=== PATIENT | female | born 1940 | race Caucasian/White ===

== ENCOUNTER 2019-01-12 11:01 | Inpatient (IN) | payer OTHER ==
[2019-01-12] VITALS (11 sets, daily range): BP systolic 120–150; BP diastolic 60–79; PULSE 72–98; RESP 18–20; Ht 152.4 cm; Wt 75.8 kg
[~2019-01-12] VITALS: Ht 152.4 cm; Wt 75.8 kg
[~2019-01-12 11:01] MED LIST: AMIO200T4 PO; AMLO-147 PO; APIX2.5T PO; BENA20TA4 PO; BUME1TAB PO; CALC667C PO; GLIM2TAB PO; IBAN150T7 PO; METO-448 PO; PIOG15TA12 PO; TRAZ-111 PO
[2019-01-12] MEDS ORDERED: ALBUTEROL 0.083% (NEB) 2.5 MG/3 ML AMP INH STA (11:19)
[2019-01-12] MEDS ORDERED: ALBUTEROL 0.083% (NEB) 2.5 MG/3 ML AMP HHN STA (11:56)
--- NOTE | 2019-01-12 13:28 | ERD ---
ER Documentation Chief Complaint Chief Complaint SOB FROM DIALYSIS, DID NOT HAVE DIALYSIS HPI 78-year-old female presents by paramedics from her dialysis center for shortness of breath. According to the paramedics, they were called by the patient's dialysis center prior to initiation of the patient's dialysis for evaluation of the patient being short of breath. Patient states that she has had no chest pain, fever, cough, sputum production or hemoptysis but began feeling short of breath today. 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 Pre-hospital vital signs were reviewed. Pre-hospital diagnostic tests were reviewed. ROS All systems reviewed and are negative except as per history of present illness. Medications Home Meds Active Scripts Benazepril Hcl* (Benazepril Hcl*) 20 Mg Tablet, 20 MG PO BID, #60 TAB Prov:ULYSSES LOVE MD 05/09/16 Apixaban* (Eliquis*) 2.5 Mg Tablet, 5 MG PO BID, #60 TAB 1 Refill Prov:ULYSSES LOVE MD 05/09/16 Metoprolol Tartrate* (Lopressor*) 25 Mg Tab, 12.5 MG PO BID, #60 TAB Prov:ULYSSES LOVE MD 05/09/16 Amiodarone Hcl* (Amiodarone Hcl*) 200 Mg Tablet, 200 MG PO DAILY, #30 TAB Prov:ULYSSES LOVE MD 05/09/16 Amlodipine Besylate* (Amlodipine Besylate*) 10 Mg Tablet, 10 MG PO DAILY, #30 TAB Prov:ULYSSES LOVE MD 05/09/16 Reported Medications Ibandronate Sodium* (Boniva*) 150 Mg Tablet, 150 MG PO Q7D, TAB 05/07/16 Trazodone Hcl* (Trazodone Hcl*) 50 Mg Tablet, 50 MG PO QHS, #30 TAB 05/07/16 Bumetanide* (Bumetanide*) 1 Mg Tablet, 1 MG PO BID, TAB 05/07/16 Glimepiride* (Glimepiride*) 2 Mg Tablet, 2 MG PO WITH BREAKFAST DINNE, TAB 05/07/16 Pioglitazone Hcl* (Actos*) 15 Mg Tablet, 15 MG PO DAILY, #30 TAB 05/07/16 Calcium Acetate* (Calcium Acetate*) 667 Mg Capsule, 1334 MG PO WITH MEALS TID, #60 CAP 05/07/16 Allergies Allergies: Uncoded Allergies: ANTIBIOTIC (Adverse Reaction, Unknown, 05/07/16) PMhx/Soc History of Surgery: Yes (CATARACT, AV FISTULA GRAFT, CHOLECYSTECTOMY) Hx Neurological Disorder: No Hx Respiratory Disorders: No Hx Cardiac Disorders: Yes (HYPERLIPIDEMIA, HTN) Hx Psychiatric Problems: No Hx Miscellaneous Medical Probl: Yes (diabetes, dyslipidemia and chronic kidney disease stage IV dialysis) Hx Alcohol Use: No Hx Substance Use: No Hx Tobacco Use: No Smoking Status: Never smoker FmHx Noncontributory for chief complaint Physical Exam Vitals Vital Signs Date Temp Pulse Resp B/P (MAP) Pulse Ox O2 O2 Flow FiO2 Time Delivery Rate 01/12/19 108 20 94 21 12:34 01/12/19 103 24 91 21 11:39 01/12/19 98.3 85 24 156/80 92 11:14 (105) Physical Exam GENERAL: Elderly female who appears short of breath HEENT: Pupils equal, round, and reactive to light. EOMI. There is no scleral icterus. NECK: C-spine is soft and supple, there is no meningismus. There is no cervical lymphadenopathy. LUNGS: Wheezing and crackles bilaterally. She is tachypneic with retractions. No accessory muscle use HEART: Irregularly irregular rate and rhythm with no murmurs rubs or gallops ABDOMEN: Soft, non-tender, non-distended. There are bowel sounds in all four quadrants. No rebound or guarding. EXTREMITIES: 1+ edema with no cyanosis or clubbing NEURO: The patient moves all four extremities with 5/5 strength. Cranial nerves II - XII are intact. Normal gait. Alert and oriented SKIN: There is no apparent rash or petechiae. HEME/LYMPHATIC: There is no evidence of excessive bruising or lymphedema. PSYCHIATRIC: The patient does not appear anxious or depressed. Result Diagram: 01/12/19 1120 01/12/19 1120 Results 24 hrs Laboratory Tests Test 01/12/19 11:17 01/12/19 11:20 01/12/19 11:43 Bedside Glucose 107 mg/dL White Blood Count 6.5 10^3/ul Red Blood Count 3.48 10^6/ul Hemoglobin 10.3 g/dl Hematocrit 32.7 % Mean Corpuscular Volume 94.0 fl Mean Corpuscular Hemoglobin 29.6 pg Mean Corpuscular 31.5 g/dl Hemoglobin Concent Red Cell Distribution Width 17.4 % Platelet Count 226 10^3/UL Mean Platelet Volume 10.6 fl Immature Granulocytes % 0.500 % Neutrophils % 73.6 % Lymphocytes % 15.0 % Monocytes % 7.8 % Eosinophils % 2.6 % Basophils % 0.5 % Nucleated Red Blood Cells % 0.0 /100WBC Immature Granulocytes # 0.030 10^3/ul Neutrophils # 4.8 10^3/ul Lymphocytes # 1.0 10^3/ul Monocytes # 0.5 10^3/ul Eosinophils # 0.2 10^3/ul Basophils # 0.0 10^3/ul Nucleated Red Blood Cells # 0.0 10^3/ul Prothrombin Time 15.6 Sec Prothrombin Time Ratio 1.2 INR International Normalized Ratio 1.23 Activated Partial Thromboplast 45.1 Sec Time Sodium Level 136 mmol/L Potassium Level 4.3 mmol/L Chloride Level 92 mmol/L Carbon Dioxide Level 32 mmol/L Anion Gap 12 Blood Urea Nitrogen 50 mg/dl Creatinine 6.13 mg/dl Est Glomerular Filtrat Rate mL/min mL/min Glucose Level 103 mg/dl Calcium Level 9.2 mg/dl Total Bilirubin 0.3 mg/dl Direct Bilirubin 0.00 mg/dl Indirect Bilirubin 0.3 mg/dl Aspartate Amino Transf (AST/SGOT) 30 IU/L Alanine 23 IU/L Aminotransferase (ALT/SGPT) Alkaline Phosphatase 146 IU/L Troponin I < 0.012 ng/ml Total Protein 7.2 g/dl Albumin 4.1 g/dl Globulin 3.10 g/dl Albumin/Globulin Ratio 1.32 POC Venous Lactate 0.9 mmol/L Current Medications Medications Dose Sig/Rachana Start Time Status Last (Trade) Ordered Route PRN Stop Time Admin Dose Reason Admin Albuterol 2.5 mg ONCE STAT 01/12/19 DC 01/12/19 (Proventil INH 11:19 11:38 0.083% (Neb)) 01/12/19 11:20 Albuterol 5 mg ONCE STAT 01/12/19 DC 01/12/19 (Proventil HHN 11:56 12:32 0.083% (Neb)) 01/12/19 11:57 Procedures/MDM Patient was taken to a room, seen and evaluated. Comfort measures were initiated. Diagnostic tests were ordered and reviewed. 3 LEAD RHYTHM STRIP: Atrial fibrillation EK lead EKG reviewed by myself: Atrial fibrillation at 102 bpm Left axis deviation, nonspecific interventricular conduction delay Nonspecific ST and T wave changes without ST elevation Impression: Abnormal nonspecific EKG RADIOLOGY: Reviewed with the radiologist CONSULTATION: Hospitalist was notified for admission Dr. Cote was notified for nephrology consultation REEVALUATION: 1320: Diagnostic tests were appreciated. Patient improved with supportive management MEDICAL DECISION MAKING: Patient presents for shortness of breath. Differential diagnosis entertained included asthma, pneumonia, other cardiac and pulmonary concerns. After reviewing the patient's diagnostic tests and clinical presentation, patient appears to have fluid overload related to the patient's renal failure. Patient will require admission for dialysis. She shows no evidence of pneumonia or cardiac ischemia at this time, but this is clearly complicated by her atrial fibrillation Departure Diagnosis: Primary Impression: Heart failure Additional Impression: Renal failure Condition: Fair YOLANDA GEIGER Jan 12, 2019 13:28
[2019-01-12] MEDS ORDERED: ONDANSETRON 4 MG INJ IV PRN (13:30)
[2019-01-12] MEDS ORDERED: ACETAMINOPHEN 325 MG TAB PO PRN (13:30)
[2019-01-12] MEDS ORDERED: HYDR-3671 ORAL (14:28)
[2019-01-12] MEDS ORDERED: SUCR1TAB56 ORAL (14:28)
[2019-01-12] MEDS ORDERED: RANI300T ORAL (14:28)
[2019-01-12] MEDS ORDERED: ATOR20TA65 ORAL (14:28)
[2019-01-12] MEDS ORDERED: BUMETANIDE 1 MG INJ IV STA (14:46)
[2019-01-12] MEDS: HYDROmorphONE 0.5 MG/0.5 ML SYG IV PRN (14:53)
--- NOTE | 2019-01-12 14:59 | HP ---
Date/Time of Note Date/Time of Note DATE: 01/12/19 TIME: 14:46 Assessment/Plan VTE Prophylaxis SCD applied (from Nsg): Yes Pharmacological prophylaxis: heparin Lines/Catheters IV Catheter Type (from Nrsg): Peripheral IV Assessment/Plan Hospital Course Apperas uncomfortable Tachypneic ++ JVD Tachy Lungs with wheeze, mildly labored Abdomen soft nt nd No edema LUE fistula with thrill A/P: 78 yo female wtih ESRD, DMII, A Fib, hypertension presents with acute respiratory failure from pulmonary edema - Requires stat HD. I have contacted Dr Cote for this - Will try IV diuretics ESRD: - HD per renal DMII: - Basl bolus insulin Acute respiratoyr failure: - O2 as needed - Volume removal Anemia of CKD Hypertension: - home meds A Fib: - Continue metroplol and apixaban Dc when stable Result Diagram: 01/12/19 1120 01/12/19 1120 Results 24hrs Laboratory Tests Test 01/12/19 11:17 01/12/19 11:20 01/12/19 11:43 01/12/19 13:21 Bedside Glucose 107 White Blood Count 6.5 Red Blood Count 3.48 #L Hemoglobin 10.3 #L Hematocrit 32.7 #L Mean Corpuscular 94.0 Volume Mean Corpuscular 29.6 Hemoglobin Mean Corpuscular 31.5 L Hemoglobin Concent Red Cell 17.4 H Distribution Width Platelet Count 226 Mean Platelet Volume 10.6 H Immature 0.500 H Granulocytes % Neutrophils % 73.6 Lymphocytes % 15.0 Monocytes % 7.8 Eosinophils % 2.6 Basophils % 0.5 Nucleated Red Blood 0.0 Cells % Immature 0.030 Granulocytes # Neutrophils # 4.8 Lymphocytes # 1.0 Monocytes # 0.5 Eosinophils # 0.2 Basophils # 0.0 Nucleated Red Blood 0.0 Cells # Prothrombin Time 15.6 H Prothrombin Time 1.2 Ratio INR International 1.23 Normalized Ratio Activated 45.1 H Partial Thromboplast Time Sodium Level 136 Potassium Level 4.3 Chloride Level 92 L Carbon Dioxide Level 32 H Anion Gap 12 Blood Urea Nitrogen 50 H Creatinine 6.13 H Est Glomerular Filtrat Rate mL/min Glucose Level 103 Calcium Level 9.2 Total Bilirubin 0.3 Direct Bilirubin 0.00 Indirect Bilirubin 0.3 Aspartate Amino 30 Transf (AST/SGOT) Alanine 23 Aminotransferase (AL T/SGPT) Alkaline Phosphatase 146 H Troponin I < 0.012 Total Protein 7.2 Albumin 4.1 Globulin 3.10 Albumin/Globulin 1.32 Ratio POC Venous Lactate 0.9 Lactic Acid Level 1.0 HPI/ROS Admit Date/Time Admit Date/Time Hx of Present Illness 78 yo female with ESRD, A Fib, DMII, hypertension presents with SOB Patient on chronic HD. Has developed shortness of breath over past day. Went to HD center today and was referred to ED for respiratory status. She is currently tachypneic and unable to provide much further history. Caregiver at bedside says she was find two days ago, this is an acute process. Does make some urine. Todays is only HD session missed ROS Constitutional: no complaints, improved Eyes: no complaints ENT: no complaints Respiratory: no complaints Cardiovascular: no complaints Gastrointestinal: no complaints Genitourinary: no complaints Musculoskeletal: no complaints Skin: no complaints Neurologic: no complaints Endocrine: no complaints Lymphatic: no complaints Psychological: no complaints, nl mood/affect Immunologic: no complaints PMH/Family/Social Past Medical History Medical History: diabetes, hypertension, renal disease Medications Current Medications Ondansetron HCl (Zofran Inj) 4 mg ER BRIDGE PRN IV NAUSEA/VOMITING; Start 01/12/19 at 13:30; Stop 01/13/19 at 13:29 Acetaminophen (Tylenol Tab) 650 mg ER BRIDGE PRN PO .MILD PAIN 1-3 OR TEMP; Start 01/12/19 at 13:30; Stop 01/13/19 at 13:29 Apixaban (Eliquis) 5 mg BID PO ; Start 01/12/19 at 21:00; Status UNV Bumetanide (Bumex) 1 mg BID PO ; Start 01/12/19 at 21:00; Status UNV Metoprolol Tartrate (Lopressor) 12.5 mg BID PO ; Start 01/12/19 at 21:00; Status UNV Trazodone HCl (Desyrel) 50 mg QHS PO ; Start 01/12/19 at 21:00; Status UNV Coded Allergies: warfarin (Verified Allergy, Unknown, 01/12/19) Uncoded Allergies: ANTIBIOTIC (Adverse Reaction, Unknown, 05/07/16) Past Surgical History Past Surgical Hx: no surgical history Family History Significant Family History: no pertinent family hx Social History Alcohol Use: none Smoking Status: Never smoker Drug Use: none Exam/Review of Systems Vital Signs Vitals Vital Signs Date Temp Pulse Resp B/P (MAP) Pulse Ox O2 O2 Flow FiO2 Time Delivery Rate 01/12/19 106 28 148/89 93 Room Air 13:48 (108) 01/12/19 21 12:34 01/12/19 98.3 11:14 CRIS MADERA MD Jan 12, 2019 14:58
[2019-01-12] MEDS ORDERED: NACL 0.9% 3 ML SYG IV SCH (15:00)
[2019-01-12] MEDS ORDERED: BUMETANIDE 2 MG in DEXTROSE 5% 17 ML IV ONE (15:30)
[2019-01-12] MEDS ORDERED: GLUCOSE GEL 15 GRAM TUBE BUCCAL PRN (16:00)
[2019-01-12] MEDS ORDERED: GLUCOSE GEL 15 GRAM TUBE PO PRN ×2 (16:00)
[2019-01-12] MEDS ORDERED: DEXTROSE 50% 50 ML SYRINGE IV PRN ×2 (16:00)
[2019-01-12] MEDS ORDERED: GLUCAGON 1 MG INJ IM PRN (16:00)
--- NOTE | 2019-01-12 19:59 | CONS ---
DATE OF ADMISSION: 01/12/2019 DATE OF CONSULTATION: 01/12/2019 REASON FOR CONSULT: End-stage renal disease. PHYSICIAN REQUESTING CONSULT: Dr. Grayson Sterling HISTORY OF PRESENT ILLNESS: This is a 78-year-old female with a past medical history of end-stage re nal disease on dialysis Thursday, Thursday, Thursday; access AV fistula. The patient's primary nephrolo gist is Dr. Maradiaga. The patient also has a history of dyslipidemia, hypertension, anemia, diabetes, m ineral bone disorder, who presents to [facility] from her dialysis center for short ness of breath. The patient apparently presented to dialysis center, but prior to being initiated on dialysis, she was having ongoing shortness of breath. As a result, she was transferred to the emerg ency room for evaluation. Upon arrival, the patient had a chest x-ray which showed findings of interstitial edema or pneumonia. In the emergency room, the patient was given diuretic therapy. In terms of patient's renal history, patient's primary label rewinder is Dr. Maradiaga, dialyzes at [facility]. The patient's last hemodialysis was Thursday. The patient denies any hemoptysis, hematemesis or breonna tochezia. PAST MEDICAL HISTORY: History of end-stage renal disease, history of diabetes, history of hypertensi on, anemia, mineral bone disorder. PAST SURGICAL HISTORY: Status post AV fistula placement. FAMILY HISTORY: No family history of kidney disease. SOCIAL HISTORY: Does not drink, smoke or do drugs. MEDICATIONS: The patient's medications have been reviewed. ALLERGIES: PLEASE SEE LIST. REVIEW OF SYSTEMS: A 14-point review of systems was conducted. Pertinent positives stated in the HP I, otherwise negative. PHYSICAL EXAMINATION: VITAL SIGNS: Blood pressure is 119/59, respirations 22, pulse 97, temperature 98.6. HEENT: Head is normocephalic. NECK: Supple. HEART: Regular rate. LUNGS: Show diminished breath sounds at the base. ABDOMEN: Soft, nontender to palpation. No rebound or guarding. EXTREMITIES: Negative for clubbing, cyanosis. Positive edema. DERMATOLOGIC: No rashes. MUSCULOSKELETAL: No joint effusion. NEUROLOGIC: No focal deficits. LABORATORY DATA: Reviewed. IMAGING STUDIES: Reviewed. ASSESSMENT AND PLAN: This is a 78-year-old female who presents with: 1. End-stage renal disease. The patient is on dialysis Thursday, Thursday, Thursday with access arteri ovenous fistula. Plan is for urgent hemodialysis. We will dialyze for 3 hours, 3 k bath, calcium 2. 5, ultrafiltrate as tolerated. Anticipate hemodialysis tomorrow as well for volume removal and zheng nue solute clearance. 2. Acute hypoxemic respiratory failure, etiology secondary to volume overload, pulmonary edema. Clementine n is for urgent hemodialysis with goal ultrafiltration approximately 2 to 3 L. 3. Anemia. Monitor H and H levels. 4. Mineral bone disorder. Monitor calcium and phosphorus levels. 5. Hypertension. Continue current blood pressure regimen. 6. Diabetes. Continue current insulin regimen. Thank you, Dr. Sterling, for this interesting consult. It will be a pleasure to follow the patient with you throughout the hospital course. Dictated By: ALDAIR NAVARRO DO NR/NTS Conf#: [id number] DID#: [id number] CC: GRAYSON STERLING;*EndCC*
[2019-01-12] MEDS ORDERED: INSULIN GLARGINE [LANTus] (100 UNITS/ML) SYG SC SCH (20:00)
[2019-01-12] MEDS: INSULIN ASPART [NOVOLOG] 3 ML PEN SC SCH ×2 (21:00→21:41)
[2019-01-13] VITALS (29 sets, daily range): BP systolic 111–157; BP diastolic 60–81; PULSE 69–113; RESP 16–20
[2019-01-13] MEDS: ALBUTEROL/IPRATROPIUM (NEB) 3 ML AMP HHN PRN ×2 (01:55→21:05)
[2019-01-13] MEDS: APIXABAN 5 MG TABLET PO SCH ×3 (01:56→20:47)
[2019-01-13] MEDS: BUMETANIDE 1 MG TAB PO SCH ×3 (01:56→20:47)
[2019-01-13] MEDS: traZODone 50 MG TAB PO SCH ×2 (01:57→20:47)
[2019-01-13] MEDS: METOPROLOL 25 MG TAB PO SCH ×3 (01:58→20:47)
[2019-01-13] MEDS: HYDROmorphONE 0.5 MG/0.5 ML SYG IV PRN ×2 (06:13→20:57)
[2019-01-13] MEDS: INSULIN ASPART [NOVOLOG] 3 ML PEN SC SCH ×4 (07:55→20:50)
--- NOTE | 2019-01-13 10:17 | PN ---
DATE: 01/13/2019 SUBJECTIVE: The patient had hemodialysis yesterday. The patient was able to only tolerate 1 liter r emoval due to cramping. The patient continues to remain tachypneic. No other events noted. OBJECTIVE: VITAL SIGNS: Blood pressure is 135/76, respirations 16, pulse 72, temperature 98.6. HEENT: Head is normocephalic. NECK: Supple. HEART: Regular rate. LUNGS: Show diminished breath sounds at the base. ABDOMEN: Soft, nontender to palpation without rebound or guarding. EXTREMITIES: Negative for clubbing, cyanosis, no edema. DERMATOLOGIC: No rashes. MUSCULOSKELETAL: No joint effusion. NEUROLOGIC: No change in exam. MEDICATIONS: The patient's medications have been reviewed. LABORATORY DATA: Has been reviewed. IMAGING STUDIES: Repeat chest x-ray was reviewed. ASSESSMENT AND PLAN: 1. End-stage renal disease. The patient is on dialysis Thursday, Thursday, Thursday. The patient had urgent dialysis yesterday with approximately 1.2 liters removed. Repeat hemodialysis is scheduled fo r today. 2. Acute hypoxic respiratory failure. Etiology is felt to initially be secondary to volume overload . The patient's repeat x-rays continue to show infiltrate, unclear if this has edema or infectious e tiology. We will attempt dialysis again today. Continue nebulizers. Consider CT scan of the chest. 3. Anemia. Monitor H and H levels. Will give Epogen as needed. 4. Mineral bone disorder. Monitor calcium and phosphorus. 5. Hypertension. Blood pressure controlled. Continue current blood pressure regimen. 5. Diabetes. Continue current insulin regimen. Dictated By: ALDAIR AVILES/MARIA INES Conf#: [id number] DID#: [id number] CC: CRIS MADERA MD;*EndCC*
--- NOTE | 2019-01-13 11:50 | PN ---
Date/Time of Note Date/Time of Note DATE: 01/13/19 TIME: 11:49 Assessment/Plan VTE Prophylaxis Risk score (from Nsg)>0 risk: 8 SCD applied (from Nsg): Yes Pharmacological prophylaxis: heparin Lines/Catheters IV Catheter Type (from Nrsg): Saline Lock Assessment/Plan Hospital Course Apperas comfortable No distress Lungs nonlabored Abdomen soft nt nd No edema LUE fistula with thrill A/P: 78 yo female wtih ESRD, DMII, A Fib, hypertension presents with acute respiratory failure from pulmonary edema - Another HD session today, still with pulmonary congestion ESRD: - HD per renal DMII: - Basl bolus insulin Acute respiratoyr failure: - O2 as needed - Volume removal Anemia of CKD Hypertension: - home meds A Fib: - Continue metroplol and apixaban Dc when stable Result Diagram: 01/13/19 0642 01/13/19 0642 Results 24hrs Laboratory Tests Test 01/12/19 13:21 01/12/19 15:33 01/12/19 21:40 01/12/19 22:30 Lactic Acid Level 1.0 0.9 Bedside Glucose 55 L 80 Test 01/12/19 23:15 01/13/19 06:42 01/13/19 08:08 01/13/19 11:34 Bedside Glucose 118 78 97 White Blood Count 4.6 #L Red Blood Count 3.09 L Hemoglobin 9.3 L Hematocrit 29.7 L Mean Corpuscular 96.1 Volume Mean Corpuscular 30.1 Hemoglobin Mean Corpuscular 31.3 L Hemoglobin Concent Red Cell 17.5 H Distribution Width Platelet Count 179 # Mean Platelet Volume 11.9 H Immature 0.400 Granulocytes % Neutrophils % 72.6 Lymphocytes % 14.6 L Monocytes % 9.4 Eosinophils % 2.6 Basophils % 0.4 Nucleated Red Blood 0.0 Cells % Immature 0.020 Granulocytes # Neutrophils # 3.3 Lymphocytes # 0.7 L Monocytes # 0.4 Eosinophils # 0.1 Basophils # 0.0 Nucleated Red Blood 0.0 Cells # Sodium Level 139 Potassium Level 4.3 Chloride Level 99 Carbon Dioxide Level 30 Anion Gap 10 Blood Urea Nitrogen 27 #H Creatinine 3.64 #H Est Glomerular Filtrat Rate mL/min Glucose Level 67 #L Hemoglobin A1c 6.0 H Calcium Level 8.5 Total Bilirubin 0.3 Direct Bilirubin 0.00 Indirect Bilirubin 0.3 Aspartate Amino 27 Transf (AST/SGOT) Alanine 21 Aminotransferase (AL T/SGPT) Alkaline Phosphatase 131 H Total Protein 6.7 Albumin 3.6 Globulin 3.10 Albumin/Globulin 1.16 Ratio Subjective 24 Hr Interval Summary Free Text/Dictation Had HD yesterday Breathing much more comfortably today XR still showing some congestion Exam/Review of Systems Exam Vitals Vital Signs Date Temp Pulse Resp B/P (MAP) Pulse Ox O2 O2 Flow FiO2 Time Delivery Rate 01/13/19 97.9 78 18 156/71 98 11:08 (99) 01/13/19 Nasal 2.0 08:20 Cannula 01/13/19 28 01:55 Intake and Output 01/12/19 01/12/19 01/13/19 1515:00 23:00 07:00 IntakeIntake Total 17 ml OutputOutput Total 2400 ml BalanceBalance 17 ml -2400 ml Results Results 24hrs Laboratory Tests Test 01/12/19 13:21 01/12/19 15:33 01/12/19 21:40 01/12/19 22:30 Lactic Acid Level 1.0 0.9 Bedside Glucose 55 L 80 Test 01/12/19 23:15 01/13/19 06:42 01/13/19 08:08 01/13/19 11:34 Bedside Glucose 118 78 97 White Blood Count 4.6 #L Red Blood Count 3.09 L Hemoglobin 9.3 L Hematocrit 29.7 L Mean Corpuscular 96.1 Volume Mean Corpuscular 30.1 Hemoglobin Mean Corpuscular 31.3 L Hemoglobin Concent Red Cell 17.5 H Distribution Width Platelet Count 179 # Mean Platelet Volume 11.9 H Immature 0.400 Granulocytes % Neutrophils % 72.6 Lymphocytes % 14.6 L Monocytes % 9.4 Eosinophils % 2.6 Basophils % 0.4 Nucleated Red Blood 0.0 Cells % Immature 0.020 Granulocytes # Neutrophils # 3.3 Lymphocytes # 0.7 L Monocytes # 0.4 Eosinophils # 0.1 Basophils # 0.0 Nucleated Red Blood 0.0 Cells # Sodium Level 139 Potassium Level 4.3 Chloride Level 99 Carbon Dioxide Level 30 Anion Gap 10 Blood Urea Nitrogen 27 #H Creatinine 3.64 #H Est Glomerular Filtrat Rate mL/min Glucose Level 67 #L Hemoglobin A1c 6.0 H Calcium Level 8.5 Total Bilirubin 0.3 Direct Bilirubin 0.00 Indirect Bilirubin 0.3 Aspartate Amino 27 Transf (AST/SGOT) Alanine 21 Aminotransferase (AL T/SGPT) Alkaline Phosphatase 131 H Total Protein 6.7 Albumin 3.6 Globulin 3.10 Albumin/Globulin 1.16 Ratio Medications Medication Current Medications Ondansetron HCl (Zofran Inj) 4 mg ER BRIDGE PRN IV NAUSEA/VOMITING Last a dministered on 01/12/19at 14:54; Admin Dose 4 MG; Start 01/12/19 at 13:30; Stop 01/13/19 at 13:29 Acetaminophen (Tylenol Tab) 650 mg ER BRIDGE PRN PO .MILD PAIN 1-3 OR TEMP; Start 01/12/19 at 13:30; Stop 01/13/19 at 13:29 Apixaban (Eliquis) 5 mg BID PO Last administered on 01/13/19at 09:04; Admin Dose 5 MG; Start 01/12/19 at 21:00 Bumetanide (Bumex) 1 mg BID PO Last administered on 01/13/19at 09:04; Admin Dose 1 MG; Start 01/12/19 at 21:00 Metoprolol Tartrate (Lopressor) 12.5 mg BID PO Last administered on 01/13/19at 09:05; Admin Dose 12.5 MG; Start 01/12/19 at 21:00 Trazodone HCl (Desyrel) 50 mg QHS PO Last administered on 01/13/19at 01:57; Admin Dose 50 MG; Start 01/12/19 at 21:00 IV Flush (NS 3 ml) 3 ml PER PROTOCOL IV ; Start 01/12/19 at 15:00 Hydromorphone HCl (Dilaudid) 0.5 mg Q4H PRN IV .SEVERE PAIN 7-10 Last administered on 01/13/19at 06:13; Admin Dose 0.5 MG; Start 01/12/19 at 15:00 Insulin Aspart (Novolog Insulin Pen) NOVOLOG *MILD* ALGORITHM WITH MEALS BEDTIME SC ; Start 01/12/19 at 18:00 Miscellaneous Information 1 ea NOTE XX ; Start 01/12/19 at 16:00 Glucose (Glutose) 15 gm Q15M PRN PO DECREASED GLUCOSE; Start 01/12/19 at 16:00 Glucose (Glutose) 22.5 gm Q15M PRN PO DECREASED GLUCOSE; Start 01/12/19 at 16:00 Dextrose (D50w Syringe) 25 ml Q15M PRN IV DECREASED GLUCOSE; Start 01/12/19 at 16:00 Dextrose (D50w Syringe) 50 ml Q15M PRN IV DECREASED GLUCOSE; Start 01/12/19 at 16:00 Glucagon (Glucagen) 1 mg Q15M PRN IM DECREASED GLUCOSE; Start 01/12/19 at 16:00 Glucose (Glutose) 15 gm Q15M PRN BUCCAL DECREASED GLUCOSE; Start 01/12/19 at 16:00 Albuterol/ Ipratropium (Duoneb) 3 ml Q4H RESP THERAPY PRN HHN WHEEZING AND SOB Last administered on 01/13/19at 01:55; Admin Dose 3 ML; Start 01/13/19 at 01:00 CRIS MADERA MD Jan 13, 2019 11:50
--- NOTE | 2019-01-13 14:44 | RADRPT ---
Echocardiogram Report Patient Name: Mp BARRETT ID: [id number] : 1940 ([id number] )Study Date: 01/13/2019 9:36:28 AM Gender: FAccession #: [id number] Tech: Rufino Farias [facility] Location: 529-[address] Ref.Physician: CRIS MADERA Height(Cm): BSA: Weight(Kg): Quality: AdequateOrder Physician: CRIS MADERA Account #: Procedures: Echocardiographic Report: Transthoracic echocardiogram with complete 2D, M-Mode, and doppler examination. Indications: Congestive Heart Failure. Measurements: 2D/M Mode Doppler Measurement Value Normal Range Measurement Value Normal Range LVIDd 2D 3.9 [ 3.8 - 5.2 ] cm AV Peak Jimi 1.2 [ 100.0 - 170.0 ] cm/sec LVIDs 2D 2.8 [ 2.2 - 3.5 ] cm AV Peak PG 6.0 [ 2.0 - 9.0 ] mmHg LVPWd 2D 1.1 [ 0.6 - 0.9 ] cm LVOT Peak Jimi 1.0 [ 70.0 - 110.0 ] cm/sec IVSd 2D 1.3 [ 0.6 - 0.9 ] cm LVOT Peak PG 4.0 [ 2.0 - 6.0 ] mmHg AoR Diam 2D 3.4 [ 2.3 - 3.1 ] cm MV E Peak Jimi 1.2 [ 60.0 - 130.0 ] cm/sec EDV 2D 67.5 [ 46.0 - 106.0 ] ml MV A Peak Jimi 0.5 [ 100.0 - 120.0 ] cm/sec ESV 2D 30.9 [ 14.0 - 42.0 ] ml MV E/A 2.5 [ 0.8 - 1.5 ] ratio EF 2D 54.2 [ 54.0 - 74.0 ] percent MV Decel Time 225 [ 104 - 258 ] msec LA Dimen 2D 3.6 [ 2.7 - 3.8 ] cm Lat E` Jimi 0.1 [ 10.0 - 15.0 ] cm/sec Lateral E/E` 18.0 [ 1.0 - 2.0 ] ratio MV E/A 2.5 [ 0.8 - 1.5 ] ratio TR Peak Jimi 2.9 [ 100.0 - 280.0 ] cm/sec TR Peak PG 33.0 mmHg RVSP 48.0 [ 10.0 - 36.0 ] mmHg Findings: Left Ventricle: Normal left ventricular systolic function. Normal left ventricular cavity size. Sigmoid septum. Ejection fraction is visually estimated at 60 %. Abnormal Diastolic Function. Right Ventricle: Normal right ventricular systolic function. Mild enlargement of right ventricle. Left Atrium: The left atrium is normal in size. Right Atrium: The right atrium is normal in size. Mitral Valve: Mild mitral leaflet calcification. Mild mitral annular calcification. Mild mitral valve regurgitation. Aortic Valve: No hemodynamically significant aortic stenosis by doppler. Aortic cusps appear mildly calcified. Mild aortic valve regurgitation. Tricuspid Valve: Normal appearance of the tricuspid valve. The estimated Peak RVSP is 48 mmHg. There is moderate tricuspid regurgitation. Pericardium: Small pericardial effusion. Aorta: Normal aortic root. IVC: Dilated IVC without respiratory collapse consistent with elevated right atrial pressure. Conclusions: Normal left ventricular systolic function. Normal left ventricular cavity size. Sigmoid septum. Ejection fraction is visually estimated at 60 %. Abnormal Diastolic Function. Normal right ventricular systolic function. Mild enlargement of right ventricle. The left atrium is normal in size. The right atrium is normal in size. Mild mitral valve regurgitation. No hemodynamically significant aortic stenosis by doppler. Mild aortic valve regurgitation. The estimated Peak RVSP is 48 mmHg. There is moderate tricuspid regurgitation. Small pericardial effusion. Electronically Signed By: Arnold Main 2019-01-13 14:43:10 PDT
[2019-01-14] VITALS (18 sets, daily range): BP systolic 105–153; BP diastolic 63–81; PULSE 76–105; RESP 16–89
[2019-01-14] MEDS: INSULIN ASPART [NOVOLOG] 3 ML PEN SC SCH ×3 (07:53→17:34)
[2019-01-14] MEDS: BUMETANIDE 1 MG TAB PO SCH (08:35)
[2019-01-14] MEDS: METOPROLOL 25 MG TAB PO SCH (08:35)
[2019-01-14] MEDS: APIXABAN 5 MG TABLET PO SCH (08:35)
--- NOTE | 2019-01-14 08:58 | PN ---
DATE: 01/14/2019 SUBJECTIVE: The patient had hemodialysis yesterday, tolerated well. No other events noted. OBJECTIVE: VITAL SIGNS: Blood pressure 142/65, pulse 105, respirations 16, temperature 98.3. HEENT: Head is normocephalic. NECK: Supple. HEART: Regular rate. LUNGS: Show diminished breath sounds at the base. ABDOMEN: Soft, nontender to palpation without rebound or guarding. EXTREMITIES: Negative for clubbing, cyanosis, no edema. DERMATOLOGIC: No rashes. MUSCULOSKELETAL: No joint effusion. NEUROLOGIC: No change in exam. MEDICATIONS: The patient's medications have been reviewed. LABORATORY DATA: Has been reviewed. IMAGING STUDIES: Have been reviewed. ASSESSMENT AND PLAN: 1. End-stage renal disease. The patient is on dialysis Thursday, Thursday, Thursday. The patient had dialysis 2 days in a row. Will have dialysis again today to keep the patient on dialysis schedule. Will dialyze for 2 hours and 2k bath, calcium 2.5. 2. Acute hypoxic respiratory failure. Etiology is felt to be secondary to volume overload. Questio nable component of reactive airway disease. Continue ultrafiltration dialysis. Continue to monitor. Continue nebulizers. 3. Anemia. Monitor H and H levels. 4. Mineral bone disorder. Monitor calcium and phosphorus levels. 5. Hypertension. Continue current blood pressure regimen. 6. Diabetes. Continue current insulin regimen. Dictated By: ALDAIR AVILES/NTS Conf#: [id number] DID#: [id number] CC: CRIS MADERA MD;*EndCC*
[2019-01-14] MEDS: HYDROmorphONE 0.5 MG/0.5 ML SYG IV PRN (09:31)
--- NOTE | 2019-01-14 13:55 | DS ---
Date/Time of Note Date/Time of Note DATE: 01/14/19 TIME: 13:54 Discharge Summary Admission/Discharge Info Admit Date/Time Jan 12, 2019 at 13:29 Discharge Date/Time Discharge Diagnosis Acute respiratory failure ESRD Patient Condition: Stable Hx of Present Illness 78 yo female with ESRD, A Fib, DMII, hypertension presents with SOB Patient on chronic HD. Has developed shortness of breath over past day. Went to HD center today and was referred to ED for respiratory status. She is currently tachypneic and unable to provide much further history. Caregiver at bedside says she was find two days ago, this is an acute process. Does make some urine. Todays is only HD session missed Hospital Course A/P: 78 yo female wtih ESRD, DMII, A Fib, hypertension presents with acute respiratory failure from pulmonary edema She underwent a couiple dialysis sessions and her shortness of breath improved to baseline She was encouraged to conintue HD per her usual schedule after discharge Home Meds Active Scripts Apixaban* (Eliquis*) 2.5 Mg Tablet, 5 MG PO BID, #60 TAB 1 Refill Prov:ULYSSES LOVE MD 05/09/16 Metoprolol Tartrate* (Lopressor*) 25 Mg Tab, 12.5 MG PO BID, #60 TAB Prov:ULYSSES LOVE MD 05/09/16 Reported Medications Sucralfate* (Carafate*) 1 Gm Tab, 1 TAB ORAL QID 01/12/19 Ranitidine Hcl* (Ranitidine Hcl*) 300 Mg Tablet, 1 TAB ORAL DAILY 01/12/19 Hydralazine Hcl* (Hydralazine Hcl*) 25 Mg Tab, 1 TAB ORAL BID PRN for HTN 01/12/19 Atorvastatin Calcium (Atorvastatin Calcium) 20 Mg Tablet, 1 TAB ORAL QHS 01/12/19 Ibandronate Sodium* (Boniva*) 150 Mg Tablet, 150 MG PO Q7D, TAB 05/07/16 Trazodone Hcl* (Trazodone Hcl*) 50 Mg Tablet, 50 MG PO QHS, #30 TAB 05/07/16 Bumetanide* (Bumetanide*) 1 Mg Tablet, 1 MG PO BID, TAB 05/07/16 Glimepiride* (Glimepiride*) 2 Mg Tablet, 2 MG PO WITH BREAKFAST DINNE, TAB 05/07/16 Pioglitazone Hcl* (Actos*) 15 Mg Tablet, 15 MG PO DAILY, #30 TAB 05/07/16 Discontinued Reported Medications Calcium Acetate* (Calcium Acetate*) 667 Mg Capsule, 1334 MG PO WITH MEALS TID, #60 CAP 05/07/16 Discontinued Scripts Benazepril Hcl* (Benazepril Hcl*) 20 Mg Tablet, 20 MG PO BID, #60 TAB Prov:ULYSSES LOVE MD 05/09/16 Amiodarone Hcl* (Amiodarone Hcl*) 200 Mg Tablet, 200 MG PO DAILY, #30 TAB Prov:ULYSSES LOVE MD 05/09/16 Amlodipine Besylate* (Amlodipine Besylate*) 10 Mg Tablet, 10 MG PO DAILY, #30 TAB Prov:ULYSSES LOVE MD 05/09/16 Primary Care Provider Care Physician No Primary Pending Labs Laboratory Tests Test 01/13/19 17:34 01/13/19 20:49 01/14/19 07:53 01/14/19 12:16 Bedside 105 126 92 112 Glucose mg/dL (70-220) mg/dL (70-220) mg/dL (70-220) mg/dL (70-220) CRIS MADERA MD Jan 14, 2019 13:54
== END 2019-01-14 19:04 | disposition home or self-care (01) | DRG 682 ==
LOC: E/R 11:01 → TEL 13:29 → SUATTDRO 14:44 → TEL 20:32
PROVIDERS: ADMIT Internal Medicine; ATTEND Internal Medicine
PROC: 5A1D70Z Performance of Urinary Filtration, Intermittent, Less than 6 Hours Per Day (ICD-10-PCS; principal; 2019-01-13)
DX: I12.0 Hypertensive chronic kidney disease with stage 5 chronic kidney disease or end stage renal disease (principal); N18.6 End stage renal disease; J96.01 Acute respiratory failure with hypoxia; E11.22 Type 2 diabetes mellitus with diabetic chronic kidney disease; E78.5 Hyperlipidemia, unspecified; I48.91 Unspecified atrial fibrillation; D63.1 Anemia in chronic kidney disease; Z90.49 Acquired absence of other specified parts of digestive tract
CPT/HCPCS: 36415; 71045; 80053; 82962; 83036; 83605; 84484; 85025; 85610; 85730; 86706; 87081; 87340; 90935; 93005; 93306; 94640; 94664; J1170; J1815; J2405

== ENCOUNTER 2019-02-04 07:35 | Inpatient (IN) | payer OTHER ==
[~2019-02-04] VITALS: Ht 152.4 cm; Wt 74.0 kg
[2019-02-04] VITALS (18 sets, daily range): BP systolic 118–178; BP diastolic 67–93; PULSE 65–88; RESP 18–20; Ht 152.4 cm; Wt 74.0 kg
[~2019-02-04 07:35] MED LIST changes: -AMIO200T4 PO; -AMLO-147 PO; +ATOR20TA65 ORAL; -BENA20TA4 PO; -CALC667C PO; +HYDR-3671 ORAL; +RANI300T ORAL; +SUCR1TAB56 ORAL
[2019-02-04] MEDS ORDERED: ONDANSETRON 4 MG INJ IV STA (08:09)
[2019-02-04] MEDS ORDERED: morphine 4 MG/ML VIAL IV STA (08:09)
[2019-02-04] MEDS ORDERED: SOD CHLORIDE 0.9% 1,000 ML IV STA (08:09)
--- NOTE | 2019-02-04 10:04 | ERD ---
ER Documentation Chief Complaint Chief Complaint abd pain with nausea x 1 day HPI Very pleasant 79-year-old female with prior history of small bowel obstructions who presents with a lack of bowel movement for 24 hours, nausea with nonbloody nonbilious emesis. The pain to her abdomen is moderate to severe, cramping and constant to the periumbilical region. This feels similar to bowel obstructions in the past. ROS All systems reviewed and are negative except as per history of present illness. Medications Home Meds Reported Medications Amlodipine Besylate* (Amlodipine Besylate*) 10 Mg Tablet, 10 MG PO DAILY, #30 TAB 02/04/19 Metoprolol Succinate* (Toprol XL*) 50 Mg Tab.er.24h, 50 MG PO BID, #30 TAB 02/04/19 Trazodone Hcl* (Desyrel*) 50 Mg Tab, 50 MG PO QHS, #30 TAB 02/04/19 Pantoprazole* (Pantoprazole*) 40 Mg Tablet.dr, 40 MG PO AC BREAKFAST, TAB 02/04/19 Glimepiride* (Glimepiride*) 2 Mg Tablet, 1 MG PO WITH BREAKFAST, TAB 02/04/19 Diltiazem Hcl* (Diltiazem XT) 240 Mg Capsule.er, 240 MG PO DAILY, #30 CAP 02/04/19 Bumetanide* (Bumetanide*) 1 Mg Tablet, 1 MG PO BID, TAB 02/04/19 Apixaban* (Eliquis*) 2.5 Mg Tablet, 2.5 MG PO BID, TAB 02/04/19 Sucralfate* (Carafate*) 1 Gm Tab, 2 GM PO AC MEALS AND BEDTIME, TAB 02/04/19 Atorvastatin Calcium* (Atorvastatin Calcium*) 20 Mg Tablet, 20 MG PO QHS, #30 TAB 02/04/19 Budesonide-Formoterol Fumarate* (Symbicort*) 160-4.5 Hfa.aer.ad, 2 PUFF INHALATION BID, #1 EACH 02/04/19 Hydralazine Hcl* (Hydralazine Hcl*) 25 Mg Tab, 25 MG PO BID, #60 TAB 02/04/19 Discontinued Reported Medications Sucralfate* (Carafate*) 1 Gm Tab, 1 TAB ORAL QID 01/12/19 Ranitidine Hcl* (Ranitidine Hcl*) 300 Mg Tablet, 1 TAB ORAL DAILY 01/12/19 Hydralazine Hcl* (Hydralazine Hcl*) 25 Mg Tab, 1 TAB ORAL BID PRN for HTN 01/12/19 Atorvastatin Calcium (Atorvastatin Calcium) 20 Mg Tablet, 1 TAB ORAL QHS 01/12/19 Ibandronate Sodium* (Boniva*) 150 Mg Tablet, 150 MG PO Q7D, TAB 05/07/16 Trazodone Hcl* (Trazodone Hcl*) 50 Mg Tablet, 50 MG PO QHS, #30 TAB 05/07/16 Bumetanide* (Bumetanide*) 1 Mg Tablet, 1 MG PO BID, TAB 05/07/16 Glimepiride* (Glimepiride*) 2 Mg Tablet, 2 MG PO WITH BREAKFAST DINNE, TAB 05/07/16 Pioglitazone Hcl* (Actos*) 15 Mg Tablet, 15 MG PO DAILY, #30 TAB 05/07/16 Discontinued Scripts Apixaban* (Eliquis*) 2.5 Mg Tablet, 5 MG PO BID, #60 TAB 1 Refill Prov:ULYSSES LOVE MD 05/09/16 Metoprolol Tartrate* (Lopressor*) 25 Mg Tab, 12.5 MG PO BID, #60 TAB Prov:ULYSSES LOVE MD 05/09/16 Allergies Allergies: Coded Allergies: warfarin (Verified Allergy, Unknown, 02/04/19) PMhx/Soc History of Surgery: Yes (AVF GRAFT, CHOLECYSTECTOMY, CATARACT SX) Anesthesia Reaction: No Hx Neurological Disorder: Yes Hx Respiratory Disorders: No Hx Cardiac Disorders: Yes (HTN , HYPERLIPIDIMIA,) Hx Psychiatric Problems: No Hx Miscellaneous Medical Probl: No Hx Alcohol Use: No Hx Substance Use: No Hx Tobacco Use: No Smoking Status: Never smoker FmHx Family History: No diabetes Physical Exam Vitals Vital Signs Date Temp Pulse Resp B/P (MAP) Pulse Ox O2 O2 Flow FiO2 Time Delivery Rate 02/04/19 67 20 134/67 98 Nasal 2.0 10:26 (89) Cannula 02/04/19 98.2 87 18 192/89 96 07:44 (123) Physical Exam General: Well developed, well nourished, no acute distress Head: Normocephalic, atraumatic. Eyes: Pupils equally reactive, EOM intact ENT: Moist mucous membranes Neck: Supple, no lymphadenopathy Respiratory: Lungs clear bilaterally, no distress Cardiovascular: RRR, no murmurs, rubs, or gallops Abdominal: Soft, protuberant, mild generalized tenderness : Deferred MSK: No edema, no unilateral swelling, 5/5 strength Neurologic: Alert and oriented, moving all extremities, normal speech, no focal weakness, no cerebellar signs Skin: No rash Psych: Normal mood Result Diagram: 02/04/19 0815 02/04/19 0815 Results 24 hrs Laboratory Tests Test 02/04/19 08:15 02/04/19 08:19 White Blood Count 7.5 10^3/ul Red Blood Count 3.42 10^6/ul Hemoglobin 10.1 g/dl Hematocrit 32.1 % Mean Corpuscular Volume 93.9 fl Mean Corpuscular Hemoglobin 29.5 pg Mean Corpuscular Hemoglobin Concent 31.5 g/dl Red Cell Distribution Width 18.1 % Platelet Count 210 10^3/UL Mean Platelet Volume 10.8 fl Immature Granulocytes % 0.300 % Neutrophils % 78.3 % Lymphocytes % 8.7 % Monocytes % 10.2 % Eosinophils % 2.1 % Basophils % 0.4 % Nucleated Red Blood Cells % 0.0 /100WBC Immature Granulocytes # 0.020 10^3/ul Neutrophils # 5.9 10^3/ul Lymphocytes # 0.7 10^3/ul Monocytes # 0.8 10^3/ul Eosinophils # 0.2 10^3/ul Basophils # 0.0 10^3/ul Nucleated Red Blood Cells # 0.0 10^3/ul Prothrombin Time 14.8 Sec Prothrombin Time Ratio 1.2 INR International Normalized Ratio 1.15 Sodium Level 140 mmol/L Potassium Level 4.2 mmol/L Chloride Level 94 mmol/L Carbon Dioxide Level 34 mmol/L Anion Gap 12 Blood Urea Nitrogen 34 mg/dl Creatinine 5.73 mg/dl Est Glomerular Filtrat Rate mL/min mL/min Glucose Level 118 mg/dl Calcium Level 9.7 mg/dl Total Bilirubin 0.4 mg/dl Direct Bilirubin 0.00 mg/dl Indirect Bilirubin 0.4 mg/dl Aspartate Amino Transf (AST/SGOT) 21 IU/L Alanine Aminotransferase (ALT/SGPT) 21 IU/L Alkaline Phosphatase 183 IU/L Troponin I < 0.012 ng/ml Total Protein 7.7 g/dl Albumin 4.2 g/dl Globulin 3.50 g/dl Albumin/Globulin Ratio 1.20 Lipase < 10 U/L POC Venous Lactate 1.0 mmol/L Current Medications Medications Dose Sig/Rachana Start Time Status Last (Trade) Ordered Route PRN Stop Time Admin Dose Reason Admin Sodium 1,000 ml @ Q1H STAT 02/04/19 DC 02/04/19 Chloride 1,000 mls/hr IV 08:09 02/04/19 08:22 09:08 Morphine 4 mg ONCE STAT 02/04/19 DC 02/04/19 Sulfate IV 08:09 02/04/19 08:22 (morphine) 08:10 Ondansetron 4 mg ONCE STAT 02/04/19 DC 02/04/19 HCl (Zofran IV 08:09 02/04/19 08:22 Inj) 08:10 Ondansetron 4 mg BRIDGE ORDER 02/04/19 HCl (Zofran PRN IV 10:30 02/05/19 Inj) NAUSEA/VOMITI 10:29 NG 650 mg ER BRIDGE 02/04/19 Acetaminophen PRN PO 10:30 02/05/19 (Tylenol .MILD PAIN 10:29 Tab) 1-3 OR TEMP Procedures/MDM EKG, MONITORS, & DIAGNOSTIC IMAGING: EKG: I reviewed and interpreted a 12-lead EKG. Rhythm: A. fib, rate controlled ST Changes: No contiguous ST segment elevations T waves: No contiguous T wave inversions Impression: [No evidence of acute cardiac ischemia] CT IMPRESSION: 1. Moderately dilated fluid-filled small bowel loops in the mid abdomen likely due to anterior abdominal adhesions from prior abdominal surgery. Increased small bowel dilatation since prior exam consistent with early or partial small bowel obstruction. 2. Small right pleural effusion. Unchanged. 3. Cardiomegaly with small pericardial effusion. Unchanged. 4. Status post cholecystectomy. 5. Bilateral renal atrophy. 6. Subacute fracture of the left inferior pubic ramus unchanged. 7. Status post hysterectomy. LAB INTERPRETATION: I reviewed the laboratory testing and it shows chronic renal failure MEDICAL DECISION MAKING: patient presents with abdominal pain with signs and symptoms concerning for bowel obstruction with similar history. Patient warrants laboratory testing, symptom control and CT imaging of the abdomen and pelvis ER COURSE: * Patient's creatinine is elevated but that has been elevated in the past. * Patient was treated with IV fluids pain control medication with improved symptomatology. CT showing evidence of bowel obstruction. NG tube placed. * General surgeon on-call, Dr. Stone notified CONSULTATION: Dr. Stone DISPOSITION PLAN: Medical surgical admission Accepting care team and consultations: I discussed the current laboratory data, diagnostic imaging and emergency care provided. Admitting team: Panel team Admitting team indication: Insurance directed Departure Diagnosis: Primary Impression: Small bowel obstruction Additional Impressions: End stage renal disease on dialysis History of atrial fibrillation Condition: Stable MAGGIE BUSTILLO MD Feb 04, 2019 10:04
[2019-02-04] MEDS ORDERED: HYDR-3671 PO (10:25)
[2019-02-04] MEDS ORDERED: ATOR20TA38 PO (10:26)
[2019-02-04] MEDS ORDERED: BUDE6HFA INHALATION (10:26)
[2019-02-04] MEDS ORDERED: SUCR1TAB56 PO (10:27)
[2019-02-04] MEDS ORDERED: BUME1TAB PO (10:28)
[2019-02-04] MEDS ORDERED: DILT240C98 PO (10:28)
[2019-02-04] MEDS ORDERED: APIX2.5T PO (10:28)
[2019-02-04] MEDS ORDERED: PANT40TA4 PO (10:29)
[2019-02-04] MEDS ORDERED: GLIM2TAB PO (10:29)
[2019-02-04] MEDS ORDERED: ACETAMINOPHEN 325 MG TAB PO PRN (10:30)
[2019-02-04] MEDS ORDERED: ONDANSETRON 4 MG INJ IV PRN ×2 (10:30→15:00)
[2019-02-04] MEDS ORDERED: TRAZ-149 PO (10:30)
[2019-02-04] MEDS ORDERED: METO-319 PO (10:31)
[2019-02-04] MEDS ORDERED: AMLO-147 PO (10:32)
--- NOTE | 2019-02-04 14:45 | HP ---
Date/Time of Note Date/Time of Note DATE: 02/04/19 TIME: 14:30 Assessment/Plan VTE Prophylaxis Pharmacological prophylaxis: NA/contraindicated Pharm contraindication: low risk/ambulating Lines/Catheters IV Catheter Type (from Nrsg): Saline Lock Assessment/Plan Hospital Course SUBJECTIVE: Lying in bed, having NG tube to low intermittent suction, draining moderate amount of greenish secretions. She is also feels like having a bowel movement shortly.Improved abd pain. OBJECTIVE: Vital signs-see below PHYSICAL EXAM: Constitutional: Obese female,not in acute distress. HEENT: Head atraumatic and normocephalic. Eyes: Extraocular muscles intact. Anicteric sclerae. Pupils equal bilaterally, reactive to light. NECK: Supple without lymph node. CHEST: Managed bibasilar. . No wheezing. No rhonchi. HEART: S1, S2. Regular rate and rhythm. ABDOMEN: NG tube to LIS, draining greenish in moderate amount. Mild tenderness to lower abdominal areas. No rebound tenderness. Bowel sounds hypoactive. EXTREMITIES: No cyanosis, clubbing or edema. NEUROLOGIC: Alert and oriented x3. No focal deficit. No sensory deficit. PSYCHOSOCIAL: No signs of depression. INTEGUMENTARY: No open wounds. ASSESSMENT AND PLAN: 79 yo obese F w/ ESRD on hemodialysis MWF, left AV fistula, atrial fibrillation,copd, diabetes, hypertension, hyperlipidemia, prior abdominal surgeries, was brought into the emergency room with severe abdominal pain associated with multiple episodes of nonbilious/nonbloody vomiting and inability to have a bowel movement x24 hours duration,found to have partial SBO.. Partial small bowel obstruction, recurrent -Symptoms improving. Continue NG tube decompression. -N.p.o./bowel rest, pain control -Very on board and recommended KUB in the a.m. ESRD/HD MWF -Access: Left AV fistula -Nephrology consultation -HD per nephro team Anemia of ESRD -H&H fairly stable. -Epogen if needed per nephro team. DMII -A1c. Since patient will be n.p.o., we will put her on every 4 sliding scale insulin. Hypertension -Currently patient's blood pressure is slightly high, partly due to pain. -Pain control, in light of n.p.o. status, hold home antihypertensives and IV hydralazine PRN for SBP above 160. Hx A. fib -HR stable -Obtain a stat EKG to determine current rhythm. In light of n.p.o., will hold off to oral Cardizem/Toprol. If patient remains in A. fib, will need to give IV metoprolol for which patient needs to be transferred to a telemetry unit which is communicated w/nsg staff. -Resume anticoagulation in a.m. if stable for oral. COPD -Resume home medications Dyslipidemia -Resume statin when stable for p.o. DVT prophylaxis: Eliquis in a.m. Rest of the management depend on clinical course. Approximately 60 m spent on this history and physical. Patient was seen in collaboration with Dr. Miller. Result Diagram: 02/04/19 0815 02/04/19 0815 Results 24hrs Laboratory Tests Test 02/04/19 08:15 02/04/19 08:19 02/04/19 13:50 White Blood Count 7.5 # Red Blood Count 3.42 L Hemoglobin 10.1 L Hematocrit 32.1 L Mean Corpuscular Volume 93.9 Mean Corpuscular Hemoglobin 29.5 Mean Corpuscular Hemoglobin Concent 31.5 L Red Cell Distribution Width 18.1 H Platelet Count 210 Mean Platelet Volume 10.8 H Immature Granulocytes % 0.300 Neutrophils % 78.3 H Lymphocytes % 8.7 L Monocytes % 10.2 Eosinophils % 2.1 Basophils % 0.4 Nucleated Red Blood Cells % 0.0 Immature Granulocytes # 0.020 Neutrophils # 5.9 Lymphocytes # 0.7 L Monocytes # 0.8 Eosinophils # 0.2 Basophils # 0.0 Nucleated Red Blood Cells # 0.0 Prothrombin Time 14.8 Prothrombin Time Ratio 1.2 INR International Normalized Ratio 1.15 Sodium Level 140 Potassium Level 4.2 Chloride Level 94 L Carbon Dioxide Level 34 H Anion Gap 12 Blood Urea Nitrogen 34 H Creatinine 5.73 H Est Glomerular Filtrat Rate mL/min Glucose Level 118 Calcium Level 9.7 Total Bilirubin 0.4 Direct Bilirubin 0.00 Indirect Bilirubin 0.4 Aspartate Amino Transf (AST/SGOT) 21 Alanine Aminotransferase (ALT/SGPT) 21 Alkaline Phosphatase 183 H Troponin I < 0.012 Total Protein 7.7 Albumin 4.2 Globulin 3.50 H Albumin/Globulin Ratio 1.20 Lipase < 10 L POC Venous Lactate 1.0 Bedside Glucose 129 HPI/ROS Admit Date/Time Admit Date/Time Feb 04, 2019 at 10:25 Hx of Present Illness This is a 78-year-old Greek-speaking female with a history of ESRD on hemodialysis MWF, left AV fistula, atrial fibrillation, diabetes, copd,hypertension, hyperlipidemia, prior abdominal surgeries, was brought into the emergency room with severe abdominal pain associated with multiple episodes of nonbilious/nonbloody vomiting and inability to have a bowel movement x24 hours duration. Apparently, patient was discharged about a month ago from [facility] for acute respiratory failure with volume overload requiring few additional HD sessions.She has been having recurrent SBO. Patient denied chest pain, palpitation, shortness of breath, loss of consciousness, diz ziness, headache, numbness, tingling, fever, chills, diarrhea or other constitutional symptoms. In the emergency room, patient was noted with lab hemoglobin 10.1, hematocrit 32.1, BUN 34, creatinine 5.73. Patient's CT abdomen showed moderately dilated fluid-filled small bowel loops in the mid abdomen likely due to anterior abdominal adhesions from prior abdominal surgery. Increased small bowel dilatation since prior exam consistent with early or partial small bowel obstruction. Surgical consultation was called from the emergency room who recommended KUB in a.m. ROS A 12 point review of system was assessed and is negative other than what is mentioned in the HPI PMH/Family/Social Past Medical History See HPI Medications Current Medications Ondansetron HCl (Zofran Inj) 4 mg BRIDGE ORDER PRN IV NAUSEA/VOMITING; Start 02/04/19 at 10:30; Stop 02/05/19 at 10:29 Acetaminophen (Tylenol Tab) 650 mg ER BRIDGE PRN PO .MILD PAIN 1-3 OR TEMP; Start 02/04/19 at 10:30; Stop 02/05/19 at 10:29 Coded Allergies: warfarin (Verified Allergy, Unknown, 02/04/19) Past Surgical History See HPI Past Surgical Hx: no surgical history Family History Significant Family History: no pertinent family hx Social History Denied history of alcohol, smoking or illicit drug use. Smoking Status: Never smoker Exam/Review of Systems Vital Signs Vitals Vital Signs Date Temp Pulse Resp B/P (MAP) Pulse Ox O2 O2 Flow FiO2 Time Delivery Rate 02/04/19 Nasal 2.0 11:53 Cannula 02/04/19 97.8 78 20 178/71 95 11:51 (106) VICKY JEAN NP Feb 04, 2019 14:42
[2019-02-04] MEDS ORDERED: GLUCAGON 1 MG INJ IM PRN (15:00)
[2019-02-04] MEDS ORDERED: GLUCOSE GEL 15 GRAM TUBE BUCCAL PRN (15:00)
[2019-02-04] MEDS ORDERED: NACL 0.9% 3 ML SYG IV SCH (15:00)
[2019-02-04] MEDS ORDERED: ACETAMINOPHEN 650 MG SUPP PR PRN (15:00)
[2019-02-04] MEDS ORDERED: GLUCOSE GEL 15 GRAM TUBE PO PRN ×2 (15:00)
[2019-02-04] MEDS ORDERED: DEXTROSE 50% 50 ML SYRINGE IV PRN ×2 (15:00)
[2019-02-04] MEDS ORDERED: IPRATROPIUM (NEB) 0.5 MG/2.5 ML AMP HHN PRN (15:00)
[2019-02-04] MEDS: FAMOTIDINE 20 MG INJ IV SCH (15:00)
[2019-02-04] MEDS ORDERED: LEVALBUTEROL (NEB) 1.25 MG/0.5 ML AMP HHN PRN (15:00)
[2019-02-04] MEDS: INSULIN ASPART [NOVOLOG] 3 ML PEN SC SCH ×2 (17:00→21:00)
[2019-02-04] MEDS: METOPROLOL 5 MG INJ IV SCH (18:00)
--- NOTE | 2019-02-04 18:20 | CONS ---
DATE OF ADMISSION: 02/04/2019 DATE OF CONSULTATION: 02/04/2019 TYPE OF CONSULTATION: Nephrology. REASON FOR CONSULTATION: End-stage renal disease. PHYSICIAN REQUESTING CONSULT: Jodi Ladd NP. HISTORY OF PRESENT ILLNESS: This is a 79-year-old female with a past medical history of end-stage re nal disease on hemodialysis Thursday, Thursday, Thursday (the patient's primary tube blower is Dr. David yeboah), history of dyslipidemia, hypertension, anemia, diabetes, and metabolic disorder, presents to [facility] with constipation, abdominal pain, and nausea. The patient upon arrival t o the emergency room had a CT scan of the abdomen, which showed moderately dilated fluid-filled small bowel loops in the mid abdomen. The patient was diagnosed with small-bowel obstruction, placed on I V fluids, had NG tube placed. Suction was admitted to med/surg for evaluation. In terms of patient's renal history, the patient's last hemodialysis was Thursday. She dialyzed at [facility], primary tube blower Dr. Mancilla. PAST MEDICAL HISTORY: See above. 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 PAST SURGICAL HISTORY: The patient has had multiple abdominal surgeries, status post AV fistula. FAMILY HISTORY: No family history of kidney disease. SOCIAL HISTORY: Does not drink, smoke, or do drugs. MEDICATIONS: The patient's medications have been reviewed. REVIEW OF SYSTEMS: A 14-point review of systems was conducted. Pertinent positives stated in HPI, o therwise negative. PHYSICAL EXAMINATION: VITAL SIGNS: Blood pressure is 154/67, respirations 20, pulse 67, temperature 97.9. HEENT: Head is normocephalic. NECK: Supple. HEART: Regular rate. LUNGS: Show diminished breath sounds at the base. ABDOMEN: Soft, nontender to palpation. EXTREMITIES: Negative for clubbing, cyanosis, no edema. DERMATOLOGIC: No rashes. MUSCULOSKELETAL: No joint effusion. NEUROLOGIC: No focal deficits. LABORATORY DATA: Has been reviewed. IMAGING STUDIES: Have been reviewed. ASSESSMENT AND PLAN: 1. End-stage renal disease. The patient is on dialysis Thursday, Thursday, Thursday, active arterioven ous fistula. Plan for hemodialysis today. We for dialyzed 3 hours 3 K bath, calcium 2.5, ultrafiltr ate as tolerated. 2. Anemia. Monitor hemoglobin and hematocrit levels. Will give Epogen as needed. 3. Mineral bone disorder. Monitor calcium and phosphorus levels. 4. Hypertension. Continue current blood pressure regimen. 5. Small-bowel obstruction. The patient is clinically improving. Continue to monitor. Follow up w [facility] general surgery. Continue conservative care. 6. Chronic obstructive pulmonary disease. We will continue nebulizers as needed. 7. Dyslipidemia. Continue statin therapy. 8. Diabetes. Continue insulin sliding scale. 9. History of atrial fibrillation. Continue medical management. Thank you, Jodi, for this interesting consult. It will be a pleasure to follow the patient with you throughout the hospital course. Dictated By: ALDAIR NAVARRO DO NR/NTS Conf#: [id number] DID#: [id number] CC: FABIANO EDMOND MD;*EndCC*
--- NOTE | 2019-02-04 19:49 | CONS ---
Assessment/Plan Assessment/Plan Assessment/Plan (Daily) Small bowel obstruction secondary to adhesions. Admit with NG tube IV hydration. Consultation Date/Type/Reason Admit Date/Time Feb 04, 2019 at 10:25 Date of Consultation: Feb 04, 2019 Type of Consult Surgical Reason for Consultation Small bowel obstruction Date/Time of Note DATE: 02/04/19 TIME: 19:46 Hx of Present Illness Patient with end-stage renal disease chronic abdominal pain, and multiple previous intra-abdominal operations developed abdominal pain day before admission to emergency room. Patient denied vomiting, admits nausea. Patient passed gas this morning. Last bowel movement was yesterday watery. Constitutional: poor po Eyes: no complaints ENT: no complaints Respiratory: cough Cardiovascular: edema Gastrointestinal: pain, diarrhea, nausea Genitourinary: no complaints Musculoskeletal: back pain, bone/joint pain, neck pain Skin: no complaints Neurologic: no complaints Endocrine: no complaints Lymphatic: no complaints Psychological: no complaints, nl mood/affect Past Medical History Home Meds Reported Medications Amlodipine Besylate* (Amlodipine Besylate*) 10 Mg Tablet, 10 MG PO DAILY, #30 TAB 02/04/19 Metoprolol Succinate* (Toprol XL*) 50 Mg Tab.er.24h, 50 MG PO BID, #30 TAB 02/04/19 Trazodone Hcl* (Desyrel*) 50 Mg Tab, 50 MG PO QHS, #30 TAB 02/04/19 Pantoprazole* (Pantoprazole*) 40 Mg Tablet.dr, 40 MG PO AC BREAKFAST, TAB 02/04/19 Glimepiride* (Glimepiride*) 2 Mg Tablet, 1 MG PO WITH BREAKFAST, TAB 02/04/19 Diltiazem Hcl* (Diltiazem XT) 240 Mg Capsule.er, 240 MG PO DAILY, #30 CAP 02/04/19 Bumetanide* (Bumetanide*) 1 Mg Tablet, 1 MG PO BID, TAB 02/04/19 Apixaban* (Eliquis*) 2.5 Mg Tablet, 2.5 MG PO BID, TAB 02/04/19 Sucralfate* (Carafate*) 1 Gm Tab, 2 GM PO AC MEALS AND BEDTIME, TAB 02/04/19 Atorvastatin Calcium* (Atorvastatin Calcium*) 20 Mg Tablet, 20 MG PO QHS, #30 TAB 02/04/19 Budesonide-Formoterol Fumarate* (Symbicort*) 160-4.5 Hfa.aer.ad, 2 PUFF INHALATION BID, #1 EACH 02/04/19 Hydralazine Hcl* (Hydralazine Hcl*) 25 Mg Tab, 25 MG PO BID, #60 TAB 02/04/19 Discontinued Reported Medications Sucralfate* (Carafate*) 1 Gm Tab, 1 TAB ORAL QID 01/12/19 Ranitidine Hcl* (Ranitidine Hcl*) 300 Mg Tablet, 1 TAB ORAL DAILY 01/12/19 Hydralazine Hcl* (Hydralazine Hcl*) 25 Mg Tab, 1 TAB ORAL BID PRN for HTN 01/12/19 Atorvastatin Calcium (Atorvastatin Calcium) 20 Mg Tablet, 1 TAB ORAL QHS 01/12/19 Ibandronate Sodium* (Boniva*) 150 Mg Tablet, 150 MG PO Q7D, TAB 05/07/16 Trazodone Hcl* (Trazodone Hcl*) 50 Mg Tablet, 50 MG PO QHS, #30 TAB 05/07/16 Bumetanide* (Bumetanide*) 1 Mg Tablet, 1 MG PO BID, TAB 05/07/16 Glimepiride* (Glimepiride*) 2 Mg Tablet, 2 MG PO WITH BREAKFAST DINNE, TAB 05/07/16 Pioglitazone Hcl* (Actos*) 15 Mg Tablet, 15 MG PO DAILY, #30 TAB 05/07/16 Discontinued Scripts Apixaban* (Eliquis*) 2.5 Mg Tablet, 5 MG PO BID, #60 TAB 1 Refill Prov:ULYSSES LOVE MD 05/09/16 Metoprolol Tartrate* (Lopressor*) 25 Mg Tab, 12.5 MG PO BID, #60 TAB Prov:ULYSSES LOVE MD 05/09/16 Medications Current Medications Fluticasone/ Vilanterol (Breo Ellipta 200-25 Mcg Inh) 1 inh DAILY INH ; Start 02/05/19 at 09:00 Diagnostic Test (Pha) (Accu-Chek) 1 ea 02 XX ; Start 02/05/19 at 02:00 Insulin Aspart (Novolog Insulin Pen) NOVOLOG *MILD* ALGORI... Q4 SC ; Start 02/04/19 at 17:00 Sodium Chloride 1,000 ml @ 40 mls/hr Q24H IV ; Start 02/04/19 at 15:00 IV Flush (NS 3 ml) 3 ml PER PROTOCOL IV ; Start 02/04/19 at 15:00 Ondansetron HCl (Zofran Inj) 4 mg Q6H PRN IV NAUSEA/VOMITING; Start 02/04/19 at 15:00 Acetaminophen (Tylenol Supp) 650 mg Q6H PRN [place] .PAIN 1-3 OR TEMP; Start 02/04/19 at 15:00 Morphine Sulfate (morphine) 2 mg Q4H PRN IV .SEVERE PAIN 7-10; Start 02/04/19 at 15:00 Famotidine (Pepcid Iv) 20 mg DAILY IV ; Start 02/04/19 at 15:00 Levalbuterol (Xopenex Neb) 1.25 mg Q4H RESP THERAPY PRN HHN spb/wheezing; Start 02/04/19 at 15:00 Ipratropium [place] (Atrovent 0.02% (Neb)) 0.5 mg Q4H RESP THERAPY PRN HHN wheezing/sob; Start 02/04/19 at 15:00 Miscellaneous Information 1 ea NOTE XX ; Start 02/04/19 at 15:00 Glucose (Glutose) 15 gm Q15M PRN PO DECREASED GLUCOSE; Start 02/04/19 at 15:00 Glucose (Glutose) 22.5 gm Q15M PRN PO DECREASED GLUCOSE; Start 02/04/19 at 15:00 Dextrose (D50w Syringe) 25 ml Q15M PRN IV DECREASED GLUCOSE; Start 02/04/19 at 15:00 Dextrose (D50w Syringe) 50 ml Q15M PRN IV DECREASED GLUCOSE; Start 02/04/19 at 15:00 Glucagon (Glucagen) 1 mg Q15M PRN IM DECREASED GLUCOSE; Start 02/04/19 at 15:00 Glucose (Glutose) 15 gm Q15M PRN BUCCAL DECREASED GLUCOSE; Start 02/04/19 at 15:00 Metoprolol Tartrate (Lopressor) 5 mg Q6 IV ; Start 02/04/19 at 18:00 Hydralazine HCl (Apresoline) 10 mg Q6H PRN IV sbp>160; Start 02/04/19 at 15:30 Allergies: Coded Allergies: warfarin (Verified Allergy, Unknown, 02/04/19) Past Surgical History Past Surgical Hx: no surgical history Social History Smoking Status: Never smoker Exam/Review of Systems Exam Vitals Vital Signs Date Temp Pulse Resp B/P (MAP) Pulse Ox O2 O2 Flow FiO2 Time Delivery Rate 02/04/19 Nasal 2.0 17:30 Cannula 02/04/19 74 20 122/76 98 17:25 (91) 02/04/19 98.0 17:22 Constitutional: alert, oriented, well developed Psych: no complaints, nl mood/affect Head: normocephalic, atraumatic Eyes: nl conjunctiva, EOMI, nl lids, nl sclera, PERRL ENMT: nl external ears & nose, nl lips & teeth, nl nasal mucosa & septum Neck: supple, non-tender Respiratory: clear to auscultation, normal air movement Cardiovascular: regular rate and rhythm, nl pulses Gastrointestinal: soft, surgical scars (Midline laparotomy surgical scar), other (There is a tenderness to left upper quadrant. No evidence of rebound.) Musculoskeletal: nl extremities to inspection, nl gait and stance Extremities: normal pulses Neurological: HEALTH INSURANCE AGENT II-XII intact, nl mental status, nl speech, nl strength Skin: nl turgor; No rash or lesions Lymph: nl lymph nodes Results Result Diagram: 02/04/19 0815 02/04/19 0815 Results 24hrs Laboratory Tests Test 02/04/19 08:15 02/04/19 08:19 02/04/19 13:50 02/04/19 18:22 White Blood Count 7.5 # Red Blood Count 3.42 L Hemoglobin 10.1 L Hematocrit 32.1 L Mean Corpuscular Volume 93.9 Mean Corpuscular 29.5 Hemoglobin Mean Corpuscular 31.5 L Hemoglobin Concent Red Cell Distribution 18.1 H Width Platelet Count 210 Mean Platelet Volume 10.8 H Immature Granulocytes % 0.300 Neutrophils % 78.3 H Lymphocytes % 8.7 L Monocytes % 10.2 Eosinophils % 2.1 Basophils % 0.4 Nucleated Red Blood 0.0 Cells % Immature Granulocytes # 0.020 Neutrophils # 5.9 Lymphocytes # 0.7 L Monocytes # 0.8 Eosinophils # 0.2 Basophils # 0.0 Nucleated Red Blood 0.0 Cells # Prothrombin Time 14.8 Prothrombin Time Ratio 1.2 INR International 1.15 Normalized Ratio Sodium Level 140 Potassium Level 4.2 Chloride Level 94 L Carbon Dioxide Level 34 H Anion Gap 12 Blood Urea Nitrogen 34 H Creatinine 5.73 H Est Glomerular Filtrat Rate mL/min Glucose Level 118 Calcium Level 9.7 Total Bilirubin 0.4 Direct Bilirubin 0.00 Indirect Bilirubin 0.4 Aspartate Amino 21 Transf (AST/SGOT) Alanine 21 Aminotransferase (ALT/SG PT) Alkaline Phosphatase 183 H Troponin I < 0.012 Total Protein 7.7 Albumin 4.2 Globulin 3.50 H Albumin/Globulin Ratio 1.20 Lipase < 10 L POC Venous Lactate 1.0 Bedside Glucose 129 96 Medications Medication Current Medications Fluticasone/ Vilanterol (Breo Ellipta 200-25 Mcg Inh) 1 inh DAILY INH ; Start 02/05/19 at 09:00 Diagnostic Test (Pha) (Accu-Chek) 1 ea 02 XX ; Start 02/05/19 at 02:00 Insulin Aspart (Novolog Insulin Pen) NOVOLOG *MILD* ALGORI... Q4 SC ; Start 02/04/19 at 17:00 Sodium Chloride 1,000 ml @ 40 mls/hr Q24H IV ; Start 02/04/19 at 15:00 IV Flush (NS 3 ml) 3 ml PER PROTOCOL IV ; Start 02/04/19 at 15:00 Ondansetron HCl (Zofran Inj) 4 mg Q6H PRN IV NAUSEA/VOMITING; Start 02/04/19 at 15:00 Acetaminophen (Tylenol Supp) 650 mg Q6H PRN NV .PAIN 1-3 OR TEMP; Start 02/04/19 at 15:00 Morphine Sulfate (morphine) 2 mg Q4H PRN IV .SEVERE PAIN 7-10; Start 02/04/19 at 15:00 Famotidine (Pepcid Iv) 20 mg DAILY IV ; Start 02/04/19 at 15:00 Levalbuterol (Xopenex Neb) 1.25 mg Q4H RESP THERAPY PRN HHN spb/wheezing; Start 02/04/19 at 15:00 Ipratropium [place] (Atrovent 0.02% (Neb)) 0.5 mg Q4H RESP THERAPY PRN HHN wheezing/sob; Start 02/04/19 at 15:00 Miscellaneous Information 1 ea NOTE XX ; Start 02/04/19 at 15:00 Glucose (Glutose) 15 gm Q15M PRN PO DECREASED GLUCOSE; Start 02/04/19 at 15:00 Glucose (Glutose) 22.5 gm Q15M PRN PO DECREASED GLUCOSE; Start 02/04/19 at 15:00 Dextrose (D50w Syringe) 25 ml Q15M PRN IV DECREASED GLUCOSE; Start 02/04/19 at 15:00 Dextrose (D50w Syringe) 50 ml Q15M PRN IV DECREASED GLUCOSE; Start 02/04/19 at 15:00 Glucagon (Glucagen) 1 mg Q15M PRN IM DECREASED GLUCOSE; Start 02/04/19 at 15:00 Glucose (Glutose) 15 gm Q15M PRN BUCCAL DECREASED GLUCOSE; Start 02/04/19 at 15:00 Metoprolol Tartrate (Lopressor) 5 mg Q6 IV ; Start 02/04/19 at 18:00 Hydralazine HCl (Apresoline) 10 mg Q6H PRN IV sbp>160; Start 02/04/19 at 15:30 IVY WANG MD Feb 04, 2019 19:49
[2019-02-04] MEDS: SOD CHLORIDE 0.9% 1,000 ML IV SCH (21:41)
[2019-02-05] VITALS (8 sets, daily range): BP systolic 136–174; BP diastolic 65–89; PULSE 93–116; RESP 17–20
[2019-02-05] MEDS: INSULIN ASPART [NOVOLOG] 3 ML PEN SC SCH ×6 (01:00→23:57)
[2019-02-05] MEDS: METOPROLOL 5 MG INJ IV SCH ×3 (01:03→12:00)
[2019-02-05] MEDS: morphine 2 MG INJ IV PRN ×2 (01:56→12:54)
[2019-02-05] MEDS: ACCU-CHEK XX SCH (02:00)
[2019-02-05] MEDS: hydrALAzine 20 MG INJ IV PRN ×2 (03:36→12:54)
[2019-02-05] MEDS ORDERED: LABETALOL HCL 20MG INJ IV PRN (09:00)
[2019-02-05] MEDS: FLUTICASONE/VILANTEROL 200-25 INH DEVICE INH SCH (09:02)
[2019-02-05] MEDS: FAMOTIDINE 20 MG INJ IV SCH (09:02)
--- NOTE | 2019-02-05 09:09 | PN ---
DATE: 02/05/2019 SUBJECTIVE: The patient is stable. The patient was transferred to telemetry yesterday. The patient 's NG tube remains in place. The patient had hemodialysis yesterday, tolerated well. OBJECTIVE: VITAL SIGNS: Blood pressure is 152/71, respiration 18, pulse 107, temperature 99.3. HEENT: Head is normocephalic. NECK: Supple. HEART: Regular rate. LUNGS: Show diminished breath sounds at the base. ABDOMEN: Soft, nontender to palpation without rebound or guarding. EXTREMITIES: Negative for clubbing, cyanosis, no edema. DERMATOLOGIC: No rashes. MUSCULOSKELETAL: No joint effusion. NEUROLOGIC: No change in exam. MEDICATIONS: Reviewed. LABORATORY DATA: Has been reviewed. IMAGING: Has been reviewed. ASSESSMENT AND PLAN: 1. End-stage renal disease. The patient had hemodialysis yesterday, tolerated well. Anticipate nex t dialysis in 1 to 2 days. 2. Anemia. Monitor hemoglobin and hematocrit levels. Will give Epogen as needed. 3. Mineral bone disorder. Monitor calcium and phosphorus levels. 4. Hypertension. Continue current blood pressure regimen. 5. Small-bowel obstruction. The patient has been seen by general surgery. NG tube is in place. Co ntinue to monitor. Continue conservative management. 6. History of chronic obstructive pulmonary disease. Continue nebulizers as needed. 7. Dyslipidemia. Continue statin therapy. 8. Diabetes. Continue current insulin regimen. 9. History of atrial fibrillation. Dictated By: ALDAIR NAVARRO DO NR/NTS Conf#: [id number] DID#: [id number] CC: FABIANO EDMOND MD;*EndCC*
--- NOTE | 2019-02-05 11:04 | RADRPT ---
Vent Rate: 70 bpm RR Interval: 856 msec VT Interval: [id number] msec QRS Duration: 116 msec QT Interval: 438 msec QTC Interval: 473 msec P-R-T [place]: [id number] - -46 - 87 degrees Atrial fibrillation...? atrial activity LAD, consider left anterior fascicular block...axis(240,-40), S>R II III aVF Anterior infarct, old...Q >40mS, abnormal ST-T, V2-V5 Electronically Signed By: Nithya Barahona
--- NOTE | 2019-02-05 12:16 | PN ---
Date/Time of Note Date/Time of Note DATE: 02/05/19 TIME: 12:06 Objective Vitals Vital Signs Date Temp Pulse Resp B/P (MAP) Pulse Ox O2 O2 Flow FiO2 Time Delivery Rate 02/05/19 98.1 98 17 174/86 94 11:18 (115) 02/05/19 Nasal 2.0 08:12 Cannula Intake and Output 02/04/19 02/04/19 02/05/19 1515:00 23:00 07:00 IntakeIntake Total 0 ml OutputOutput Total 2600 ml BalanceBalance -2600 ml 0 ml Results Result Diagram: 02/05/1961202/05/19 06 Medications Medications Current Medications Fluticasone/ Vilanterol (Breo Ellipta 200-25 Mcg Inh) 1 inh DAILY INH Last administered on 02/05/19at 09:02; Admin Dose 1 INH; Start 02/05/19 at 09:00 Diagnostic Test (Pha) (Accu-Chek) 1 ea 02 XX ; Start 02/05/19 at 02:00 Insulin Aspart (Novolog Insulin Pen) NOVOLOG *MILD* ALGORI... Q4 SC ; Start 02/04/19 at 17:00 Sodium Chloride 1,000 ml @ 40 mls/hr Q24H IV Last administered on 02/04/19at 21:41; Admin Dose 40 MLS/HR; Start 02/04/19 at 15:00 IV Flush (NS 3 ml) 3 ml PER PROTOCOL IV ; Start 02/04/19 at 15:00 Ondansetron HCl (Zofran Inj) 4 mg Q6H PRN IV NAUSEA/VOMITING; Start 02/04/19 at 15:00 Acetaminophen (Tylenol Supp) 650 mg Q6H PRN [place] .PAIN 1-3 OR TEMP; Start 02/04/19 at 15:00 Morphine Sulfate (morphine) 2 mg Q4H PRN IV .SEVERE PAIN 7-10 Last administered on 02/05/19at 01:56; Admin Dose 2 MG; Start 02/04/19 at 15:00 Famotidine (Pepcid Iv) 20 mg DAILY IV Last administered on 02/05/19at 09:02; Admin Dose 20 MG; Start 02/04/19 at 15:00 Levalbuterol (Xopenex Neb) 1.25 mg Q4H RESP THERAPY PRN HHN spb/wheezing; Start 02/04/19 at 15:00 Ipratropium [place] (Atrovent 0.02% (Neb)) 0.5 mg Q4H RESP THERAPY PRN HHN wheezing/sob; Start 02/04/19 at 15:00 Miscellaneous Information 1 ea NOTE XX ; Start 02/04/19 at 15:00 Glucose (Glutose) 15 gm Q15M PRN PO DECREASED GLUCOSE; Start 02/04/19 at 15:00 Glucose (Glutose) 22.5 gm Q15M PRN PO DECREASED GLUCOSE; Start 02/04/19 at 15:00 Dextrose (D50w Syringe) 25 ml Q15M PRN IV DECREASED GLUCOSE; Start 02/04/19 at 15:00 Dextrose (D50w Syringe) 50 ml Q15M PRN IV DECREASED GLUCOSE; Start 02/04/19 at 15:00 Glucagon (Glucagen) 1 mg Q15M PRN IM DECREASED GLUCOSE; Start 02/04/19 at 15:00 Glucose (Glutose) 15 gm Q15M PRN BUCCAL DECREASED GLUCOSE; Start 02/04/19 at 15:00 Metoprolol Tartrate (Lopressor) 5 mg Q6 IV Last administered on 02/05/19at 12:00; Admin Dose 5 MG; Start 02/04/19 at 18:00 Hydralazine HCl (Apresoline) 10 mg Q6H PRN IV sbp>160 Last administered on 02/05/19at 03:36; Admin Dose 10 MG; Start 02/04/19 at 15:30 Labetalol HCl (Labetalol) 10 mg Q4H PRN IV sbp >160; Start 02/05/19 at 09:00 VTE Prophylaxis Risk score (from Nsg)>0 risk: 4 SCD applied (from Ns): Yes Lines/Catheters IV Catheter Type: Jackson in Place: No Assessment/Plan Hospital Course Subjective Patient's abdominal pain has resolved, only complains of nose pain at NG tube site. Goes in and out of RVR Objective Physical exam General: Patient is laying in bed and answers questions appropriately Mentation: Patient is alert and oriented 4, Head: Normocephalic atraumatic Eyes: EOMI, pupils reactive to light Neck: Supple, nontender, midline Respiratory: Clear to auscultation bilaterally Cardiovascular: regular rate, no obvious murmurs Gastrointestinal: non-tender to palpation, bowel sounds heard. Neurological: Moves all extremities spontaneously Skin: No new skin lesions ASSESSMENT AND PLAN: 79 yo obese F w/ ESRD on hemodialysis MWF, left AV fistula, atrial fibrillation,copd, diabetes, hypertension, hyperlipidemia, prior abdominal surgeries, was brought into the emergency room with severe abdominal pain associated with multiple episodes of nonbilious/nonbloody vomiting and inability to have a bowel movement x24 hours duration,found to have partial SBO.. Partial small bowel obstruction, recurrent -Symptoms improving. -Patient symptoms are resolving significantly, possible DC NG tube and start on clears if okay with general surgeon ESRD/HD MWF -Access: Left AV fistula -Nephrology consultation -HD per nephro team Anemia of ESRD -H&H fairly stable. -Epogen if needed per nephro team. DMII -A1c. Since patient will be n.p.o., we will put her on every 4 sliding scale insulin. Hypertension -Treat with as needed medications, -Resume home meds when able A. fib rvr -HR intermittent RVR -resume home meds as soon as possible -cardiology consulted -IV metoprolol until patient able to tolerate PO COPD -Resume home medications Dyslipidemia -Resume statin when stable for p.o. DVT prophylaxis: Eliquis when able, scd in the meantime FABIANO EDMOND Feb 05, 2019 12:16
--- NOTE | 2019-02-05 13:09 | PN ---
Date/Time of Note Date/Time of Note DATE: 02/05/19 TIME: 13:09 Assessment/Plan Lines/Catheters IV Catheter Type (from Nrs): Jackson in Place (from Nrsg): No Subjective 24 Hr Interval Summary Pt passed gas, had BM. NG tube can be removed and clears started. Exam/Review of Systems Vital Signs Vitals Vital Signs Date Temp Pulse Resp B/P (MAP) Pulse Ox O2 O2 Flow FiO2 Time Delivery Rate 02/05/19 98.1 98 17 174/86 94 11:18 (115) 02/05/19 Nasal 2.0 08:12 Cannula Intake and Output 02/04/19 02/04/19 02/05/19 1515:00 23:00 07:00 IntakeIntake Total 0 ml OutputOutput Total 2600 ml BalanceBalance -2600 ml 0 ml Results Result Diagram: 02/05/19 0613 02/05/19 0613 IVY WANG MD Feb 05, 2019 13:09
--- NOTE | 2019-02-05 13:16 | CONS ---
Consultation Date/Type/Reason Admit Date/Time Feb 04, 2019 at 10:25 Type of Consult Cardiology Date/Time of Note DATE: 02/05/19 TIME: 13:15 Hx of Present Illness 79 yo with rafael thompson - now ok to take po meds - will restart Eliquis and try to Rx with amio - discussed with Dr. Peña - no surgery planned # [id number] Past Medical History Home Meds Reported Medications Amlodipine Besylate* (Amlodipine Besylate*) 10 Mg Tablet, 10 MG PO DAILY, #30 TAB 02/04/19 Metoprolol Succinate* (Toprol XL*) 50 Mg Tab.er.24h, 50 MG PO BID, #30 TAB 02/04/19 Trazodone Hcl* (Desyrel*) 50 Mg Tab, 50 MG PO QHS, #30 TAB 02/04/19 Pantoprazole* (Pantoprazole*) 40 Mg Tablet.dr, 40 MG PO AC BREAKFAST, TAB 02/04/19 Glimepiride* (Glimepiride*) 2 Mg Tablet, 1 MG PO WITH BREAKFAST, TAB 02/04/19 Diltiazem Hcl* (Diltiazem XT) 240 Mg Capsule.er, 240 MG PO DAILY, #30 CAP 02/04/19 Bumetanide* (Bumetanide*) 1 Mg Tablet, 1 MG PO BID, TAB 02/04/19 Apixaban* (Eliquis*) 2.5 Mg Tablet, 2.5 MG PO BID, TAB 02/04/19 Sucralfate* (Carafate*) 1 Gm Tab, 2 GM PO AC MEALS AND BEDTIME, TAB 02/04/19 Atorvastatin Calcium* (Atorvastatin Calcium*) 20 Mg Tablet, 20 MG PO QHS, #30 TAB 02/04/19 Budesonide-Formoterol Fumarate* (Symbicort*) 160-4.5 Hfa.aer.ad, 2 PUFF INHALATION BID, #1 EACH 02/04/19 Hydralazine Hcl* (Hydralazine Hcl*) 25 Mg Tab, 25 MG PO BID, #60 TAB 02/04/19 Discontinued Reported Medications Sucralfate* (Carafate*) 1 Gm Tab, 1 TAB ORAL QID 01/12/19 Ranitidine Hcl* (Ranitidine Hcl*) 300 Mg Tablet, 1 TAB ORAL DAILY 01/12/19 Hydralazine Hcl* (Hydralazine Hcl*) 25 Mg Tab, 1 TAB ORAL BID PRN for HTN 01/12/19 Atorvastatin Calcium (Atorvastatin Calcium) 20 Mg Tablet, 1 TAB ORAL QHS 01/12/19 Ibandronate Sodium* (Boniva*) 150 Mg Tablet, 150 MG PO Q7D, TAB 05/07/16 Trazodone Hcl* (Trazodone Hcl*) 50 Mg Tablet, 50 MG PO QHS, #30 TAB 05/07/16 Bumetanide* (Bumetanide*) 1 Mg Tablet, 1 MG PO BID, TAB 05/07/16 Glimepiride* (Glimepiride*) 2 Mg Tablet, 2 MG PO WITH BREAKFAST DINNE, TAB 05/07/16 Pioglitazone Hcl* (Actos*) 15 Mg Tablet, 15 MG PO DAILY, #30 TAB 05/07/16 Discontinued Scripts Apixaban* (Eliquis*) 2.5 Mg Tablet, 5 MG PO BID, #60 TAB 1 Refill Prov:ULYSSES LOVE MD 05/09/16 Metoprolol Tartrate* (Lopressor*) 25 Mg Tab, 12.5 MG PO BID, #60 TAB Prov:ULYSSES LOVE MD 05/09/16 Medications Current Medications Fluticasone/ Vilanterol (Breo Ellipta 200-25 Mcg Inh) 1 inh DAILY INH Last admi nistered on 02/05/19at 09:02; Admin Dose 1 INH; Start 02/05/19 at 09:00 Diagnostic Test (Pha) (Accu-Chek) 1 XX ; Start 02/05/19 at 02:00 Insulin Aspart (Novolog Insulin Pen) NOVOLOG *MILD* ALGORI... Q4 SC ; Start 02/04/19 at 17:00 Sodium Chloride 1,000 ml @ 40 mls/hr Q24H IV Last administered on 02/04/19at 21:41; Admin Dose 40 MLS/HR; Start 02/04/19 at 15:00 IV Flush (NS 3 ml) 3 ml PER PROTOCOL IV ; Start 02/04/19 at 15:00 Ondansetron HCl (Zofran Inj) 4 mg Q6H PRN IV NAUSEA/VOMITING; Start 02/04/19 at 15:00 Acetaminophen (Tylenol Supp) 650 mg Q6H PRN NE .PAIN 1-3 OR TEMP; Start 02/04/19 at 15:00 Morphine Sulfate (morphine) 2 mg Q4H PRN IV .SEVERE PAIN 7-10 Last administered on 02/05/19at 12:54; Admin Dose 2 MG; Start 02/04/19 at 15:00 Famotidine (Pepcid Iv) 20 mg DAILY IV Last administered on 02/05/19at 09:02; Admin Dose 20 MG; Start 02/04/19 at 15:00 Levalbuterol (Xopenex Neb) 1.25 mg Q4H RESP THERAPY PRN HHN spb/wheezing; Start 02/04/19 at 15:00 Ipratropium [place] (Atrovent 0.02% (Neb)) 0.5 mg Q4H RESP THERAPY PRN HHN wheezing/sob; Start 02/04/19 at 15:00 Miscellaneous Information 1 ea NOTE XX ; Start 02/04/19 at 15:00 Glucose (Glutose) 15 gm Q15M PRN PO DECREASED GLUCOSE; Start 02/04/19 at 15:00 Glucose (Glutose) 22.5 gm Q15M PRN PO DECREASED GLUCOSE; Start 02/04/19 at 15:00 Dextrose (D50w Syringe) 25 ml Q15M PRN IV DECREASED GLUCOSE; Start 02/04/19 at 15:00 Dextrose (D50w Syringe) 50 ml Q15M PRN IV DECREASED GLUCOSE; Start 02/04/19 at 15:00 Glucagon (Glucagen) 1 mg Q15M PRN IM DECREASED GLUCOSE; Start 02/04/19 at 15:00 Glucose (Glutose) 15 gm Q15M PRN BUCCAL DECREASED GLUCOSE; Start 02/04/19 at 15:00 Metoprolol Tartrate (Lopressor) 5 mg Q6 IV Last administered on 02/05/19at 12:00; Admin Dose 5 MG; Start 02/04/19 at 18:00 Hydralazine HCl (Apresoline) 10 mg Q6H PRN IV sbp>160 Last administered on 02/05/19at 12:54; Admin Dose 10 MG; Start 02/04/19 at 15:30 Labetalol HCl (Labetalol) 10 mg Q4H PRN IV sbp >160; Start 02/05/19 at 09:00 Clonidine HCl (Catapres-Tts 1 Patch) 1 patch ONCE ONCE TRANSDERM ; Start 02/05/19 at 13:30; Stop 02/05/19 at 13:31; Status UNV Allergies: Coded Allergies: warfarin (Verified Allergy, Unknown, 02/04/19) Past Surgical History Past Surgical Hx: no surgical history Social History Smoking Status: Never smoker Exam/Review of Systems Vital Signs Vitals Vital Signs Date Temp Pulse Resp B/P (MAP) Pulse Ox O2 O2 Flow FiO2 Time Delivery Rate 02/05/19 98.1 98 17 174/86 94 11:18 (115) 02/05/19 Nasal 2.0 08:12 Cannula Intake and Output 02/04/19 02/04/19 02/05/19 1515:00 23:00 07:00 IntakeIntake Total 0 ml OutputOutput Total 2600 ml BalanceBalance -2600 ml 0 ml Labs Result Diagram: 02/05/1913 02/05/19 0613 Results 24hrs Laboratory Tests Test 02/04/19 13:50 02/04/19 18:22 02/04/19 21:39 02/05/19 00:59 Bedside Glucose 129 96 82 86 Test 02/05/19 05:39 02/05/19 06:13 02/05/19 08:08 02/05/19 11:59 Bedside Glucose 92 89 80 White Blood Count 5.9 # Red Blood Count 3.24 L Hemoglobin 9.8 L Hematocrit 30.9 L Mean Corpuscular Volume 95.4 Mean Corpuscular 30.2 Hemoglobin Mean Corpuscular 31.7 L Hemoglobin Concent Red Cell Distribution 17.7 H Width Platelet Count 192 Mean Platelet Volume 11.0 H Immature Granulocytes % 0.200 Neutrophils % 79.6 H Lymphocytes % 8.9 L Monocytes % 8.9 Eosinophils % 1.9 Basophils % 0.5 Nucleated Red Blood 0.0 Cells % Immature Granulocytes # 0.010 Neutrophils # 4.7 Lymphocytes # 0.5 L Monocytes # 0.5 Eosinophils # 0.1 Basophils # 0.0 Nucleated Red Blood 0.0 Cells # Sodium Level 140 Potassium Level 4.1 Chloride Level 100 Carbon Dioxide Level 30 Anion Gap 10 Blood Urea Nitrogen 18 # Creatinine 3.86 #H Est Glomerular Filtrat Rate mL/min Glucose Level 92 Hemoglobin A1c 5.4 Calcium Level 9.0 Phosphorus Level 3.3 Magnesium Level 2.1 Total Bilirubin 0.5 Direct Bilirubin 0.00 Indirect Bilirubin 0.5 Aspartate Amino 25 Transf (AST/SGOT) Alanine 27 Aminotransferase (ALT/SG PT) Alkaline Phosphatase 174 H Total Protein 7.1 Albumin 3.8 Globulin 3.30 H Albumin/Globulin Ratio 1.15 Triglycerides Level 65 Cholesterol Level 71 L LDL Cholesterol, 24 Calculated HDL Cholesterol 34 Cholesterol/HDL Ratio 2.0 Medications Medications Current Medications Fluticasone/ Vilanterol (Breo Ellipta 200-25 Mcg Inh) 1 inh DAILY INH Last administered on 02/05/19at 09:02; Admin Dose 1 INH; Start 02/05/19 at 09:00 Diagnostic Test (Pha) (Accu-Chek) 1 ea 02 XX ; Start 02/05/19 at 02:00 Insulin Aspart (Novolog Insulin Pen) NOVOLOG *MILD* ALGORI... Q4 SC ; Start 02/04/19 at 17:00 Sodium Chloride 1,000 ml @ 40 mls/hr Q24H IV Last administered on 02/04/19at 21:41; Admin Dose 40 MLS/HR; Start 02/04/19 at 15:00 IV Flush (NS 3 ml) 3 ml PER PROTOCOL IV ; Start 02/04/19 at 15:00 Ondansetron HCl (Zofran Inj) 4 mg Q6H PRN IV NAUSEA/VOMITING; Start 02/04/19 at 15:00 Acetaminophen (Tylenol Supp) 650 mg Q6H PRN NE .PAIN 1-3 OR TEMP; Start 02/04/19 at 15:00 Morphine Sulfate (morphine) 2 mg Q4H PRN IV .SEVERE PAIN 7-10 Last administered on 02/05/19at 12:54; Admin Dose 2 MG; Start 02/04/19 at 15:00 Famotidine (Pepcid Iv) 20 mg DAILY IV Last administered on 02/05/19at 09:02; Admin Dose 20 MG; Start 02/04/19 at 15:00 Levalbuterol (Xopenex Neb) 1.25 mg Q4H RESP THERAPY PRN HHN spb/wheezing; Start 02/04/19 at 15:00 Ipratropium [place] (Atrovent 0.02% (Neb)) 0.5 mg Q4H RESP THERAPY PRN HHN wheezing/sob; Start 02/04/19 at 15:00 Miscellaneous Information 1 ea NOTE XX ; Start 02/04/19 at 15:00 Glucose (Glutose) 15 gm Q15M PRN PO DECREASED GLUCOSE; Start 02/04/19 at 15:00 Glucose (Glutose) 22.5 gm Q15M PRN PO DECREASED GLUCOSE; Start 02/04/19 at 15:00 Dextrose (D50w Syringe) 25 ml Q15M PRN IV DECREASED GLUCOSE; Start 02/04/19 at 15:00 Dextrose (D50w Syringe) 50 ml Q15M PRN IV DECREASED GLUCOSE; Start 02/04/19 at 15:00 Glucagon (Glucagen) 1 mg Q15M PRN IM DECREASED GLUCOSE; Start 02/04/19 at 15:00 Glucose (Glutose) 15 gm Q15M PRN BUCCAL DECREASED GLUCOSE; Start 02/04/19 at 15:00 Metoprolol Tartrate (Lopressor) 5 mg Q6 IV Last administered on 02/05/19at 12:00; Admin Dose 5 MG; Start 02/04/19 at 18:00 Hydralazine HCl (Apresoline) 10 mg Q6H PRN IV sbp>160 Last administered on 02/05/19at 12:54; Admin Dose 10 MG; Start 02/04/19 at 15:30 Labetalol HCl (Labetalol) 10 mg Q4H PRN IV sbp >160; Start 02/05/19 at 09:00 Clonidine HCl (Catapres-Tts 1 Patch) 1 patch ONCE ONCE TRANSDERM ; Start 02/05/19 at 13:30; Stop 02/05/19 at 13:31; Status HANS DOMINIQUE MD Feb 05, 2019 13:16
[2019-02-05] MEDS ORDERED: CLONIDINE 0.1 MG/24 HR PATCH TRANSDERM ONE (13:30)
[2019-02-05] MEDS: SOD CHLORIDE 0.9% 1,000 ML IV SCH ×2 (15:00→23:45)
[2019-02-05] MEDS: BUMETANIDE 1 MG TAB PO SCH (18:33)
[2019-02-05] MEDS: METOPROLOL (XL) 50 MG TAB PO SCH (18:34)
[2019-02-05] MEDS: traZODone 50 MG TAB PO SCH (20:55)
[2019-02-05] MEDS: ATORVASTATIN 20 MG TAB PO SCH (20:56)
[2019-02-05] MEDS: AMIODARONE 200 MG TAB PO SCH (20:56)
[2019-02-05] MEDS: APIXABAN 5 MG TABLET PO SCH (20:56)
[2019-02-05] MEDS ORDERED: METOPROLOL (XL) 50 MG TAB PO SCH (21:00)
[2019-02-06] VITALS: BP 137/80; PULSE 111; RESP 19
[2019-02-06] MEDS: ACCU-CHEK XX SCH (02:00)
[2019-02-06 05:00] VITALS: BP 151/76; PULSE 92; RESP 20
[2019-02-06] MEDS: BUMETANIDE 1 MG TAB PO SCH ×2 (05:40→17:22)
[2019-02-06] MEDS: INSULIN ASPART [NOVOLOG] 3 ML PEN SC SCH ×4 (05:41→23:40)
[2019-02-06 07:27] VITALS: BP 153/78; PULSE 108; RESP 18
[2019-02-06] MEDS: PANTOPRAZOLE (EC) 40 MG TAB PO SCH (07:59)
[2019-02-06] MEDS: FLUTICASONE/VILANTEROL 200-25 INH DEVICE INH SCH (08:48)
[2019-02-06] MEDS: DILTIAZEM (CD) 240 MG CAP PO SCH (08:48)
[2019-02-06] MEDS: AMIODARONE 200 MG TAB PO SCH ×3 (08:49→20:52)
[2019-02-06] MEDS: FAMOTIDINE 20 MG INJ IV SCH (08:49)
[2019-02-06] MEDS: AMLODIPINE 10 MG TAB PO SCH (08:49)
[2019-02-06] MEDS: APIXABAN 5 MG TABLET PO SCH ×2 (08:49→20:53)
[2019-02-06] MEDS: METOPROLOL (XL) 50 MG TAB PO SCH ×2 (08:50→20:53)
--- NOTE | 2019-02-06 08:53 | PN ---
DATE: 02/06/2019 SUBJECTIVE: The patient is stable. No events overnight. OBJECTIVE: VITAL SIGNS: Blood pressure is 153/78, pulse 108, respiration 18, temperature 98.5. HEENT: Head is normocephalic. NECK: Supple. HEART: Regular rate. LUNGS: Show diminished breath sounds at the base. ABDOMEN: Soft, nontender to palpation. No rebound or guarding. EXTREMITIES: Negative for clubbing, cyanosis. No edema. DERMATOLOGIC: No rashes. MUSCULOSKELETAL: No joint effusion. NEUROLOGIC: No change in exam. MEDICATIONS: Reviewed. LABORATORY DATA: Reviewed. IMAGING STUDIES: Have been reviewed. ASSESSMENT AND PLAN: 1. End-stage renal disease. Plan is for hemodialysis tomorrow. 2. Anemia. Monitor hemoglobin and hematocrit levels. Will give Epogen as needed. 3. Mineral bone disorder. Monitor calcium and phosphorus levels. 4. Hypertension. Continue current blood pressure regimen. 5. Small-bowel obstruction. The patient is clinically improving. Nasogastric tube removed. Passing gas. Continue to monitor. 6. History of chronic obstructive pulmonary disease. Continue nebulizers as needed. 7. Dyslipidemia. Continue statin therapy. 8. Diabetes. Continue current insulin regimen. 9. History of atrial fibrillation. Dictated By: ALDAIR NAVARRO DO NR/NTS Conf#: [id number] DID#: [id number] CC: FABIANO EDMOND MD;*EndCC*
[2019-02-06 12:00] VITALS: BP 125/67; PULSE 85; RESP 18
--- NOTE | 2019-02-06 12:23 | CONS ---
Consult Date/Type/Reason Admit Date/Time Feb 04, 2019 at 10:25 Initial Consult Date 02/04/19 Date/Time of Note DATE: 02/06/19 TIME: 12:19 Subjective NO acute events - pt comfortable overall- no CP now - able to tolerate some PO - will resume anti-coagulation therapy now. ROS: No fever, no chills, no nausea, no vomiting, no diarrhea/constipation No recent weight changes No chest pain, no PND, no orthopnea - mild SOB No dizziness, blurred vision No thirst, no heat or cold intolerance Objective Vitals Vital Signs Date Temp Pulse Resp B/P (MAP) Pulse Ox O2 O2 Flow FiO2 Time Delivery Rate 02/06/19 98.0 85 18 125/67 98 12:00 (86) 02/06/19 Nasal 2.0 08:27 Cannula Intake and Output 02/05/19 02/05/19 02/06/19 1515:00 23:00 07:00 IntakeIntake Total 830 ml 240 ml BalanceBalance 830 ml 240 ml Exam General: WN/WD/NAD, AOx 2-3 sleepy HEENT: Unicetric/atraumatic/EOMI (follows commands) NECK: JVD elevated, no thyromegaly Lymph: no lymphadenopathy HEART: regular with no S3, II/ systolic murmur at apex, PMI L LUNGS: Coarse sounds ABD: soft, NT, ND, +BS : Intact Neuro: non focal SKIN: chronic changes EXT: trace edema Results/Medications Result Diagram: 02/05/19 0613 02/05/19 0613 Results 24 hrs Laboratory Tests Test 02/05/19 16:46 02/05/19 23:56 02/06/19 05:39 02/06/19 07:52 Bedside Glucose 79 121 97 103 Test 02/06/19 12:00 Bedside Glucose 124 Home Meds Reported Medications Amlodipine Besylate* (Amlodipine Besylate*) 10 Mg Tablet, 10 MG PO DAILY, #30 TAB 02/04/19 Metoprolol Succinate* (Toprol XL*) 50 Mg Tab.er.24h, 50 MG PO BID, #30 TAB 02/04/19 Trazodone Hcl* (Desyrel*) 50 Mg Tab, 50 MG PO QHS, #30 TAB 02/04/19 Pantoprazole* (Pantoprazole*) 40 Mg Tablet.dr, 40 MG PO AC BREAKFAST, TAB 02/04/19 Glimepiride* (Glimepiride*) 2 Mg Tablet, 1 MG PO WITH BREAKFAST, TAB 02/04/19 Diltiazem Hcl* (Diltiazem XT) 240 Mg Capsule.er, 240 MG PO DAILY, #30 CAP 02/04/19 Bumetanide* (Bumetanide*) 1 Mg Tablet, 1 MG PO BID, TAB 02/04/19 Apixaban* (Eliquis*) 2.5 Mg Tablet, 2.5 MG PO BID, TAB 02/04/19 Sucralfate* (Carafate*) 1 Gm Tab, 2 GM PO AC MEALS AND BEDTIME, TAB 02/04/19 Atorvastatin Calcium* (Atorvastatin Calcium*) 20 Mg Tablet, 20 MG PO QHS, #30 TAB 02/04/19 Budesonide-Formoterol Fumarate* (Symbicort*) 160-4.5 Hfa.aer.ad, 2 PUFF INHALATION BID, #1 EACH 02/04/19 Hydralazine Hcl* (Hydralazine Hcl*) 25 Mg Tab, 25 MG PO BID, #60 TAB 02/04/19 Discontinued Reported Medications Sucralfate* (Carafate*) 1 Gm Tab, 1 TAB ORAL QID 01/12/19 Ranitidine Hcl* (Ranitidine Hcl*) 300 Mg Tablet, 1 TAB ORAL DAILY 01/12/19 Hydralazine Hcl* (Hydralazine Hcl*) 25 Mg Tab, 1 TAB ORAL BID PRN for HTN 01/12/19 Atorvastatin Calcium (Atorvastatin Calcium) 20 Mg Tablet, 1 TAB ORAL QHS 01/12/19 Ibandronate Sodium* (Boniva*) 150 Mg Tablet, 150 MG PO Q7D, TAB 05/07/16 Trazodone Hcl* (Trazodone Hcl*) 50 Mg Tablet, 50 MG PO QHS, #30 TAB 05/07/16 Bumetanide* (Bumetanide*) 1 Mg Tablet, 1 MG PO BID, TAB 05/07/16 Glimepiride* (Glimepiride*) 2 Mg Tablet, 2 MG PO WITH BREAKFAST DINNE, TAB 05/07/16 Pioglitazone Hcl* (Actos*) 15 Mg Tablet, 15 MG PO DAILY, #30 TAB 05/07/16 Discontinued Scripts Apixaban* (Eliquis*) 2.5 Mg Tablet, 5 MG PO BID, #60 TAB 1 Refill Prov:ULYSSES LOVE MD 05/09/16 Metoprolol Tartrate* (Lopressor*) 25 Mg Tab, 12.5 MG PO BID, #60 TAB Prov:ULYSSES LOVE MD 05/09/16 Medications Current Medications Fluticasone/ Vilanterol (Breo Ellipta 200-25 Mcg Inh) 1 inh DAILY INH Last administered on 02/06/19at 08:48; Admin Dose 1 INH; Start 02/05/19 at 09:00 Diagnostic Test (Pha) (Accu-Chek) 1 ea 02 XX ; Start 02/05/19 at 02:00 Sodium Chloride 1,000 ml @ 40 mls/hr Q24H IV Last administered on 02/05/19at 23:45; Admin Dose 40 MLS/HR; Start 02/04/19 at 15:00 IV Flush (NS 3 ml) 3 ml PER PROTOCOL IV ; Start 02/04/19 at 15:00 Ondansetron HCl (Zofran Inj) 4 mg Q6H PRN IV NAUSEA/VOMITING; Start 02/04/19 at 15:00 Acetaminophen (Tylenol Supp) 650 mg Q6H PRN [place] .PAIN 1-3 OR TEMP; Start 02/04/19 at 15:00 Morphine Sulfate (morphine) 2 mg Q4H PRN IV .SEVERE PAIN 7-10 Last administered on 02/05/19at 12:54; Admin Dose 2 MG; Start 02/04/19 at 15:00 Famotidine (Pepcid Iv) 20 mg DAILY IV Last administered on 02/06/19at 08:49; Admin Dose 20 MG; Start 02/04/19 at 15:00 Levalbuterol (Xopenex Neb) 1.25 mg Q4H RESP THERAPY PRN HHN spb/wheezing; Start 02/04/19 at 15:00 Ipratropium [place] (Atrovent 0.02% (Neb)) 0.5 mg Q4H RESP THERAPY PRN HHN wheezing/sob; Start 02/04/19 at 15:00 Miscellaneous Information 1 ea NOTE XX ; Start 02/04/19 at 15:00 Glucose (Glutose) 15 gm Q15M PRN PO DECREASED GLUCOSE; Start 02/04/19 at 15:00 Glucose (Glutose) 22.5 gm Q15M PRN PO DECREASED GLUCOSE; Start 02/04/19 at 15:00 Dextrose (D50w Syringe) 25 ml Q15M PRN IV DECREASED GLUCOSE; Start 02/04/19 at 15:00 Dextrose (D50w Syringe) 50 ml Q15M PRN IV DECREASED GLUCOSE; Start 02/04/19 at 15:00 Glucagon (Glucagen) 1 mg Q15M PRN IM DECREASED GLUCOSE; Start 02/04/19 at 15:00 Glucose (Glutose) 15 gm Q15M PRN BUCCAL DECREASED GLUCOSE; Start 02/04/19 at 15:00 Hydralazine HCl (Apresoline) 10 mg Q6H PRN IV sbp>160 Last administered on 02/05/19at 12:54; Admin Dose 10 MG; Start 02/04/19 at 15:30 Labetalol HCl (Labetalol) 10 mg Q4H PRN IV sbp >160; Start 02/05/19 at 09:00 Amiodarone HCl (Cordarone) 400 mg TID PO Last administered on 02/06/19at 12:03; Admin Dose 400 MG; Start 02/05/19 at 21:00 Amlodipine Besylate (Norvasc) 10 mg DAILY PO Last administered on 02/06/19at 08:49; Admin Dose 10 MG; Start 02/06/19 at 09:00 Atorvastatin Calcium (Lipitor) 20 mg QHS PO Last administered on 02/05/19at 20:5 6; Admin Dose 20 MG; Start 02/05/19 at 21:00 Bumetanide (Bumex) 1 mg BID DIURETICS PO Last administered on 02/06/19at 05:40; Admin Dose 1 MG; Start 02/05/19 at 18:00 Diltiazem HCl (Cardizem Cd) 240 mg DAILY PO Last administered on 02/06/19at 08:48; Admin Dose 240 MG; Start 02/06/19 at 09:00 Hydralazine HCl (Apresoline) 25 mg BID PO Last administered on 02/06/19at 08:50; Admin Dose 25 MG; Start 02/05/19 at 21:00 Pantoprazole (Protonix Tab) 40 mg AC BREAKFAST PO Last administered on 02/06/19at 07:59; Admin Dose 40 MG; Start 02/06/19 at 07:25 Trazodone HCl (Desyrel) 50 mg QHS PO Last administered on 02/05/19at 20:55; Admin Dose 50 MG; Start 02/05/19 at 21:00 Apixaban (Eliquis) 2.5 mg BID PO Last administered on 02/06/19at 08:49; Admin Dose 2.5 MG; Start 02/05/19 at 21:00 Metoprolol Succinate (Toprol Xl) 50 mg BID PO Last administered on 02/06/19at 08:50; Admin Dose 50 MG; Start 02/05/19 at 18:00 Insulin Aspart (Novolog Insulin Pen) NOVOLOG *MILD* ALGORI... Q6 SC ; Start 02/06/19 at 00:00 Assessment/Plan Hospital Course (Demo Recall) 1. A. fib - rate controlled in 80s now - resumne anti-coagultio now with Eliquis 2. Anemia. Monitor hemoglobin and hematocrit levels. Will give Epogen as needed. 3. Mineral bone disorder. Monitor calcium and phosphorus levels. 4. Hypertension. Continue current blood pressure regimen. Better now. 5. Small-bowel obstruction. The patient is clinically improving. Nasogastric tube removed. Passing gas. Continue to monitor. NO surgery planned. 6. History of chronic obstructive pulmonary disease. Continue nebulizers as needed. 7. Dyslipidemia. Continue statin therapy. 8. Diabetes. Continue current insulin regimen. 9. ESRD - HD to follow. HANS LEE MD Feb 06, 2019 12:23
--- NOTE | 2019-02-06 13:27 | PN ---
Date/Time of Note Date/Time of Note DATE: 02/06/19 TIME: 13:25 Objective Vitals Vital Signs Date Temp Pulse Resp B/P (MAP) Pulse Ox O2 O2 Flow FiO2 Time Delivery Rate 02/06/19 98.0 85 18 125/67 98 12:00 (86) 02/06/19 Nasal 2.0 08:27 Cannula Intake and Output 02/05/19 02/05/19 02/06/19 1515:00 23:00 07:00 IntakeIntake Total 830 ml 240 ml BalanceBalance 830 ml 240 ml Results Result Diagram: 02/05/1961202/05/19612 Medications Medications Current Medications Fluticasone/ Vilanterol (Breo Ellipta 200-25 Mcg Inh) 1 inh DAILY INH Last administered on 02/06/19at 08:48; Admin Dose 1 INH; Start 02/05/19 at 09:00 Diagnostic Test (Pha) (Accu-Chek) 1 ea 02 XX ; Start 02/05/19 at 02:00 IV Flush (NS 3 ml) 3 ml PER PROTOCOL IV ; Start 02/04/19 at 15:00 Ondansetron HCl (Zofran Inj) 4 mg Q6H PRN IV NAUSEA/VOMITING; Start 02/04/19 at 15:00 Acetaminophen (Tylenol Supp) 650 mg Q6H PRN [place] .PAIN 1-3 OR TEMP; Start 02/04/19 at 15:00 Morphine Sulfate (morphine) 2 mg Q4H PRN IV .SEVERE PAIN 7-10 Last administered on 02/05/19at 12:54; Admin Dose 2 MG; Start 02/04/19 at 15:00 Famotidine (Pepcid Iv) 20 mg DAILY IV Last administered on 02/06/19at 08:49; Admin Dose 20 MG; Start 02/04/19 at 15:00 Levalbuterol (Xopenex Neb) 1.25 mg Q4H RESP THERAPY PRN HHN spb/wheezing; Start 02/04/19 at 15:00 Ipratropium [place] (Atrovent 0.02% (Neb)) 0.5 mg Q4H RESP THERAPY PRN HHN wheezing/sob; Start 02/04/19 at 15:00 Miscellaneous Information 1 ea NOTE XX ; Start 02/04/19 at 15:00 Glucose (Glutose) 15 gm Q15M PRN PO DECREASED GLUCOSE; Start 02/04/19 at 15:00 Glucose (Glutose) 22.5 gm Q15M PRN PO DECREASED GLUCOSE; Start 02/04/19 at 15:00 Dextrose (D50w Syringe) 25 ml Q15M PRN IV DECREASED GLUCOSE; Start 02/04/19 at 15:00 Dextrose (D50w Syringe) 50 ml Q15M PRN IV DECREASED GLUCOSE; Start 02/04/19 at 15:00 Glucagon (Glucagen) 1 mg Q15M PRN IM DECREASED GLUCOSE; Start 02/04/19 at 15:00 Glucose (Glutose) 15 gm Q15M PRN BUCCAL DECREASED GLUCOSE; Start 02/04/19 at 15:00 Hydralazine HCl (Apresoline) 10 mg Q6H PRN IV sbp>160 Last administered on 02/05/19at 12:54; Admin Dose 10 MG; Start 02/04/19 at 15:30 Labetalol HCl (Labetalol) 10 mg Q4H PRN IV sbp >160; Start 02/05/19 at 09:00 Amiodarone HCl (Cordarone) 400 mg TID PO Last administered on 02/06/19at 12:03; Admin Dose 400 MG; Start 02/05/19 at 21:00 Amlodipine Besylate (Norvasc) 10 mg DAILY PO Last administered on 02/06/19at 08:49; Admin Dose 10 MG; Start 02/06/19 at 09:00 Atorvastatin Calcium (Lipitor) 20 mg QHS PO Last administered on 02/05/19at 20:56; Admin Dose 20 MG; Start 02/05/19 at 21:00 Bumetanide (Bumex) 1 mg BID DIURETICS PO Last administered on 02/06/19 05:40; Admin Dose 1 MG; Start 02/05/19 at 18:00 Diltiazem HCl (Cardizem Cd) 240 mg DAILY PO Last administered on 02/06/19 08:48; Admin Dose 240 MG; Start 02/06/19 at 09:00 Hydralazine HCl (Apresoline) 25 mg BID PO Last administered on 02/06/19at 08:50; Admin Dose 25 MG; Start 02/05/19 at 21:00 Pantoprazole (Protonix Tab) 40 mg AC BREAKFAST PO Last administered on 02/06/19at 07:59; Admin Dose 40 MG; Start 02/06/19 at 07:25 Trazodone HCl (Desyrel) 50 mg QHS PO Last administered on 02/05/19at 20:55; Admin Dose 50 MG; Start 02/05/19 at 21:00 Apixaban (Eliquis) 2.5 mg BID PO Last administered on 02/06/19at 08:49; Admin Dose 2.5 MG; Start 02/05/19 at 21:00 Metoprolol Succinate (Toprol Xl) 50 mg BID PO Last administered on 02/06/19at 08:50; Admin Dose 50 MG; Start 02/05/19 at 18:00 Insulin Aspart (Novolog Insulin Pen) NOVOLOG *MILD* ALGORI... Q6 SC ; Start 02/06/19 at 00:00 VTE Prophylaxis Risk score (from Ns)>0 risk: 4 [place] [facility] [place]/Catheters IV Catheter Type: Jackson in Place: No Assessment/Plan Hospital Course Subjective Patient's abdominal pain and SBO appears to be resolving, current complaint is intense bilateral foot pain Objective Physical exam General: Patient is laying in bed and answers questions appropriately Mentation: Patient is alert and oriented 4, Head: Normocephalic atraumatic Eyes: EOMI, pupils reactive to light Neck: Supple, nontender, midline Respiratory: Clear to auscultation bilaterally Cardiovascular: regular rate, no obvious murmurs Gastrointestinal: non-tender to palpation, bowel sounds heard. Neurological: Moves all extremities spontaneously Skin: No new skin lesions ASSESSMENT AND PLAN: 79 yo obese F w/ ESRD on hemodialysis MWF, left AV fistula, atrial fibrillation,copd, diabetes, hypertension, hyperlipidemia, prior abdominal surgeries, was brought into the emergency room with severe abdominal pain associated with multiple episodes of nonbilious/nonbloody vomiting and inability to have a bowel movement x24 hours duration,found to have partial SBO.. Intense bilateral foot pain -Patient does have diabetes however this pain is intense to touch -X-ray pending -Uric acid pending -[place] for pain -Rule out DVT with ultrasound Partial small bowel obstruction, recurrent, resolved -Resolved -NG tube out -Patient on clear liquid diet to advance per surgeon ESRD/HD MWF -Access: Left AV fistula -Nephrology consultation -HD per nephro team Anemia of ESRD -H&H fairly stable. -Epogen if needed per nephro team. DMII -A1c. -insulin while in house Hypertension -Treat with as needed medications, -Resume home meds when able A. fib rvr -HR intermittent RVR -resume home meds -cardiology consulted -I cardiology started patient on amiodarone -On Eliquis COPD -Resume home medications Dyslipidemia -Resume statin w. DVT prophylaxis: Eliquis Disposition -General surgery to increase diet as tolerated, will work-up bilateral feet issues as patient cannot walk currently due to the pain. FABIANO EDMOND Feb 06, 2019 13:27
[2019-02-06 16:28] VITALS: BP 128/71; PULSE 78; RESP 18
[2019-02-06] MEDS: HYDROCODONE/APAP (5/325) TAB PO PRN (17:26)
[2019-02-06 20:00] VITALS: BP 127/59; PULSE 74; RESP 19
[2019-02-06] MEDS: DOCUSATE SODIUM 100 MG CAP PO SCH (20:49)
[2019-02-06] MEDS: ATORVASTATIN 20 MG TAB PO SCH (20:49)
[2019-02-06] MEDS: traZODone 50 MG TAB PO SCH (20:52)
[2019-02-07] VITALS (19 sets, daily range): BP systolic 122–152; BP diastolic 58–83; PULSE 63–90; RESP 18–20
[2019-02-07] MEDS: ACCU-CHEK XX SCH (01:26)
[2019-02-07] MEDS: HYDROCODONE/APAP (5/325) TAB PO PRN ×3 (02:42→21:05)
[2019-02-07] MEDS: BUMETANIDE 1 MG TAB PO SCH ×2 (06:09→17:02)
--- NOTE | 2019-02-07 06:16 | CONS ---
DATE OF ADMISSION: 02/04/2019 DATE OF CONSULTATION: 02/05/2019 TYPE OF CONSULTATION: Cardiology. REFERRING PHYSICIANS: Dr. Peña. REASON FOR EVALUATION: Shortness of breath, hypertension. HISTORY OF PRESENT ILLNESS: Ms. Elena is a 79-year-old woman with history of hypertension, dyslipide alexei, history of end-stage renal disease on hemodialysis Thursday, Thursday, Thursday; history of diabete s, history of metabolic syndrome, prior history of atrial fibrillation, COPD, who comes to the hospit ct now for evaluation of possible small-bowel obstruction. The patient had an NG tube removed but sh e had a bowel movement and since that time she remained to be fairly stable. On presentation, the kristin fox was in sinus rhythm but she converted to atrial fibrillation of which she had a history. She i s somewhat tachycardic now. She is in pain and feels to be fairly uncomfortable. I think for now we are going to try to see if we can convert the patient back to sinus rhythm if she is anticoagulated. Alternatively, rate control strategy will be implemented. The patient is in some degree of discomf ort and fairly uncomfortable at this particular point. She carries a diagnosis of . She is not anticoagulated now. I will discuss this with primary team. Adjust medications as needed. PAST MEDICAL HISTORY: History of hypertension, history of anemia, history of COPD, history of paroxy smal atrial fibrillation, history of end-stage renal disease on hemodialysis, history of possible sma ll-bowel obstruction. ALLERGIES: THE PATIENT IS ALLERGIC TO WARFARIN. MEDICATIONS: Here include: 1. Labetalol 10 mg once a day. 2. Metoprolol titrate 50 mg IV. 3. Insulin sliding scale. 4. Aldosterone. 5. Wellbutrin. 6. Atrovent. 7. Glucose replacement. She is not take any p.o. medications now because of the small-bowel obstruction. REVIEW OF SYSTEMS: CONSTITUTIONAL: No fevers and some low grade chills. The patient now is pain after NG tube removed. HEENT: . CARDIAC: . RESPIRATORY: Short of breath. GASTROINTESTINAL: Small bowel obstruction. GENITOURINARY: . NEUROLOGIC: No focal neurologic deficits. PHYSICAL EXAMINATION: VITAL SIGNS: Temperature is 98.1, heart rate 98, blood pressure 174/86. GENERAL: She is , alert and oriented x3, aware of her condition. HEAD: Normocephalic . NECK: Supple. JVD 6-7 cm. There is no lymphadenopathy. HEART: Irregularly irregular. Soft systolic murmur. PMI is nondisplaced. There is no S3. LUNGS: Coarse to base. ABDOMEN: Distended, bowel sounds are present. There is no . EXTREMITIES: Show cyanosis. Trace edema. LABORATORY DATA: White blood cell count 4.9, hemoglobin 9.8, platelets 192. INR is 1.274, potassium 4.1, creatinine 6.8. ASSESSMENT AND PLAN: 1. Atrial fibrillation. Patient with report of paroxysmal atrial fibrillation. She does not appear to be anticoagulated now for unclear to me reason. The patient had a 2D echo during last admission which shows preserved ejection fraction and she was in sinus at that time. I think the patient ought to be on the defibrillator for atrial fibrillation unless there is a contraindication. I will discu ss this with primary team. I think it would be reasonable to attempt to convert the patient back to sinus rhythm. 2. note from 3 years ago. She was on Eliquis and amiodarone at that time. 3. Diabetes. Continue diabetic optimization and care. Continue to monitor closely. 4. Short of breath likely with some degree of fluid overload, pain, discomfort, hemodialysis the [facility] team. 5. Hypertension. Blood pressure on the high side. Will add medications as needed. I would like to thank Dr. Peña for referring this patient for my evaluation. Dictated By: HANS LEE MD ML/NTS Conf#: [id number] DID#: [id number] CC: FABIANO PEÑA MD;*EndCC*
[2019-02-07] MEDS: INSULIN ASPART [NOVOLOG] 3 ML PEN SC SCH ×4 (06:24→21:09)
--- NOTE | 2019-02-07 08:42 | PN ---
DATE: 02/07/2019 SUBJECTIVE: The patient is stable, no events overnight. The patient is scheduled for hemodialysis t [facility]. OBJECTIVE: VITAL SIGNS: Blood pressure is 138/63, pulse 70, respiration 18, temperature 98.2. HEENT: Head is normocephalic. NECK: Supple. HEART: Regular rate. LUNGS: Show diminished breath sounds at the base. ABDOMEN: Soft, nontender to palpation without rebound or guarding. EXTREMITIES: Negative for clubbing, cyanosis, no edema. DERMATOLOGIC: No rashes. MUSCULOSKELETAL: No joint effusion. NEUROLOGIC: No change in exam. MEDICATIONS: The patient's medications have been reviewed. LABORATORY DATA: Reviewed. IMAGING STUDIES: Have been reviewed. ASSESSMENT AND PLAN: 1. End-stage renal disease. Plan is for hemodialysis today. Will dialyze 3 hours with a 3K bath, ca lcium 2.5. 2. Anemia. Monitor hemoglobin and hematocrit levels. Continue Epogen. 3. Mineral bone disorder, monitor calcium and phosphorus levels. 4. Hypertension. Continue current blood pressure regimen. 5. Small bowel obstruction. The patient is clinically improving. Continue to monitor. NG tube was removed. 6. History of COPD. Continue nebulizers. 7. Dyslipidemia. Continue statin therapy. 8. Diabetes. Continue current insulin management. 9. History of atrial fibrillation. Dictated By: ALDAIR AVILES/MARIA INES Conf#: [id number] DID#: [id number] CC: FABIANO EDMOND MD;*EndCC*
[2019-02-07] MEDS: FAMOTIDINE 20 MG INJ IV SCH (08:45)
[2019-02-07] MEDS: APIXABAN 5 MG TABLET PO SCH ×2 (08:45→20:56)
[2019-02-07] MEDS: DILTIAZEM (CD) 240 MG CAP PO SCH (08:45)
[2019-02-07] MEDS: AMLODIPINE 10 MG TAB PO SCH (08:45)
[2019-02-07] MEDS: PANTOPRAZOLE (EC) 40 MG TAB PO SCH (08:45)
[2019-02-07] MEDS: AMIODARONE 200 MG TAB PO SCH ×3 (08:45→20:55)
[2019-02-07] MEDS: FLUTICASONE/VILANTEROL 200-25 INH DEVICE INH SCH (08:45)
[2019-02-07] MEDS: DOCUSATE SODIUM 100 MG CAP PO SCH ×2 (08:45→20:54)
[2019-02-07] MEDS: METOPROLOL (XL) 50 MG TAB PO SCH ×2 (08:46→20:55)
--- NOTE | 2019-02-07 13:26 | PN ---
Date/Time of Note Date/Time of Note DATE: 02/07/19 TIME: 13:14 Assessment/Plan VTE Prophylaxis Risk score (from Nsg)>0 risk: 4 SCD applied (from Nsg): Yes Pharmacological prophylaxis: apixaban Lines/Catheters IV Catheter Type (from Nrsg): Peripheral IV Urinary Cath still in place: No Assessment/Plan Assessment/Plan 1. Partial SBO, improved, advance diet 2. ESRD, DD, HD today, likely tomorrow 3. Pain on feet, Diabetic encephalopathy, arterial US r/o PVD, neurontin 4. Normocytic anemia, CKD related, on epogen 5. DM, stable 6. HTN, controlled 7. Atrial fibrillation, on eliquis 8. COPD, stable 9. Dyslipidemia, on statin 10. DVT prophylaxis: Eliquis Result Diagram: 02/07/1972002/07/19720 Results 24hrs Laboratory Tests Test 02/06/19 14:58 02/06/19 17:21 02/06/19 23:30 02/07/19 06:05 Uric Acid 4.7 Bedside Glucose 128 104 143 Test 02/07/19 07:21 02/07/19 11:37 White Blood Count 6.0 Red Blood Count 3.12 L Hemoglobin 9.2 L Hematocrit 30.0 L Mean Corpuscular Volume 96.2 Mean Corpuscular 29.5 Hemoglobin Mean Corpuscular 30.7 L Hemoglobin Concent Red Cell Distribution 17.4 H Width Platelet Count 173 Mean Platelet Volume 11.1 H Immature Granulocytes % 0.300 Neutrophils % 77.5 H Lymphocytes % 8.3 L Monocytes % 11.4 H Eosinophils % 2.2 Basophils % 0.3 Nucleated Red Blood 0.0 Cells % Immature Granulocytes # 0.020 Neutrophils # 4.7 Lymphocytes # 0.5 L Monocytes # 0.7 Eosinophils # 0.1 Basophils # 0.0 Nucleated Red Blood 0.0 Cells # Sodium Level 140 Potassium Level 4.4 Chloride Level 100 Carbon Dioxide Level 27 Anion Gap 13 Blood Urea Nitrogen 44 H Creatinine 6.64 H Est Glomerular Filtrat Rate mL/min Glucose Level 124 Calcium Level 8.5 Phosphorus Level 4.7 Magnesium Level 2.1 Bedside Glucose 101 Subjective 24 Hr Interval Summary Free Text/Dictation tolerates diet pain on feet Exam/Review of Systems Exam Vitals Vital Signs Date Temp Pulse Resp B/P (MAP) Pulse Ox O2 O2 Flow FiO2 Time Delivery Rate 02/07/19 82 20 143/77 99 Nasal 2.0 12:44 (99) Cannula 02/07/19 98.2 07:04 Intake and Output 02/06/19 02/06/19 02/07/19 1515:00 23:00 07:00 IntakeIntake Total 740 ml BalanceBalance 740 ml Constitutional: alert, oriented, well developed Psych: no complaints, nl mood/affect Head: normocephalic, atraumatic Eyes: nl conjunctiva, EOMI, nl lids, PERRL ENMT: nl external ears & nose, nl lips & teeth, nl nasal mucosa & septum Neck: supple, non-tender Respiratory: clear to auscultation, normal air movement; No congested cough, No crackles/rales, No diminished breath sounds, No intercostal retraction, No labored breathing, No respirations, No tactile fremitus, No wheezing, No other Cardiovascular: irregular rhythm Gastrointestinal: soft, nl liver, spleen, non-tender Musculoskeletal: nl extremities to inspection Extremities: normal pulses; No calf tenderness, No cyanosis, No clubbing, No edema, No pitting pedal edema, No palpable cord, No tenderness, No other Neurological: [employer]ATE II-XII intact, nl mental status, nl speech, nl strength Results Results 24hrs Laboratory Tests Test 02/06/19 14:58 02/06/19 17:21 02/06/19 23:30 02/07/19 06:05 Uric Acid 4.7 Bedside Glucose 128 104 143 Test 02/07/19 07:21 02/07/19 11:37 White Blood Count 6.0 Red Blood Count 3.12 L Hemoglobin 9.2 L Hematocrit 30.0 L Mean Corpuscular Volume 96.2 Mean Corpuscular 29.5 Hemoglobin Mean Corpuscular 30.7 L Hemoglobin Concent Red Cell Distribution 17.4 H Width Platelet Count 173 Mean Platelet Volume 11.1 H Immature Granulocytes % 0.300 Neutrophils % 77.5 H Lymphocytes % 8.3 L Monocytes % 11.4 H Eosinophils % 2.2 Basophils % 0.3 Nucleated Red Blood 0.0 Cells % Immature Granulocytes # 0.020 Neutrophils # 4.7 Lymphocytes # 0.5 L Monocytes # 0.7 Eosinophils # 0.1 Basophils # 0.0 Nucleated Red Blood 0.0 Cells # Sodium Level 140 Potassium Level 4.4 Chloride Level 100 Carbon Dioxide Level 27 Anion Gap 13 Blood Urea Nitrogen 44 H Creatinine 6.64 H Est Glomerular Filtrat Rate mL/min Glucose Level 124 Calcium Level 8.5 Phosphorus Level 4.7 Magnesium Level 2.1 Bedside Glucose 101 Medications Medication Current Medications Fluticasone/ Vilanterol (Breo Ellipta 200-25 Mcg Inh) 1 inh DAILY INH Last administered on 02/07/19at 08:45; Admin Dose 1 INH; Start 02/05/19 at 09:00 Diagnostic Test (Pha) (Accu-Chek) 1 ea 02 XX ; Start 02/05/19 at 02:00 IV Flush (NS 3 ml) 3 ml PER PROTOCOL IV ; Start 02/04/19 at 15:00 Ondansetron HCl (Zofran Inj) 4 mg Q6H PRN IV NAUSEA/VOMITING; Start 02/04/19 at 15:00 Acetaminophen (Tylenol Supp) 650 mg Q6H PRN [place] .PAIN 1-3 OR TEMP; Start 02/04/19 at 15:00 Famotidine (Pepcid Iv) 20 mg DAILY IV Last administered on 02/07/19at 08:45; Admin Dose 20 MG; Start 02/04/19 at 15:00 Levalbuterol (Xopenex Neb) 1.25 mg Q4H RESP THERAPY PRN HHN spb/wheezing; Start 02/04/19 at 15:00 Ipratropium [place] (Atrovent 0.02% (Neb)) 0.5 mg Q4H RESP THERAPY PRN HHN w heezing/sob; Start 02/04/19 at 15:00 Miscellaneous Information 1 ea NOTE XX ; Start 02/04/19 at 15:00 Glucose (Glutose) 15 gm Q15M PRN PO DECREASED GLUCOSE; Start 02/04/19 at 15:00 Glucose (Glutose) 22.5 gm Q15M PRN PO DECREASED GLUCOSE; Start 02/04/19 at 15:00 Dextrose (D50w Syringe) 25 ml Q15M PRN IV DECREASED GLUCOSE; Start 02/04/19 at 15:00 Dextrose (D50w Syringe) 50 ml Q15M PRN IV DECREASED GLUCOSE; Start 02/04/19 at 15:00 Glucagon (Glucagen) 1 mg Q15M PRN IM DECREASED GLUCOSE; Start 02/04/19 at 15:00 Glucose (Glutose) 15 gm Q15M PRN BUCCAL DECREASED GLUCOSE; Start 02/04/19 at 15:00 Hydralazine HCl (Apresoline) 10 mg Q6H PRN IV sbp>160 Last administered on 02/05/19at 12:54; Admin Dose 10 MG; Start 02/04/19 at 15:30 Labetalol HCl (Labetalol) 10 mg Q4H PRN IV sbp >160; Start 02/05/19 at 09:00 Amiodarone HCl (Cordarone) 400 mg TID PO Last administered on 02/06/19 20:52; Admin Dose 400 MG; Start 02/05/19 at 21:00 Amlodipine Besylate (Norvasc) 10 mg DAILY PO Last administered on 02/06/19 08:49; Admin Dose 10 MG; Start 02/06/19 at 09:00 Atorvastatin Calcium (Lipitor) 20 mg QHS PO Last administered on 02/06/19 20:49; Admin Dose 20 MG; Start 02/05/19 at 21:00 Bumetanide (Bumex) 1 mg BID DIURETICS PO Last administered on 02/07/19 06:09; Admin Dose 1 MG; Start 02/05/19 at 18:00 Diltiazem HCl (Cardizem Cd) 240 mg DAILY PO Last administered on 02/06/19 08:48; Admin Dose 240 MG; Start 02/06/19 at 09:00 Hydralazine HCl (Apresoline) 25 mg BID PO Last administered on 02/06/19 20:50; Admin Dose 25 MG; Start 02/05/19 at 21:00 Pantoprazole (Protonix Tab) 40 mg AC BREAKFAST PO Last administered on 02/07/19 08:45; Admin Dose 40 MG; Start 02/06/19 at 07:25 Trazodone HCl (Desyrel) 50 mg QHS PO Last administered on 02/06/19 20:52; Admin Dose 50 MG; Start 02/05/19 at 21:00 Apixaban (Eliquis) 2.5 mg BID PO Last administered on 02/07/19 08:45; Admin Dose 2.5 MG; Start 02/05/19 at 21:00 Metoprolol Succinate (Toprol Xl) 50 mg BID PO Last administered on 02/06/19 20:53; Admin Dose 50 MG; Start 02/05/19 at 18:00 Insulin Aspart (Novolog Insulin Pen) NOVOLOG *MILD* ALGORI... Q6 SC Last admini stered on 02/07/19 06:24; Admin Dose 1 UNIT; Start 02/06/19 at 00:00 Acetaminophen/ Hydrocodone Bitart ([place] (5/325)) 1 tab Q4H PRN PO MODERATE PAIN LEVEL 4-6 Last administered on 02/07/19 02:42; Admin Dose 1 TAB; Start 02/06/19 at 13:30 Docusate Sodium (Colace) 100 mg BID PO Last administered on 02/07/19 08:45; Admin Dose 100 MG; Start 02/06/19 at 21:00 FOSTER OWEN MD Feb 07, 2019 13:24
--- NOTE | 2019-02-07 17:15 | CONS ---
Assessment/Plan Assessment/Plan Hospital Course (Demo Recall) IMP: 1.AF-rate controlled 2.HTN 3.cad 4.ESRD on HD 5. anemia 6.Dyslipidemia Recc: -Tele -serial ecg's -Continue dilt/BB as tolerated -Continue hydralazine and d/c norvasc as second CCB -Continue amiodarone/eliquis and follow HR/rhythm closely -HD for volume removal Consultation Date/Type/Reason Admit Date/Time Feb 04, 2019 at 10:25 Initial Consult Date 02/04/19 Type of Consult Cardiology Reason for Consultation AF Requesting Provider: FABIANO EDMOND Date/Time of Note DATE: 02/07/19 TIME: 17:11 Exam/Review of Systems Vital Signs Vitals Vital Signs Date Temp Pulse Resp B/P (MAP) Pulse Ox O2 O2 Flow FiO2 Time Delivery Rate 02/07/19 98.0 70 18 151/70 98 Nasal 15:31 (97) Cannula 02/07/19 2.0 12:44 Intake and Output 02/06/19 02/06/19 02/07/19 1515:00 23:00 07:00 IntakeIntake Total 740 ml BalanceBalance 740 ml Exam Exam Review of Systems: CONSTITUTIONAL: No fevers, chills. PULMONARY: No sob CARDIOVASCULAR: No chest pain/palpitations GASTROINTESTINAL: No nausea/vomiting. GENITOURINARY: No hematuria/dysuria. MUSCULOSKELETAL: No myagias/arthalgias. PSYCHIATRIC: The patient denies depression. NEUROLOGIC: No weakness Constitutional: alert Psych: no complaints Head: normocephalic ENMT: mucosa pink and moist Neck: supple, jvd (9 cm water) Respiratory: diminished breath sounds Cardiovascular: irregular rhythm Gastrointestinal: soft, non-tender Musculoskeletal: muscle tone (normal) Extremities: edema (none) Labs Result Diagram: 02/07/19 0721 02/07/19 0721 Results 24hrs Laboratory Tests Test 02/06/19 17:21 02/06/19 23:30 02/07/19 06:05 02/07/19 07:21 Bedside Glucose 128 104 143 White Blood Count 6.0 Red Blood Count 3.12 L Hemoglobin 9.2 L Hematocrit 30.0 L Mean Corpuscular Volume 96.2 Mean Corpuscular 29.5 Hemoglobin Mean Corpuscular 30.7 L Hemoglobin Concent Red Cell Distribution 17.4 H Width Platelet Count 173 Mean Platelet Volume 11.1 H Immature Granulocytes % 0.300 Neutrophils % 77.5 H Lymphocytes % 8.3 L Monocytes % 11.4 H Eosinophils % 2.2 Basophils % 0.3 Nucleated Red Blood 0.0 Cells % Immature Granulocytes # 0.020 Neutrophils # 4.7 Lymphocytes # 0.5 L Monocytes # 0.7 Eosinophils # 0.1 Basophils # 0.0 Nucleated Red Blood 0.0 Cells # Sodium Level 140 Potassium Level 4.4 Chloride Level 100 Carbon Dioxide Level 27 Anion Gap 13 Blood Urea Nitrogen 44 H Creatinine 6.64 H Est Glomerular Filtrat Rate mL/min Glucose Level 124 Calcium Level 8.5 Phosphorus Level 4.7 Magnesium Level 2.1 Test 02/07/19 11:37 02/07/19 17:02 Bedside Glucose 101 123 Medications Medications Current Medications Fluticasone/ Vilanterol (Breo Ellipta 200-25 Mcg Inh) 1 inh DAILY INH Last administered on 02/07/19at 08:45; Admin Dose 1 INH; Start 02/05/19 at 09:00 Diagnostic Test (Pha) (Accu-Chek) 1 ea 02 XX ; Start 02/05/19 at 02:00 IV Flush (NS 3 ml) 3 ml PER PROTOCOL IV ; Start 02/04/19 at 15:00 Ondansetron HCl (Zofran Inj) 4 mg Q6H PRN IV NAUSEA/VOMITING; Start 02/04/19 at 15:00 Acetaminophen (Tylenol Supp) 650 mg Q6H PRN [place] .PAIN 1-3 OR TEMP; Start 02/04/19 at 15:00 Famotidine (Pepcid Iv) 20 mg DAILY IV Last administered on 02/07/19at 08:45; Admin Dose 20 MG; Start 02/04/19 at 15:00 Levalbuterol (Xopenex Neb) 1.25 mg Q4H RESP THERAPY PRN HHN spb/wheezing; Start 02/04/19 at 15:00 Ipratropium [place] (Atrovent 0.02% (Neb)) 0.5 mg Q4H RESP THERAPY PRN HHN wheezing/sob; Start 02/04/19 at 15:00 Miscellaneous Information 1 ea NOTE XX ; Start 02/04/19 at 15:00 Glucose (Glutose) 15 gm Q15M PRN PO DECREASED GLUCOSE; Start 02/04/19 at 15:00 Glucose (Glutose) 22.5 gm Q15M PRN PO DECREASED GLUCOSE; Start 02/04/19 at 15:00 Dextrose (D50w Syringe) 25 ml Q15M PRN IV DECREASED GLUCOSE; Start 02/04/19 at 15:00 Dextrose (D50w Syringe) 50 ml Q15M PRN IV DECREASED GLUCOSE; Start 02/04/19 at 15:00 Glucagon (Glucagen) 1 mg Q15M PRN IM DECREASED GLUCOSE; Start 02/04/19 at 15:00 Glucose (Glutose) 15 gm Q15M PRN BUCCAL DECREASED GLUCOSE; Start 02/04/19 at 15:00 Hydralazine HCl (Apresoline) 10 mg Q6H PRN IV sbp>160 Last administered on 02/05/19at 12:54; Admin Dose 10 MG; Start 02/04/19 at 15:30 Labetalol HCl (Labetalol) 10 mg Q4H PRN IV sbp >160; Start 02/05/19 at 09:00 Amiodarone HCl (Cordarone) 400 mg TID PO Last administered on 02/06/19 20:52; Admin Dose 400 MG; Start 02/05/19 at 21:00 Amlodipine Besylate (Norvasc) 10 mg DAILY PO Last administered on 02/06/19 08:49; Admin Dose 10 MG; Start 02/06/19 at 09:00 Atorvastatin Calcium (Lipitor) 20 mg QHS PO Last administered on 02/06/19 20:49; Admin Dose 20 MG; Start 02/05/19 at 21:00 Bumetanide (Bumex) 1 mg BID DIURETICS PO Last administered on 02/07/19 17:02; Admin Dose 1 MG; Start 02/05/19 at 18:00 Diltiazem HCl (Cardizem Cd) 240 mg DAILY PO Last administered on 02/06/19 08:48; Admin Dose 240 MG; Start 02/06/19 at 09:00 Hydralazine HCl (Apresoline) 25 mg BID PO Last administered on 02/06/19 20:50; Admin Dose 25 MG; Start 02/05/19 at 21:00 Pantoprazole (Protonix Tab) 40 mg AC BREAKFAST PO Last administered on 02/07/19 08:45; Admin Dose 40 MG; Start 02/06/19 at 07:25 Trazodone HCl (Desyrel) 50 mg QHS PO Last administered on 02/06/19 20:52; Admin Dose 50 MG; Start 02/05/19 at 21:00 Apixaban (Eliquis) 2.5 mg BID PO Last administered on 02/07/19 08:45; Admin Dose 2.5 MG; Start 02/05/19 at 21:00 Metoprolol Succinate (Toprol Xl) 50 mg BID PO Last administered on 02/06/19 20:53; Admin Dose 50 MG; Start 02/05/19 at 18:00 Insulin Aspart (Novolog Insulin Pen) NOVOLOG *MILD* ALGORI... Q6 SC Last administered on 02/07/19 06:24; Admin Dose 1 UNIT; Start 02/06/19 at 00:00 Acetaminophen/ Hydrocodone Bitart ([place] (5/325)) 1 tab Q4H PRN PO MODERATE P AIN LEVEL 4-6 Last administered on 02/07/19 17:05; Admin Dose 1 TAB; Start 02/06/19 at 13:30 Docusate Sodium (Colace) 100 mg BID PO Last administered on 02/07/19 08:45; Admin Dose 100 MG; Start 02/06/19 at 21:00 Gabapentin (Neurontin) 100 mg TID PO ; Start 02/07/19 at 21:00 PAIGE BECKMAN Feb 07, 2019 17:15
[2019-02-07] MEDS: traZODone 50 MG TAB PO SCH (20:54)
[2019-02-07] MEDS: GABAPENTIN 100 MG CAP PO SCH (20:54)
[2019-02-07] MEDS: ATORVASTATIN 20 MG TAB PO SCH (20:54)
[2019-02-08 00:29] VITALS: BP 140/72; PULSE 91; RESP 18
[2019-02-08] MEDS: ACCU-CHEK XX SCH (02:07)
[2019-02-08 04:15] VITALS: BP 139/83; PULSE 79; RESP 16
[2019-02-08] MEDS: BUMETANIDE 1 MG TAB PO SCH ×2 (05:50→17:21)
[2019-02-08] MEDS: INSULIN ASPART [NOVOLOG] 3 ML PEN SC SCH ×4 (07:25→21:28)
[2019-02-08 08:01] VITALS: BP 138/59; PULSE 73; RESP 22
[2019-02-08] MEDS: AMIODARONE 200 MG TAB PO SCH ×3 (08:23→21:10)
[2019-02-08] MEDS: PANTOPRAZOLE (EC) 40 MG TAB PO SCH (08:23)
[2019-02-08] MEDS: APIXABAN 5 MG TABLET PO SCH ×2 (08:24→21:10)
[2019-02-08] MEDS: GABAPENTIN 100 MG CAP PO SCH ×3 (08:24→21:11)
[2019-02-08] MEDS: DILTIAZEM (CD) 240 MG CAP PO SCH (08:24)
[2019-02-08] MEDS: DOCUSATE SODIUM 100 MG CAP PO SCH ×2 (08:25→21:10)
[2019-02-08] MEDS: FAMOTIDINE 20 MG INJ IV SCH (08:25)
[2019-02-08] MEDS: METOPROLOL (XL) 50 MG TAB PO SCH ×2 (08:25→21:00)
[2019-02-08] MEDS: FLUTICASONE/VILANTEROL 200-25 INH DEVICE INH SCH (08:28)
--- NOTE | 2019-02-08 08:58 | PN ---
DATE: 02/08/2019 SUBJECTIVE: The patient is stable, had hemodialysis yesterday and tolerated well. No other events n oted. OBJECTIVE: VITAL SIGNS: Blood pressure is 139/83, respiration 16, pulse 79, temperature 98.6. HEENT: Head is normocephalic. NECK: Supple. HEART: Regular rate. LUNGS: Show diminished breath sounds at the base. ABDOMEN: Soft, nontender to palpation without rebound or guarding. EXTREMITIES: Negative for clubbing, cyanosis, no edema. DERMATOLOGIC: No rashes. MUSCULOSKELETAL: No joint effusion. NEUROLOGIC: No change in exam. MEDICATIONS: Have been reviewed. LABORATORY DATA: Has been reviewed. IMAGING STUDIES: Have been reviewed. ASSESSMENT AND PLAN: 1. End-stage renal disease. The patient had hemodialysis yesterday, tolerated well. Plan for dialy sis again tomorrow. 2. Anemia. Monitor hemoglobin and hematocrit levels. Will continue Epogen as needed. 3. Mineral bone disorder. Monitor calcium and phosphorus levels. 4. Hypertension. Continue current blood pressure regimen. 5. Small-bowel obstruction, clinically improving. Continue to monitor. 6. History of chronic obstructive pulmonary disease. Continue medical management. 7. Dyslipidemia. Continue statin therapy. 8. Diabetes. Continue current insulin regimen. 9. History of atrial fibrillation. Dictated By: ALDAIR NAVARRO DO NR/NTS Conf#: [id number] DID#: [id number] CC: FABIANO EDMOND MD;*EndCC*
--- NOTE | 2019-02-08 11:34 | CONS ---
Consult Date/Type/Reason Admit Date/Time Feb 04, 2019 at 10:25 Initial Consult Date 02/04/19 Requesting Provider: FABIANO EDMOND Date/Time of Note DATE: 02/08/19 TIME: 11:33 Subjective NO acute events - pt stable - daily HD planned at this point - no CP now. ROS: No fever, no chills, no nausea, no vomiting, no diarrhea/constipation No recent weight changes No chest pain, no PND, no orthopnea - improved SOB No dizziness, blurred vision No thirst, no heat or cold intolerance Objective Vitals Vital Signs Date Temp Pulse Resp B/P (MAP) Pulse Ox O2 O2 Flow FiO2 Time Delivery Rate 02/08/19 98.0 73 22 138/59 96 Room Air 2.0 08:01 (85) Intake and Output 02/07/19 02/07/19 02/08/19 1515:00 23:00 07:00 IntakeIntake Total 440 ml 400 ml 240 ml OutputOutput Total 2500 ml BalanceBalance -2060 ml 400 ml 240 ml Exam General: WN/WD/NAD, AOx comfortable HEENT: Unicetric/atraumatic/EOMI (follow commands) NECK: JVD elevated, no thyromegaly Lymph: no lymphadenopathy HEART: irregular with no S3, II/ systolic murmur at apex, PMI L LUNGS: Coarse sounds ABD: soft, NT, ND, +BS : Intact Neuro: non focal SKIN: chronic changes EXT: 1+ edema Results/Medications Result Diagram: 02/07/19 0721 02/08/19 0619 Results 24 hrs Laboratory Tests Test 02/07/19 11:37 02/07/19 17:02 02/07/19 20:59 02/08/19 02:04 Bedside Glucose 101 123 143 101 Test 02/08/19 06:19 02/08/19 07:45 Sodium Level 140 Potassium Level 4.5 Chloride Level 102 Carbon Dioxide Level 29 Anion Gap 9 Blood Urea Nitrogen 26 #H Creatinine 4.43 #H Est Glomerular Filtrat Rate mL/min Glucose Level 97 Calcium Level 8.6 Bedside Glucose 95 Home Meds Reported Medications Amlodipine Besylate* (Amlodipine Besylate*) 10 Mg Tablet, 10 MG PO DAILY, #30 TAB 02/04/19 Metoprolol Succinate* (Toprol XL*) 50 Mg Tab.er.24h, 50 MG PO BID, #30 TAB 02/04/19 Trazodone Hcl* (Desyrel*) 50 Mg Tab, 50 MG PO QHS, #30 TAB 02/04/19 Pantoprazole* (Pantoprazole*) 40 Mg Tablet.dr, 40 MG PO AC BREAKFAST, TAB 02/04/19 Glimepiride* (Glimepiride*) 2 Mg Tablet, 1 MG PO WITH BREAKFAST, TAB 02/04/19 Diltiazem Hcl* (Diltiazem XT) 240 Mg Capsule.er, 240 MG PO DAILY, #30 CAP 02/04/19 Bumetanide* (Bumetanide*) 1 Mg Tablet, 1 MG PO BID, TAB 02/04/19 Apixaban* (Eliquis*) 2.5 Mg Tablet, 2.5 MG PO BID, TAB 02/04/19 Sucralfate* (Carafate*) 1 Gm Tab, 2 GM PO AC MEALS AND BEDTIME, TAB 02/04/19 Atorvastatin Calcium* (Atorvastatin Calcium*) 20 Mg Tablet, 20 MG PO QHS, #30 TAB 02/04/19 Budesonide-Formoterol Fumarate* (Symbicort*) 160-4.5 Hfa.aer.ad, 2 PUFF INHAL ATION BID, #1 EACH 02/04/19 Hydralazine Hcl* (Hydralazine Hcl*) 25 Mg Tab, 25 MG PO BID, #60 TAB 02/04/19 Discontinued Reported Medications Sucralfate* (Carafate*) 1 Gm Tab, 1 TAB ORAL QID 01/12/19 Ranitidine Hcl* (Ranitidine Hcl*) 300 Mg Tablet, 1 TAB ORAL DAILY 01/12/19 Hydralazine Hcl* (Hydralazine Hcl*) 25 Mg Tab, 1 TAB ORAL BID PRN for HTN 01/12/19 Atorvastatin Calcium (Atorvastatin Calcium) 20 Mg Tablet, 1 TAB ORAL QHS 01/12/19 Ibandronate Sodium* (Boniva*) 150 Mg Tablet, 150 MG PO Q7D, TAB 05/07/16 Trazodone Hcl* (Trazodone Hcl*) 50 Mg Tablet, 50 MG PO QHS, #30 TAB 05/07/16 Bumetanide* (Bumetanide*) 1 Mg Tablet, 1 MG PO BID, TAB 05/07/16 Glimepiride* (Glimepiride*) 2 Mg Tablet, 2 MG PO WITH BREAKFAST DINNE, TAB 05/07/16 Pioglitazone Hcl* (Actos*) 15 Mg Tablet, 15 MG PO DAILY, #30 TAB 05/07/16 Discontinued Scripts Apixaban* (Eliquis*) 2.5 Mg Tablet, 5 MG PO BID, #60 TAB 1 Refill Prov:ULYSSES LOVE MD 05/09/16 Metoprolol Tartrate* (Lopressor*) 25 Mg Tab, 12.5 MG PO BID, #60 TAB Prov:ULYSSES LOVE MD 05/09/16 Medications Current Medications Fluticasone/ Vilanterol (Breo Ellipta 200-25 Mcg Inh) 1 inh DAILY INH Last administered on 02/08/19at 08:28; Admin Dose 1 INH; Start 02/05/19 at 09:00 Diagnostic Test (Pha) (Accu-Chek) 1 ea 02 XX Last administered on 02/08/19at 02:07; Admin Dose 1 EA; Start 02/05/19 at 02:00 IV Flush (NS 3 ml) 3 ml PER PROTOCOL IV ; Start 02/04/19 at 15:00 Ondansetron HCl (Zofran Inj) 4 mg Q6H PRN IV NAUSEA/VOMITING; Start 02/04/19 at 15:00 Acetaminophen (Tylenol Supp) 650 mg Q6H PRN [place] .PAIN 1-3 OR TEMP; Start 02/04/19 at 15:00 Famotidine (Pepcid Iv) 20 mg DAILY IV Last administered on 02/08/19at 08:25; Admin Dose 20 MG; Start 02/04/19 at 15:00 Levalbuterol (Xopenex Neb) 1.25 mg Q4H RESP THERAPY PRN HHN spb/wheezing; Start 02/04/19 at 15:00 Ipratropium [place] (Atrovent 0.02% (Neb)) 0.5 mg Q4H RESP THERAPY PRN HHN wheezing/sob; Start 02/04/19 at 15:00 Miscellaneous Information 1 ea NOTE XX ; Start 02/04/19 at 15:00 Glucose (Glutose) 15 gm Q15M PRN PO DECREASED GLUCOSE; Start 02/04/19 at 15:00 Glucose (Glutose) 22.5 gm Q15M PRN PO DECREASED GLUCOSE; Start 02/04/19 at 15:00 Dextrose (D50w Syringe) 25 ml Q15M PRN IV DECREASED GLUCOSE; Start 02/04/19 at 15:00 Dextrose (D50w Syringe) 50 ml Q15M PRN IV DECREASED GLUCOSE; Start 02/04/19 at 15:00 Glucagon (Glucagen) 1 mg Q15M PRN IM DECREASED GLUCOSE; Start 02/04/19 at 15:00 Glucose (Glutose) 15 gm Q15M PRN BUCCAL DECREASED GLUCOSE; Start 02/04/19 at 15:00 Hydralazine HCl (Apresoline) 10 mg Q6H PRN IV sbp>160 Last administered on 02/05/19at 12:54; Admin Dose 10 MG; Start 02/04/19 at 15:30 Labetalol HCl (Labetalol) 10 mg Q4H PRN IV sbp >160; Start 02/05/19 at 09:00 Amiodarone HCl (Cordarone) 400 mg TID PO Last administered on 02/08/19 08:23; Admin Dose 400 MG; Start 02/05/19 at 21:00 Amlodipine Besylate (Norvasc) 10 mg DAILY PO Last administered on 02/06/19 08:49; Admin Dose 10 MG; Start 02/06/19 at 09:00; Status Hold Atorvastatin Calcium (Lipitor) 20 mg QHS PO Last administered on 02/07/19 20:54; Admin Dose 20 MG; Start 02/05/19 at 21:00 Bumetanide (Bumex) 1 mg BID DIURETICS PO Last administered on 02/08/19 05:50; Admin Dose 1 MG; Start 02/05/19 at 18:00 Diltiazem HCl (Cardizem Cd) 240 mg DAILY PO Last administered on 02/08/19 08:24; Admin Dose 240 MG; Start 02/06/19 at 09:00 Hydralazine HCl (Apresoline) 25 mg BID PO Last administered on 02/08/19 08:24; Admin Dose 25 MG; Start 02/05/19 at 21:00 Pantoprazole (Protonix Tab) 40 mg AC BREAKFAST PO Last administered on 02/08/19 08:23; Admin Dose 40 MG; Start 02/06/19 at 07:25 Trazodone HCl (Desyrel) 50 mg QHS PO Last administered on 02/07/19 20:54; Admin Dose 50 MG; Start 02/05/19 at 21:00 Apixaban (Eliquis) 2.5 mg BID PO Last administered on 02/08/19 08:24; Admin Dose 2.5 MG; Start 02/05/19 at 21:00 Metoprolol Succinate (Toprol Xl) 50 mg BID PO Last administered on 02/08/19 08:25; Admin Dose 50 MG; Start 02/05/19 at 18:00 Acetaminophen/ Hydrocodone Bitart ([place] (5/325)) 1 tab Q4H PRN PO MODERATE PAIN LEVEL 4-6 Last administered on 02/07/19 21:05; Admin Dose 1 TAB; Start 02/06/19 at 13:30 Docusate Sodium (Colace) 100 mg BID PO Last administered on 02/08/19 08:25; Admin Dose 100 MG; Start 02/06/19 at 21:00 Gabapentin (Neurontin) 100 mg TID PO Last administered on 02/08/19 08:24; Admin Dose 100 MG; Start 02/07/19 at 21:00 Insulin Aspart (Novolog Insulin Pen) NOVOLOG *MILD* ALGORI... AC MEALS AND BEDTIME SC Last administered on 02/07/19 21:09; Admin Dose 1 UNIT; Start 02/07/19 at 21:00 Assessment/Plan Hospital Course (Demo Recall) 1. A. fib - rate controlled in 80s now - resumne anti-coagultio now with Eliquis - rate controlled. 2. Anemia. Monitor hemoglobin and hematocrit levels. Will give Epogen as needed. H/H stable. 3. Mineral bone disorder. Monitor calcium and phosphorus levels. 4. Hypertension. Continue current blood pressure regimen. Better now. Impro surjit. 5. Small-bowel obstruction. The patient is clinically improving. Nasogastric tube removed. Passing gas. Continue to monitor. NO surgery planned. 6. History of chronic obstructive pulmonary disease. Continue nebulizers as needed. 7. Dyslipidemia. Continue statin therapy. 8. Diabetes. Continue current insulin regimen. 9. ESRD - HD to follow - daily per Dr. Cote [place]. HANS LEE MD Feb 08, 2019 11:34
[2019-02-08 12:08] VITALS: BP 120/56; PULSE 67; RESP 22
--- NOTE | 2019-02-08 13:33 | PN ---
Date/Time of Note Date/Time of Note DATE: 02/08/19 TIME: 13:31 Assessment/Plan VTE Prophylaxis Risk score (from Nsg)>0 risk: 4 SCD applied (from Ns): Yes Pharmacological prophylaxis: apixaban Lines/Catheters IV Catheter Type (from Nrsg): Peripheral IV Urinary Cath still in place: No Assessment/Plan Assessment/Plan 1. Partial SBO, resolved 2. ESRD, DD, HD tomorrow 3. Diabetic encephalopathy, on neurontin 4. Normocytic anemia, CKD related, on epogen 5. DM, stable 6. HTN, controlled 7. Atrial fibrillation, on eliquis 8. COPD, stable 9. Dyslipidemia, on statin 10. DVT prophylaxis: Eliquis 11. Plan to discharge tomorrow after HD Result Diagram: 02/07/19 0721 02/08/1919 Results 24hrs Laboratory Tests Test 02/07/19 17:02 02/07/19 20:59 02/08/19 02:04 02/08/19 06:19 Bedside Glucose 123 143 101 Sodium Level 140 Potassium Level 4.5 Chloride Level 102 Carbon Dioxide Level 29 Anion Gap 9 Blood Urea Nitrogen 26 #H Creatinine 4.43 #H Est Glomerular Filtrat Rate mL/min Glucose Level 97 Calcium Level 8.6 Test 02/08/19 07:45 02/08/19 11:51 Bedside Glucose 95 115 Subjective 24 Hr Interval Summary Free Text/Dictation no shortness of breath, less pain on feet Exam/Review of Systems Exam Vitals Vital Signs Date Temp Pulse Resp B/P (MAP) Pulse Ox O2 O2 Flow FiO2 Time Delivery Rate 02/08/19 97.8 67 22 120/56 96 Nasal 12:08 (77) Cannula 02/08/19 2.0 08:01 Intake and Output 02/07/19 02/07/19 02/08/19 1515:00 23:00 07:00 IntakeIntake Total 440 ml 400 ml 240 ml OutputOutput Total 2500 ml BalanceBalance -2060 ml 400 ml 240 ml Constitutional: alert, oriented, well developed Psych: no complaints, nl mood/affect Head: normocephalic, atraumatic Eyes: nl conjunctiva, EOMI, nl lids ENMT: nl external ears & nose, nl lips & teeth, nl nasal mucosa & septum Neck: supple, non-tender Respiratory: clear to auscultation, normal air movement; No congested cough, No crackles/rales, No diminished breath sounds, No intercostal retraction, No labored breathing, No respirations, No tactile fremitus, No wheezing, No other Cardiovascular: nl pulses, irregular rhythm Gastrointestinal: soft, nl liver, spleen, non-tender Musculoskeletal: nl extremities to inspection Extremities: normal pulses; No calf tenderness, No cyanosis, No clubbing, No edema, No pitting pedal ed radha, No palpable cord, No tenderness, No other Neurological: CR[employer]ISK ASSOCIATE II-XII intact, nl mental status, nl speech, nl strength Results Results 24hrs Laboratory Tests Test 02/07/19 17:02 02/07/19 20:59 02/08/19 02:04 02/08/19 06:19 Bedside Glucose 123 143 101 Sodium Level 140 Potassium Level 4.5 Chloride Level 102 Carbon Dioxide Level 29 Anion Gap 9 Blood Urea Nitrogen 26 #H Creatinine 4.43 #H Est Glomerular Filtrat Rate mL/min Glucose Level 97 Calcium Level 8.6 Test 02/08/19 07:45 02/08/19 11:51 Bedside Glucose 95 115 Medications Medication Current Medications Fluticasone/ Vilanterol (Breo Ellipta 200-25 Mcg Inh) 1 inh DAILY INH Last administered on 02/08/19at 08:28; Admin Dose 1 INH; Start 02/05/19 at 09:00 Diagnostic Test (Pha) (Accu-Chek) 1 ea 02 XX Last administered on 02/08/19at 02:07; Admin Dose 1 EA; Start 02/05/19 at 02:00 IV Flush (NS 3 ml) 3 ml PER PROTOCOL IV ; Start 02/04/19 at 15:00 Ondansetron HCl (Zofran Inj) 4 mg Q6H PRN IV NAUSEA/VOMITING; Start 02/04/19 at 15:00 Acetaminophen (Tylenol Supp) 650 mg Q6H PRN [place] .PAIN 1-3 OR TEMP; Start 02/04/19 at 15:00 Famotidine (Pepcid Iv) 20 mg DAILY IV Last administered on 02/08/19at 08:25; Admin Dose 20 MG; Start 02/04/19 at 15:00 Levalbuterol (Xopenex Neb) 1.25 mg Q4H RESP THERAPY PRN HHN spb/wheezing; Start 02/04/19 at 15:00 Ipratropium [place] (Atrovent 0.02% (Neb)) 0.5 mg Q4H RESP THERAPY PRN HHN wheezing/sob; Start 02/04/19 at 15:00 Miscellaneous Information 1 ea NOTE XX ; Start 02/04/19 at 15:00 Glucose (Glutose) 15 gm Q15M PRN PO DECREASED GLUCOSE; Start 02/04/19 at 15:00 Glucose (Glutose) 22.5 gm Q15M PRN PO DECREASED GLUCOSE; Start 02/04/19 at 15:00 Dextrose (D50w Syringe) 25 ml Q15M PRN IV DECREASED GLUCOSE; Start 02/04/19 at 15:00 Dextrose (D50w Syringe) 50 ml Q15M PRN IV DECREASED GLUCOSE; Start 02/04/19 at 15:00 Glucagon (Glucagen) 1 mg Q15M PRN IM DECREASED GLUCOSE; Start 02/04/19 at 15:00 Glucose (Glutose) 15 gm Q15M PRN BUCCAL DECREASED GLUCOSE; Start 02/04/19 at 15:00 Hydralazine HCl (Apresoline) 10 mg Q6H PRN IV sbp>160 Last administered on 02/05/19at 12:54; Admin Dose 10 MG; Start 02/04/19 at 15:30 Labetalol HCl (Labetalol) 10 mg Q4H PRN IV sbp >160; Start 02/05/19 at 09:00 Amiodarone HCl (Cordarone) 400 mg TID PO Last administered on 02/08/19at 12:35; Admin Dose 400 MG; Start 02/05/19 at 21:00 Amlodipine Besylate (Norvasc) 10 mg DAILY PO Last administered on 02/06/19at 08:49; Admin Dose 10 MG; Start 02/06/19 at 09:00; Status Hold Atorvastatin Calcium (Lipitor) 20 mg QHS PO Last administered on 02/07/19at 20:54; Admin Dose 20 MG; Start 02/05/19 at 21:00 Bumetanide (Bumex) 1 mg BID DIURETICS PO Last administered on 02/08/19at 05:50; Admin Dose 1 MG; Start 02/05/19 at 18:00 Diltiazem HCl (Cardizem Cd) 240 mg DAILY PO Last administered on 02/08/19 08:24; Admin Dose 240 MG; Start 02/06/19 at 09:00 Hydralazine HCl (Apresoline) 25 mg BID PO Last administered on 02/08/19 08:24; Admin Dose 25 MG; Start 02/05/19 at 21:00 Pantoprazole (Protonix Tab) 40 mg AC BREAKFAST PO Last administered on 02/08/19 08:23; Admin Dose 40 MG; Start 02/06/19 at 07:25 Trazodone HCl (Desyrel) 50 mg QHS PO Last administered on 02/07/19 20:54; Admin Dose 50 MG; Start 02/05/19 at 21:00 Apixaban (Eliquis) 2.5 mg BID PO Last administered on 02/08/19 08:24; Admin Dose 2.5 MG; Start 02/05/19 at 21:00 Metoprolol Succinate (Toprol Xl) 50 mg BID PO Last administered on 02/08/19 08:25; Admin Dose 50 MG; Start 02/05/19 at 18:00 Acetaminophen/ Hydrocodone Bitart ([place] (5/325)) 1 tab Q4H PRN PO MODERATE P AIN LEVEL 4-6 Last administered on 02/07/19 21:05; Admin Dose 1 TAB; Start 02/06/19 at 13:30 Docusate Sodium (Colace) 100 mg BID PO Last administered on 02/08/19 08:25; Admin Dose 100 MG; Start 02/06/19 at 21:00 Gabapentin (Neurontin) 100 mg TID PO Last administered on 02/08/19 12:35; Admin Dose 100 MG; Start 02/07/19 at 21:00 Insulin Aspart (Novolog Insulin Pen) NOVOLOG *MILD* ALGORI... AC MEALS AND BEDTIME SC Last administered on 02/07/19 21:09; Admin Dose 1 UNIT; Start 02/07/19 at 21:00 FOSTER OWEN MD Feb 08, 2019 13:33
[2019-02-08 16:11] VITALS: BP 116/59; PULSE 60; RESP 22
[2019-02-08 20:04] VITALS: BP 91/54; PULSE 70; RESP 20
[2019-02-08] MEDS: ATORVASTATIN 20 MG TAB PO SCH (21:10)
[2019-02-08] MEDS: traZODone 50 MG TAB PO SCH (21:11)
[2019-02-09] VITALS (19 sets, daily range): BP systolic 112–156; BP diastolic 33–75; PULSE 56–87; RESP 14–20
[2019-02-09] MEDS: ACCU-CHEK XX SCH (02:07)
[2019-02-09] MEDS: BUMETANIDE 1 MG TAB PO SCH ×2 (05:16→16:59)
[2019-02-09] MEDS: INSULIN ASPART [NOVOLOG] 3 ML PEN SC SCH ×3 (07:25→17:20)
[2019-02-09] MEDS: PANTOPRAZOLE (EC) 40 MG TAB PO SCH (08:03)
[2019-02-09] MEDS: APIXABAN 5 MG TABLET PO SCH (08:03)
[2019-02-09] MEDS: GABAPENTIN 100 MG CAP PO SCH ×2 (08:03→12:36)
[2019-02-09] MEDS: DOCUSATE SODIUM 100 MG CAP PO SCH (08:03)
--- NOTE | 2019-02-09 08:03 | PN ---
DATE: 02/09/2019 SUBJECTIVE: The patient is stable. No events overnight. Patient scheduled for hemodialysis today. OBJECTIVE: VITAL SIGNS: Blood pressure 125/57, pulse 68, respirations 17, temperature 98.2. HEENT: Head is normocephalic. NECK: Supple. HEART: Regular rate. LUNGS: Show diminished breath sounds at the base. ABDOMEN: Soft, nontender to palpation without rebound or guarding. EXTREMITIES: Negative for clubbing, cyanosis, no edema. DERMATOLOGIC: No rashes. MUSCULOSKELETAL: No joint effusion. NEUROLOGIC: No change in exam. MEDICATIONS: Have been reviewed. LABORATORY DATA: Have been reviewed. IMAGING STUDIES: Have been reviewed. ASSESSMENT AND PLAN: 1. End-stage renal disease. Plan for hemodialysis today. 2. Hyperkalemia. The patient will be dialyzed on a low potassium bath. 3. Mineral bone disorder. Monitor calcium and phosphorus levels. 4. Hypertension. Continue current blood pressure regimen. 5. Small bowel obstruction, improving. Continue to monitor. 6. History of chronic obstructive pulmonary disease. Continue medical management. 7. Dyslipidemia. Continue statin therapy. 8. Diabetes. Continue current insulin regimen. 9. History of atrial fibrillation. Dictated By: ALDAIR NAVARRO DO NR/NTS Conf#: [id number] DID#: [id number] CC: FABIANO EDMOND MD;*EndCC*
[2019-02-09] MEDS: AMIODARONE 200 MG TAB PO SCH ×2 (08:04→11:40)
[2019-02-09] MEDS: DILTIAZEM (CD) 240 MG CAP PO SCH (08:04)
[2019-02-09] MEDS: METOPROLOL (XL) 50 MG TAB PO SCH (08:04)
[2019-02-09] MEDS: FLUTICASONE/VILANTEROL 200-25 INH DEVICE INH SCH (08:04)
[2019-02-09] MEDS ORDERED: FAMOTIDINE 20 MG TAB PO SCH (09:00)
--- NOTE | 2019-02-09 14:13 | CONS ---
Assessment/Plan Assessment/Plan Hospital Course (Demo Recall) IMP: 1.AF-rate controlled with some intermittent salo 2.HTN 3.cad 4.ESRD on HD 5. anemia 6.Dyslipidemia Recc: -Tele -serial ecg's -Continue dilt but will decarse dose of toprol to 25 BID from 50 BID given episodes of intermittent salo -Continue hydralazine s/p d/c of norvasc as second CCB -Continue amiodarone for now but will decrease dose and if remains i AF will likley just d/c -Continue eliquis and follow HR/rhythm closely -HD for volume removal ongoing today Consultation Date/Type/Reason Admit Date/Time Feb 04, 2019 at 10:25 Initial Consult Date 02/04/19 Type of Consult Cardiology Reason for Consultation AF Requesting Provider: FABIANO EDMOND Date/Time of Note DATE: 02/09/19 TIME: 14:09 Exam/Review of Systems Vital Signs Vitals Vital Signs Date Temp Pulse Resp B/P (MAP) Pulse Ox O2 O2 Flow FiO2 Time Delivery Rate 02/09/19 98.4 87 16 156/68 96 Nasal 13:04 (97) Cannula 02/09/19 2.0 07:32 Intake and Output 02/08/19 02/08/19 02/09/19 1515:00 23:00 07:00 IntakeIntake Total 530 ml OutputOutput Total 4 ml 1 ml BalanceBalance 526 ml -1 ml Exam Exam Review of Systems: CONSTITUTIONAL: No fevers, chills. PULMONARY: No sob CARDIOVASCULAR: No chest pain/palpitations GASTROINTESTINAL: No nausea/vomiting. GENITOURINARY: No hematuria/dysuria. MUSCULOSKELETAL: No myagias/arthalgias. PSYCHIATRIC: The patient denies depression. NEUROLOGIC: No weakness Constitutional: other (sleeping) Psych: no complaints Head: normocephalic ENMT: mucosa pink and moist Neck: supple, jvd (9 cm water) Respiratory: diminished breath sounds (at bases/B) Cardiovascular: irregular rhythm Gastrointestinal: soft, non-tender Musculoskeletal: muscle tone (normal) Extremities: edema (none) Neurological: other (No focal deficits) Labs Result Diagram: 02/07/19 0721 02/09/19 0551 Results 24hrs Laboratory Tests Test 02/08/19 17:21 02/08/19 21:14 02/09/19 02:02 02/09/19 05:51 Bedside Glucose 126 156 125 Sodium Level 138 Potassium Level 5.4 H Chloride Level 101 Carbon Dioxide Level 28 Anion Gap 9 Blood Urea Nitrogen 46 #H Creatinine 6.40 H Est Glomerular Filtrat Rate mL/min Glucose Level 123 Calcium Level 8.5 Test 02/09/19 08:03 02/09/19 12:36 Bedside Glucose 110 116 Medications Medications Current Medications Fluticasone/ Vilanterol (Breo Ellipta 200-25 Mcg Inh) 1 inh DAILY INH Last administered on 02/09/19at 08:04; Admin Dose 1 INH; Start 02/05/19 at 09:00 Diagnostic Test (Pha) (Accu-Chek) 1 ea 02 XX Last administered on 02/09/19at 02:07; Admin Dose 1 EA; Start 02/05/19 at 02:00 IV Flush (NS 3 ml) 3 ml PER PROTOCOL IV ; Start 02/04/19 at 15:00 Ondansetron HCl (Zofran Inj) 4 mg Q6H PRN IV NAUSEA/VOMITING; Start 02/04/19 at 15:00 Acetaminophen (Tylenol Supp) 650 mg Q6H PRN [place] .PAIN 1-3 OR TEMP; Start 02/04/19 at 15:00 Levalbuterol (Xopenex Neb) 1.25 mg Q4H RESP THERAPY PRN HHN spb/wheezing; Start 02/04/19 at 15:00 Ipratropium [place] (Atrovent 0.02% (Neb)) 0.5 mg Q4H RESP THERAPY PRN HHN wheezing/sob; Start 02/04/19 at 15:00 Miscellaneous Information 1 ea NOTE XX ; Start 02/04/19 at 15:00 Glucose (Glutose) 15 gm Q15M PRN PO DECREASED GLUCOSE; Start 02/04/19 at 15:00 Glucose (Glutose) 22.5 gm Q15M PRN PO DECREASED GLUCOSE; Start 02/04/19 at 15:00 Dextrose (D50w Syringe) 25 ml Q15M PRN IV DECREASED GLUCOSE; Start 02/04/19 at 15:00 Dextrose (D50w Syringe) 50 ml Q15M PRN IV DECREASED GLUCOSE; Start 02/04/19 at 15:00 Glucagon (Glucagen) 1 mg Q15M PRN IM DECREASED GLUCOSE; Start 02/04/19 at 15:00 Glucose (Glutose) 15 gm Q15M PRN BUCCAL DECREASED GLUCOSE; Start 02/04/19 at 15:00 Hydralazine HCl (Apresoline) 10 mg Q6H PRN IV sbp>160 Last administered on 02/05/19at 12:54; Admin Dose 10 MG; Start 02/04/19 at 15:30 Labetalol HCl (Labetalol) 10 mg Q4H PRN IV sbp >160; Start 02/05/19 at 09:00 Amiodarone HCl (Cordarone) 400 mg TID PO Last administered on 02/08/19 21:10; Admin Dose 400 MG; Start 02/05/19 at 21:00 Atorvastatin Calcium (Lipitor) 20 mg QHS PO Last administered on 02/08/19 21:10; Admin Dose 20 MG; Start 02/05/19 at 21:00 Bumetanide (Bumex) 1 mg BID DIURETICS PO Last administered on 02/09/19 05:16; Admin Dose 1 MG; Start 02/05/19 at 18:00 Diltiazem HCl (Cardizem Cd) 240 mg DAILY PO Last administered on 02/08/19 08:24; Admin Dose 240 MG; Start 02/06/19 at 09:00 Hydralazine HCl (Apresoline) 25 mg BID PO Last administered on 02/08/19 08:24; Admin Dose 25 MG; Start 02/05/19 at 21:00 Pantoprazole (Protonix Tab) 40 mg AC BREAKFAST PO Last administered on 02/09/19 08:03; Admin Dose 40 MG; Start 02/06/19 at 07:25 Trazodone HCl (Desyrel) 50 mg QHS PO Last administered on 02/08/19 21:11; Admin Dose 50 MG; Start 02/05/19 at 21:00 Apixaban (Eliquis) 2.5 mg BID PO Last administered on 02/09/19 08:03; Admin Dose 2.5 MG; Start 02/05/19 at 21:00 Metoprolol Succinate (Toprol Xl) 50 mg BID PO Last administered on 02/08/19 08:25; Admin Dose 50 MG; Start 02/05/19 at 18:00 Acetaminophen/ Hydrocodone Bitart ([place] (5/325)) 1 tab Q4H PRN PO MODERATE PAIN LEVEL 4-6 Last administered on 02/07/19 21:05; Admin Dose 1 TAB; Start 02/06/19 at 13:30 Docusate Sodium (Colace) 100 mg BID PO Last administered on 02/09/19 08:03; Admin Dose 100 MG; Start 02/06/19 at 21:00 Gabapentin (Neurontin) 100 mg TID PO Last administered on 02/09/19at 12:36; Ad min Dose 100 MG; Start 02/07/19 at 21:00 Insulin Aspart (Novolog Insulin Pen) NOVOLOG *MILD* ALGORI... AC MEALS AND BEDTIME SC Last administered on 02/08/19at 21:28; Admin Dose 1 UNIT; Start 02/07/19 at 21:00 Famotidine (Pepcid) 20 mg DAILY PO Last administered on 02/09/19 09:17; Admin Dose 20 MG; Start 02/09/19 at 09:00 PAIGE BECKMAN Feb 09, 2019 14:13
[2019-02-09] MEDS ORDERED: AMIO200T4 PO (16:46)
[2019-02-09] MEDS ORDERED: DOCU-144 PO (16:46)
[2019-02-09] MEDS ORDERED: METO-335 PO (16:46)
[2019-02-09] MEDS ORDERED: GABA100C14 PO (16:49)
--- NOTE | 2019-02-09 16:54 | DS ---
Date/Time of Note Date/Time of Note DATE: 02/09/19 TIME: 16:48 Discharge Summary Admission/Discharge Info Admit Date/Time Feb 04, 2019 at 10:25 Discharge Date/Time Discharge Diagnosis 1. Partial SBO, resolved 2. ESRD, DD, HD per nephrology 3. Diabetic encephalopathy, on neurontin 4. Normocytic anemia, CKD related, follow upo with nephrology 5. DM, stable 6. HTN, controlled 7. Atrial fibrillation, controlled VR, on eliquis 8. COPD, stable 9. Dyslipidemia, on statin Patient Condition: Stable Hospital Course This is a 78-year-old Colombian-speaking female with a history of ESRD on hemodialysis MWF, left AV fistula, atrial fibrillation, diabetes, copd,hypertension, hyperlipidemia, prior abdominal surgeries, was brought into the emergency room with severe abdominal pain associated with multiple episodes of nonbilious/nonbloody vomiting and inability to have a bowel movement x24 hours duration. Apparently, patient was discharged about a month ago from [facility] for acute respiratory failure with volume overload requiring few additional HD sessions.She has been having recurrent SBO. Patient denied chest pain, palpitation, shortness of breath, loss of consciousness, dizziness, headache, numbness, tingling, fever, chills, diarrhea or other constitutional symptoms. In the emergency room, patient was noted with lab hemoglobin 10.1, hematocrit 32.1, BUN 34, creatinine 5.73. Patient's CT abdomen showed moderately dilated fluid-filled small bowel loops in the mid abdomen likely due to anterior abdominal adhesions from prior abdominal surgery. Increased small bowel dilatation since prior exam consistent with early or partial small bowel obstruction. Surgical consultation was called from the emergency room who recommended KUB in a.m. For small bowel obstruction, patient was treated with NG tube low suction, IVF, SBO resolved. Patient tolerates diet well. Patient has pain on both foot from diabetic neuropathy that improves with neurontin. Home Meds Active Scripts Docusate Sodium* (Colace*) 100 Mg Capsule, 100 MG PO Q24H PRN for CONSTIPATION, #30 CAP Prov:FOSTER OWEN MD 02/09/19 Metoprolol Succinate* (Toprol XL*) 25 Mg Tab.sr.24h, 25 MG PO BID for 30 Days Prov:FOSTER OWEN MD 02/09/19 Amiodarone Hcl* (Amiodarone Hcl*) 200 Mg Tablet, 200 MG PO DAILY for 30 Days, TAB Prov:FOSTER OWEN MD 02/09/19 Reported Medications Trazodone Hcl* (Desyrel*) 50 Mg Tab, 50 MG PO QHS, #30 TAB 02/04/19 Pantoprazole* (Pantoprazole*) 40 Mg Tablet.dr, 40 MG PO AC BREAKFAST, TAB 02/04/19 Glimepiride* (Glimepiride*) 2 Mg Tablet, 1 MG PO WITH BREAKFAST, TAB 02/04/19 Diltiazem Hcl* (Diltiazem XT) 240 Mg Capsule.er, 240 MG PO DAILY, #30 CAP 02/04/19 Bumetanide* (Bumetanide*) 1 Mg Tablet, 1 MG PO BID, TAB 02/04/19 Apixaban* (Eliquis*) 2.5 Mg Tablet, 2.5 MG PO BID, TAB 02/04/19 Sucralfate* (Carafate*) 1 Gm Tab, 2 GM PO AC MEALS AND BEDTIME, TAB 02/04/19 Atorvastatin Calcium* (Atorvastatin Calcium*) 20 Mg Tablet, 20 MG PO QHS, #30 TAB 02/04/19 Budesonide-Formoterol Fumarate* (Symbicort*) 160-4.5 Hfa.aer.ad, 2 PUFF INHALATION BID, #1 EACH 02/04/19 Hydralazine Hcl* (Hydralazine Hcl*) 25 Mg Tab, 25 MG PO BID, #60 TAB 02/04/19 Discontinued Reported Medications Amlodipine Besylate* (Amlodipine Besylate*) 10 Mg Tablet, 10 MG PO DAILY, #30 TAB 02/04/19 Metoprolol Succinate* (Toprol XL*) 50 Mg Tab.er.24h, 50 MG PO BID, #30 TAB 02/04/19 Sucralfate* (Carafate*) 1 Gm Tab, 1 TAB ORAL QID 01/12/19 Ranitidine Hcl* (Ranitidine Hcl*) 300 Mg Tablet, 1 TAB ORAL DAILY 01/12/19 Hydralazine Hcl* (Hydralazine Hcl*) 25 Mg Tab, 1 TAB ORAL BID PRN for HTN 01/12/19 Atorvastatin Calcium (Atorvastatin Calcium) 20 Mg Tablet, 1 TAB ORAL QHS 01/12/19 Ibandronate Sodium* (Boniva*) 150 Mg Tablet, 150 MG PO Q7D, TAB 05/07/16 Trazodone Hcl* (Trazodone Hcl*) 50 Mg Tablet, 50 MG PO QHS, #30 TAB 05/07/16 Bumetanide* (Bumetanide*) 1 Mg Tablet, 1 MG PO BID, TAB 05/07/16 Glimepiride* (Glimepiride*) 2 Mg Tablet, 2 MG PO WITH BREAKFAST DINNE, TAB 05/07/16 Pioglitazone Hcl* (Actos*) 15 Mg Tablet, 15 MG PO DAILY, #30 TAB 05/07/16 Discontinued Scripts Apixaban* (Eliquis*) 2.5 Mg Tablet, 5 MG PO BID, #60 TAB 1 Refill Prov:ULYSSES LOVE MD 05/09/16 Metoprolol Tartrate* (Lopressor*) 25 Mg Tab, 12.5 MG PO BID, #60 TAB Prov:ULYSSES LOVE MD 05/09/16 Follow-up Plan PCP, cardiology and nephrology in one week Primary Care Provider Care Physician No Primary Pending Labs Laboratory Tests Test 02/08/19 17:21 02/08/19 21:14 02/09/19 02:02 02/09/19 05:51 Bedside 126 156 125 Glucose mg/dL (70-220) mg/dL (70-220) mg/dL (70-220) Sodium Level 138 mmol/L (135-14 4) Potassium 5.4 Level mmol/L (3.5-5. 1) Chloride Level 101 mmol/L (97-110 ) Carbon Dioxide 28 Level mmol/L (21-31) Anion Gap 9 (5-13) Blood Urea 46 Nitrogen mg/dl (7-20) Creatinine 6.40 mg/dl (0.44-1. 00) Est Glomerular mL/min (>60) Filtrat Rate mL/min Glucose Level 123 mg/dl (70-220) Calcium Level 8.5 mg/dl (8.4-10. 2) Test 02/09/19 08:03 02/09/19 12:36 Bedside 110 116 Glucose mg/dL (70-220) mg/dL (70-220) FOSTER OWEN MD Feb 09, 2019 16:53
[2019-02-09] MEDS ORDERED: AMIODARONE 200 MG TAB PO SCH (21:00)
[2019-02-09] MEDS ORDERED: METOPROLOL (XL) 25 MG TAB PO SCH (21:00)
== END 2019-02-09 18:35 | disposition home or self-care (01) | DRG 388 ==
LOC: E/R 07:35 → 2NE 10:25 → EDBEDREQ 10:55 → TEL 17:16
PROVIDERS: ADMIT Internal Medicine; ATTEND Internal Medicine
PROC: 5A1D70Z Performance of Urinary Filtration, Intermittent, Less than 6 Hours Per Day (ICD-10-PCS; principal; 2019-02-06)
DX: K56.51 Intestinal adhesions [bands], with partial obstruction (principal); N18.6 End stage renal disease; I12.0 Hypertensive chronic kidney disease with stage 5 chronic kidney disease or end stage renal disease; G93.49 Other encephalopathy; E11.69 Type 2 diabetes mellitus with other specified complication; E11.22 Type 2 diabetes mellitus with diabetic chronic kidney disease; Z99.2 Dependence on renal dialysis; E66.9 Obesity, unspecified; Z68.31 Body mass index [BMI] 31.0-31.9, adult; E78.5 Hyperlipidemia, unspecified; I48.0 Paroxysmal atrial fibrillation; J44.9 Chronic obstructive pulmonary disease, unspecified; D63.1 Anemia in chronic kidney disease; M79.672 Pain in left foot; M79.671 Pain in right foot; Z79.01 Long term (current) use of anticoagulants; Z79.84 Long term (current) use of oral hypoglycemic drugs
CPT/HCPCS: 36415; 71045; 73630; 74018; 74176; 80048; 80053; 80061; 82962; 83036; 83605; 83690; 83735; 84100; 84484; 84560; 85025; 85610; 90935; 93005; 93922; 93970; 96374; 96375; J0360; J1815; J2270; J2405; J7030

== ENCOUNTER 2019-02-15 13:10 | Inpatient (IN) | payer OTHER ==
[~2019-02-15] VITALS: Ht 154.9 cm; Wt 75.2 kg
[~2019-02-15 13:10] MED LIST changes: +AMIO200T4 PO; +ATOR20TA38 PO; -ATOR20TA65 ORAL; +BUDE6HFA INHALATION; +DILT240C98 PO; +DOCU-144 PO; +GABA100C14 PO; -HYDR-3671 ORAL; +HYDR-3671 PO; -IBAN150T7 PO; +METO-335 PO; -METO-448 PO; +PANT40TA4 PO; -PIOG15TA12 PO; -RANI300T ORAL; -SUCR1TAB56 ORAL; +SUCR1TAB56 PO; -TRAZ-111 PO; +TRAZ-149 PO
--- NOTE | 2019-02-15 16:41 | ERD ---
ER Documentation Chief Complaint Chief Complaint sob , feels her throat numbness x 1 week HPI 79-year-old female presenting with complaints of 1 week of worsening shortness of breath at rest. She also complains of orthopnea and chest pressure. She does have shortness of breath with exertion at baseline but not usually at rest. No fevers or chills. No cough or hemoptysis. She does get dialysis regularly and her last dialysis was yesterday. ROS All systems reviewed and are negative except as per history of present illness. Medications Home Meds Active Scripts Gabapentin* (Gabapentin*) 100 Mg Capsule, 100 MG PO TID for 30 Days, CAP Prov:FOSTER OWEN MD 02/09/19 Docusate Sodium* (Colace*) 100 Mg Capsule, 100 MG PO Q24H PRN for CONSTIPATION, #30 CAP Prov:FOSTER OWEN MD 02/09/19 Metoprolol Succinate* (Toprol XL*) 25 Mg Tab.sr.24h, 25 MG PO BID for 30 Days Prov:FOSTER OWEN MD 02/09/19 Amiodarone Hcl* (Amiodarone Hcl*) 200 Mg Tablet, 200 MG PO DAILY for 30 Days, TAB Prov:FOSTER OWEN MD 02/09/19 Reported Medications Trazodone Hcl* (Desyrel*) 50 Mg Tab, 50 MG PO QHS, #30 TAB 02/04/19 Pantoprazole* (Pantoprazole*) 40 Mg Tablet.dr, 40 MG PO AC BREAKFAST, TAB 02/04/19 Glimepiride* (Glimepiride*) 2 Mg Tablet, 1 MG PO WITH BREAKFAST, TAB 02/04/19 Diltiazem Hcl* (Diltiazem XT) 240 Mg Capsule.er, 240 MG PO DAILY, #30 CAP 02/04/19 Bumetanide* (Bumetanide*) 1 Mg Tablet, 1 MG PO BID, TAB 02/04/19 Apixaban* (Eliquis*) 2.5 Mg Tablet, 2.5 MG PO BID, TAB 02/04/19 Sucralfate* (Carafate*) 1 Gm Tab, 2 GM PO AC MEALS AND BEDTIME, TAB 02/04/19 Atorvastatin Calcium* (Atorvastatin Calcium*) 20 Mg Tablet, 20 MG PO QHS, #30 TAB 02/04/19 Budesonide-Formoterol Fumarate* (Symbicort*) 160-4.5 Hfa.aer.ad, 2 PUFF INHALATION BID, #1 EACH 02/04/19 Hydralazine Hcl* (Hydralazine Hcl*) 25 Mg Tab, 25 MG PO BID, #60 TAB 02/04/19 Discontinued Reported Medications Amlodipine Besylate* (Amlodipine Besylate*) 10 Mg Tablet, 10 MG PO DAILY, #30 TAB 02/04/19 Metoprolol Succinate* (Toprol XL*) 50 Mg Tab.er.24h, 50 MG PO BID, #30 TAB 02/04/19 Allergies Allergies: Coded Allergies: warfarin (Verified Allergy, Unknown, 02/15/19) PMhx/Soc History of Surgery: Yes (AV shunt) Anesthesia Reaction: No Hx Neurological Disorder: No Hx Respiratory Disorders: No Hx Cardiac Disorders: No Hx Psychiatric Problems: No Hx Miscellaneous Medical Probl: Yes (Kidney failure on hemodialysis, HTN, DM) Hx Alcohol Use: No Hx Substance Use: No Hx Tobacco Use: No Smoking Status: Never smoker FmHx Family History: diabetes Physical Exam Vitals Vital Signs Date Temp Pulse Resp B/P (MAP) Pulse Ox O2 O2 Flow FiO2 Time Delivery Rate 02/15/19 97.9 88 17 164/89 100 Room Air 17:39 (114) 02/15/19 97.0 100 18 130/83 95 13:23 (99) Physical Exam Const: No acute distress Head: Atraumatic Eyes: Normal Conjunctiva ENT: Dry oral mucosa. Normal External Ears, Nose and Mouth. Neck: Full range of motion. No meningismus. Positive JVD Resp: Diminished breath sounds bilaterally with bibasilar crackles. No wheezing Cardio: Irregularly irregular rhythm, normal rate. No murmurs Abd: Soft, non tender, non distended. Normal bowel sounds Skin: No petechiae or rashes Back: No midline or flank tenderness Ext: No cyanosis,. No calf tenderness. 1+ bilateral lower extremity pitting edema Neur: Awake and alert Psych: Normal Mood and Affect Result Diagram: 02/15/19 1558 02/15/19 1558 Results 24 hrs Laboratory Tests Test 02/15/19 15:58 White Blood Count 6.2 10^3/ul Red Blood Count 3.38 10^6/ul Hemoglobin 10.0 g/dl Hematocrit 32.1 % Mean Corpuscular Volume 95.0 fl Mean Corpuscular Hemoglobin 29.6 pg Mean Corpuscular Hemoglobin Concent 31.2 g/dl Red Cell Distribution Width 17.4 % Platelet Count 271 10^3/UL Mean Platelet Volume 10.5 fl Immature Granulocytes % 0.500 % Neutrophils % 74.1 % Lymphocytes % 14.5 % Monocytes % 8.7 % Eosinophils % 1.6 % Basophils % 0.6 % Nucleated Red Blood Cells % 0.0 /100WBC Immature Granulocytes # 0.030 10^3/ul Neutrophils # 4.6 10^3/ul Lymphocytes # 0.9 10^3/ul Monocytes # 0.5 10^3/ul Eosinophils # 0.1 10^3/ul Basophils # 0.0 10^3/ul Nucleated Red Blood Cells # 0.0 10^3/ul Sodium Level 138 mmol/L Potassium Level 4.3 mmol/L Chloride Level 95 mmol/L Carbon Dioxide Level 33 mmol/L Anion Gap 10 Blood Urea Nitrogen 37 mg/dl Creatinine 4.87 mg/dl Est Glomerular Filtrat Rate mL/min mL/min Glucose Level 116 mg/dl Calcium Level 9.3 mg/dl Troponin I < 0.012 ng/ml B-Type Natriuretic Peptide 83053 PG/ML Current Medications Medications Dose Sig/Rachana Start Time Status Last (Trade) Ordered Route PRN Stop Time Admin Dose Reason Admin Ondansetron 4 mg ER BRIDGE 02/15/19 HCl (Zofran PRN IV 18:00 Inj) NAUSEA/VOMITI 02/16/19 17:59 NG 650 mg ER BRIDGE 02/15/19 Acetaminophen PRN PO 18:00 (Tylenol .MILD PAIN 02/16/19 17:59 Tab) 1-3 OR TEMP Procedures/MDM EMERGENT LABS AND DIAGNOSTIC STUDIES: Lab Results above were reviewed and interpreted by me. CBC: no anemia or evidence of infection BMP: Elevated BUN and creatinine, consistent with history of ESRD. No e/o clinically significant electrolyte abnormality severe acidosis, alkalosis, diabetic ketoacidosis Troponin within normal limits, not indicative of cardiac ischemia BNP significantly elevated 12-lead EKG was interpreted by Madonna Spivey MD: Atrial fibrillation at 90 bpm Normal axis Intraventricular conduction delay No acute ST or T wave changes suggestive of acute ischemia or STEMI. Radiology Results as interpreted by Radiology below were reviewed by Fran Spivey MD: Chest Xray: IMPRESSION: Cardiomegaly with calcified atherosclerosis in the aorta. Central pulmonary vascular congestion and interstitial prominence in both lungs. Patchy perihilar infiltrates throughout the right lung and in the left lower lobe. Scattered atelectasis in the left upper lobe. Elevated right hemidiaphragm. Initial Nursing notes reviewed. Previous Medical Records requested via the Electronic Health Record. EMERGENCY DEPARTMENT COURSE / MEDICAL DECISION MAKING: Patient presents with worsening dyspnea and orthopnea. Vitals were unremarkable other than hypertension. Exam and work-up most consistent with pulmonary edema as the cause of her symptoms. No evidence of ACS. Doubt pulmonary embolism. Doubt pneumonia. Patient will require admission for dialysis and stabilization. Accepting Care Team: Current data and ongoing care discussed. Time: Time of admission Primary Provider: Dr. Antoinette Puga Diagnosis: Primary Impression: Pulmonary edema Chronicity: acute Qualified Codes: J81.0 - Acute pulmonary edema Additional Impressions: ESRD on hemodialysis Orthopnea Condition: Serious MABEL SPIVEY MD Feb 15, 2019 16:41
[2019-02-15] MEDS ORDERED: ACETAMINOPHEN 325 MG TAB PO PRN ×2 (18:00→18:30)
[2019-02-15] MEDS ORDERED: ONDANSETRON 4 MG INJ IV PRN ×2 (18:00→18:30)
[2019-02-15] MEDS ORDERED: DOCUSATE SODIUM 100 MG CAP PO PRN ×2 (18:30)
[2019-02-15] MEDS ORDERED: DEXTROSE 50% 50 ML SYRINGE IV PRN ×2 (18:30)
[2019-02-15] MEDS ORDERED: morphine 2 MG INJ IV PRN (18:30)
[2019-02-15] MEDS ORDERED: HYDROCODONE/APAP (5/325) TAB PO PRN (18:30)
[2019-02-15] MEDS ORDERED: NITROGLYCERIN (SL) 0.4 MG TAB SL PRN (18:30)
[2019-02-15] MEDS ORDERED: GLUCOSE GEL 15 GRAM TUBE BUCCAL PRN (18:30)
[2019-02-15] MEDS ORDERED: NACL 0.9% 3 ML SYG IV SCH (18:30)
[2019-02-15] MEDS ORDERED: MAGNESIUM HYDROXIDE 30ML CUP PO PRN (18:30)
[2019-02-15] MEDS ORDERED: ALBUTEROL/IPRATROPIUM (NEB) 3 ML AMP HHN PRN (18:30)
[2019-02-15] MEDS ORDERED: GLUCOSE GEL 15 GRAM TUBE PO PRN ×2 (18:30)
[2019-02-15] MEDS ORDERED: GLUCAGON 1 MG INJ IM PRN (18:30)
[2019-02-15] MEDS ORDERED: LORAZEPAM 2 MG INJ IV PRN (18:30)
[2019-02-15] MEDS: BUMETANIDE 1 MG TAB PO SCH (18:55)
[2019-02-15 19:45] VITALS: PULSE 86
[2019-02-15 20:00] VITALS: BP 160/99; PULSE 88; RESP 19
[2019-02-15] MEDS: INSULIN ASPART [NOVOLOG] 3 ML PEN SC SCH (21:00)
[2019-02-15] MEDS ORDERED: METOPROLOL (XL) 25 MG TAB PO SCH (21:00)
[2019-02-15] MEDS: SUCRALFATE 1 GM TAB PO SCH (21:43)
[2019-02-15] MEDS: traZODone 50 MG TAB PO SCH (21:43)
[2019-02-15] MEDS: ATORVASTATIN 20 MG TAB PO SCH (21:43)
[2019-02-15] MEDS: GABAPENTIN 100 MG CAP PO SCH (21:44)
[2019-02-15] MEDS: APIXABAN 5 MG TABLET PO SCH (21:44)
[2019-02-15] MEDS: ACCU-CHEK XX SCH (21:49)
[2019-02-15 22:11] VITALS: Ht 154.9 cm; Wt 75.2 kg
--- NOTE | 2019-02-15 22:12 | HP ---
DATE OF ADMISSION: 02/15/2019 CHIEF COMPLAINT: Shortness of breath. HISTORY OF PRESENT ILLNESS: A 79-year-old female, past medical history of hypertension, endstage osmani al disease on dialysis, recent partial small-bowel obstruction which resolved, AFib on Eliquis, diabe iris, COPD, high cholesterol, anemia, who comes in complaining of shortness of breath. Symptoms that have been going on for the last 5 to 6 days. Patient also complaining of orthopnea. She had dialysi s yesterday, but having some subjective fevers at home again some shortness of breath. She was recen tly hospitalized at [facility] from 02/04/2019 to 02/09/2019. At that time, she wa s treated for partial small-bowel obstruction. She denies any chills. No upper or lower GI bleeding , no constipation, but she has been having some loose stools, she says. When she came in today she h ad a chest x-ray performed that showed signs of central pulmonary vascular congestion and interstitia l prominence in both lungs, patchy perihilar infiltrates throughout the right lung and in the left lo wer lobe. Her BNP was also elevated at 49,000, although troponin is negative. PAST MEDICAL HISTORY: As stated above. ALLERGIES: Warfarin. MEDICATIONS AT HOME: 1. Eliquis 2.5 mg b.i.d. 2. Amiodarone 200 mg daily. 3. Atorvastatin 20 mg at bedtime. 4. Diltiazem 240 mg daily. 5. Hydralazine 25 mg b.i.d. 6. Toprol XL 25 mg b.i.d. 7. Gabapentin 100 mg t.i.d. 8. Trazodone 50 mg at bedtime. 9. Bumex 1 mg p.o. b.i.d. 10. Symbicort 2 mg inhaled b.i.d. 11. Colace 100 mg q.24 hours p.r.n. 12. Protonix 40 mg every morning. 13. Carafate 2 grams with meals and bedtime. 14. Glimepiride 1 mg every morning. PAST SURGICAL HISTORY: She has had small-bowel obstruction surgery x2 in the past, eye surgery, gall bladder surgery and hysterectomy and also AV fistula. SOCIAL HISTORY: Negative for smoking, drinking, or IV drug abuse. PHYSICAL EXAMINATION: VITAL SIGNS: T-max 97.0, pulse 100, respirations 18, blood pressure 130/83, satting at 95% room air. GENERAL: The patient lying in bed in mild distress, but alert. HEENT: Pupils equal, round, react to light. Extraocular muscles intact. NECK: Supple, no thyromegaly. LUNGS: Slightly distant breath sounds bilaterally. CARDIOVASCULAR: S1, S2 heard. No rubs or gallops. ABDOMEN: Soft, nontender, nondistended. Normal bowel sounds. No rebound or guarding. MUSCULOSKELETAL: No lower extremity edema bilaterally. NEUROLOGIC: No focal deficits. LABORATORIES: CBC is normal. Sodium 138, potassium 4.3, chloride 95, CO2 of 33, BUN 37, creatinine 4.87, glucose 116. We mentioned the chest x-ray findings. ASSESSMENT AND PLAN: A 79-year-old female with history of atrial fibrillation, chronic obstructive p ulmonary disease, high cholesterol, endstage renal disease on hemodialysis, recent partial small-james l obstruction, hypertension, who comes in with shortness of breath and orthopnea, signs of possible f luid overload. 1. Shortness of breath and orthopnea. Again, likely secondary to mild fluid overload. Chest x-ray does show this finding. BNP is elevated at 49,000. We will admit the patient, keep the head of bed elevated greater than 30 degrees, continue her on Bumex, morphine p.r.n., nitroglycerin p.r.n., get P T consult as well. Check TSH, A1c, lipid panel. We will get renal consult as well. The patient may benefit from another session of dialysis. 2. History of atrial fibrillation, presently rate controlled. Continue current cardiac medications as well as Eliquis. 3. History of diabetes. Again, follow up A1c. Continue sliding scale insulin. 4. History of chronic obstructive pulmonary disease, no present issues. DuoNebs p.r.n. 5. High cholesterol. Follow up lipid panel. Continue statin. 6. History of hypertension, currently stable. Continue current blood pressure medicines. 7. History of recent partial small-bowel obstruction. For now, the patient states she is passing ga s. She did have some loose stools. We will go ahead and start her on a clear liquid diet and wait f or the speech therapy evaluation. 8. Deep venous thrombosis prophylaxis with Eliquis. 9. Gastrointestinal prophylaxis, PPI. Dictated By: PATTI PITTMAN Conf#: [id number] DID#: [id number]
[2019-02-15 23:21] VITALS: BP 164/80; PULSE 99; RESP 18
[2019-02-16] VITALS (14 sets, daily range): BP systolic 132–186; BP diastolic 61–95; PULSE 74–95; RESP 18–22
[2019-02-16] MEDS: INSULIN ASPART [NOVOLOG] 3 ML PEN SC SCH ×6 (01:00→20:40)
[2019-02-16] MEDS: ACCU-CHEK XX SCH ×5 (01:30→20:41)
[2019-02-16] MEDS: BUMETANIDE 1 MG TAB PO SCH ×2 (06:00→17:20)
[2019-02-16] MEDS: SUCRALFATE 1 GM TAB PO SCH ×4 (06:03→20:40)
[2019-02-16] MEDS: PANTOPRAZOLE (EC) 40 MG TAB PO SCH (06:03)
[2019-02-16] MEDS ORDERED: GLIMEPIRIDE 2 MG TAB PO SCH (08:00)
[2019-02-16] MEDS: GABAPENTIN 100 MG CAP PO SCH ×3 (09:24→20:40)
[2019-02-16] MEDS: APIXABAN 5 MG TABLET PO SCH ×2 (09:24→20:41)
[2019-02-16] MEDS: AMIODARONE 200 MG TAB PO SCH (09:24)
[2019-02-16] MEDS: DILTIAZEM (CD) 240 MG CAP PO SCH (09:24)
[2019-02-16] MEDS: FLUTICASONE/VILANTEROL 200-25 INH DEVICE INH SCH (09:26)
--- NOTE | 2019-02-16 11:15 | PDOCDIS ---
Discharge Instructions CONDITION [id number] Patient Condition: [id number] Good HOME CARE INSTRUCTIONS: [id number] Special Diet: [id number] Renal ACTIVITY: [id number] Activity Restrictions: [id number] No Restrictions FOLLOW UP/APPOINTMENTS Follow-up Plan FOLLOW UP WITH YOUR PRIMARY CARE PHYSICIAN IN 1-2 WEEKS, follow-up with dialysis center as scheduled, follow-up with home health MEGA ANNE Feb 16, 2019 11:15
--- NOTE | 2019-02-16 12:21 | CONS ---
Assessment/Plan Assessment/Plan Assessment/Plan (Daily) Assessment and recommendations; 1. Patient admitted with CHF exacerbation with interval improvement. 2. Multiple other comorbidities include history of renal failure; dialysis dependent. Hypertension, atrial fibrillation, neuropathy, diabetes and anemia. Continue current supportive care. Continue Bumex. Hemodialysis per pathological technician. Consultation Date/Type/Reason Admit Date/Time Feb 15, 2019 at 18:01 Date of Consultation: Feb 16, 2019 Type of Consult Pulmonary Patient is a 79-year-old lady who was admitted with few days history of increasing shortness of breath. Upon evaluation a chest x-ray was done with a BMP, chest x-ray showing pulmonary edema and BNP level is extremely high., Patient has been started on Bumex with significant improvement in symptoms. Denies any chest pain, coughing, wheezing. Any sputum production or hemoptysis. Any fever or chills. By the time I saw the patient, patient completely awake and alert and was laying comfortably in bed. Past medical history; 1. End-stage renal disease. 2. CHF. 3. Neuropathy. 4. Hypertension. 5. History of cholecystectomy. 6. Hysterectomy. 7. History of bowel obstruction x2 with surgery. 8. Diabetes. 9. History of cardiac arrhythmia. 10. Anemia of chronic disease. Medications; reviewed. Allergies; as outlined above. Family history; patient is . 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 Social history; most of any smoking. Review of systems; denies any headache, seizures, visual changes. Denies any chest pain, shortness of breath has improved. Denies any coughing, sputum production wheezing or any hemoptysis. Denies any fever or chills. Denies any abdominal pain, nausea vomiting. Any melena hematochezia. Orthopnea has improved. Denies any edema. General exam; elderly female, awake alert, currently in no distress. Date/Time of Note DATE: 02/16/19 TIME: 12:16 Past Medical History Home Meds Active Scripts Gabapentin* (Gabapentin*) 100 Mg Capsule, 100 MG PO TID for 30 Days, CAP Prov:FOSTER OWEN MD 02/09/19 Docusate Sodium* (Colace*) 100 Mg Capsule, 100 MG PO Q24H PRN for CONSTIPATION, #30 CAP Prov:FOSTER OWEN MD 02/09/19 Metoprolol Succinate* (Toprol XL*) 25 Mg Tab.sr.24h, 25 MG PO BID for 30 Days Prov:FOSTER OWEN MD 02/09/19 Amiodarone Hcl* (Amiodarone Hcl*) 200 Mg Tablet, 200 MG PO DAILY for 30 Days, TAB Prov:FOSTER OWEN MD 02/09/19 Reported Medications Trazodone Hcl* (Desyrel*) 50 Mg Tab, 50 MG PO QHS, #30 TAB 02/04/19 Pantoprazole* (Pantoprazole*) 40 Mg Tablet.dr, 40 MG PO AC BREAKFAST, TAB 02/04/19 Glimepiride* (Glimepiride*) 2 Mg Tablet, 1 MG PO WITH BREAKFAST, TAB 02/04/19 Diltiazem Hcl* (Diltiazem XT) 240 Mg Capsule.er, 240 MG PO DAILY, #30 CAP 02/04/19 Bumetanide* (Bumetanide*) 1 Mg Tablet, 1 MG PO BID, TAB 02/04/19 Apixaban* (Eliquis*) 2.5 Mg Tablet, 2.5 MG PO BID, TAB 02/04/19 Sucralfate* (Carafate*) 1 Gm Tab, 2 GM PO AC MEALS AND BEDTIME, TAB 02/04/19 Atorvastatin Calcium* (Atorvastatin Calcium*) 20 Mg Tablet, 20 MG PO QHS, #30 TAB 02/04/19 Budesonide-Formoterol Fumarate* (Symbicort*) 160-4.5 Hfa.aer.ad, 2 PUFF INHALATION BID, #1 EACH 02/04/19 Hydralazine Hcl* (Hydralazine Hcl*) 25 Mg Tab, 25 MG PO BID, #60 TAB 02/04/19 Discontinued Reported Medications Amlodipine Besylate* (Amlodipine Besylate*) 10 Mg Tablet, 10 MG PO DAILY, #30 TAB 02/04/19 Metoprolol Succinate* (Toprol XL*) 50 Mg Tab.er.24h, 50 MG PO BID, #30 TAB 02/04/19 Medications Current Medications IV Flush (NS 3 ml) 3 ml PER PROTOCOL IV ; Start 02/15/19 at 18:30 Ondansetron HCl (Zofran Inj) 4 mg Q6H PRN IV NAUSEA/VOMITING; Start 02/15/19 at 18:30 Acetaminophen (Tylenol Tab) 650 mg Q6H PRN PO .PAIN 1-3 OR TEMP; Start 02/15/19 at 18:30 Acetaminophen/ Hydrocodone Bitart ([place] (5/325)) 1 tab Q6H PRN PO .MOD PAIN 4- 6; Start 02/15/19 at 18:30 Morphine Sulfate (morphine) 2 mg Q4H PRN IV .SEVERE PAIN 7-10; Start 02/15/19 at 18:30 Docusate Sodium (Colace) 100 mg Q12H PRN PO .CONSTIPATION; Start 02/15/19 at 18:30 Magnesium Hydroxide (Milk Of Mag) 30 ml DAILY PRN PO .CONSTIPATION; Start 02/15/19 at 18:30 Lorazepam (Ativan) 0.5 mg Q6H PRN IV ANXIETY; Start 02/15/19 at 18:30 Albuterol/ Ipratropium (Duoneb) 3 ml Q4H RESP THERAPY PRN HHN SHORTNESS OF BREATH; Start 02/15/19 at 18:30 Nitroglycerin (Nitroglycerin (Sl Tab) 0.4 Mg) 1 tab Q5M PRN SL ANGINA; Start 02/15/19 at 18:30 Diagnostic Test (Pha) (Accu-Chek) 1 ea 02 XX Last administered on 02/16/19at 01:30; Admin Dose 1 EA; Start 02/16/19 at 02:00 Insulin Aspart (Novolog Insulin Pen) NOVOLOG *MILD* ALGORI... Q4 SC ; Start 02/15/19 at 21:00 Amiodarone HCl (Cordarone) 200 mg DAILY PO Last administered on 02/16/19at 09:24; Admin Dose 200 MG; Start 02/16/19 at 09:00 Apixaban (Eliquis) 2.5 mg BID PO Last administered on 02/16/19at 09:24; Admin Dose 2.5 MG; Start 02/15/19 at 21:00 Atorvastatin Calcium (Lipitor) 20 mg QHS PO Last administered on 02/15/19at 21:43; Admin Dose 20 MG; Start 02/15/19 at 21:00 Bumetanide (Bumex) 1 mg BID DIURETICS PO ; Start 02/15/19 at 18:55 Diltiazem HCl (Cardizem Cd) 240 mg DAILY PO Last administered on 02/16/19 09:24; Admin Dose 240 MG; Start 02/16/19 at 09:00 Gabapentin (Neurontin) 100 mg TID PO Last administered on 02/16/19 09:24; Admin Dose 100 MG; Start 02/15/19 at 21:00 Hydralazine HCl (Apresoline) 25 mg BID PO Last administered on 02/16/19 09:23; Admin Dose 25 MG; Start 02/15/19 at 21:00 Pantoprazole (Protonix Tab) 40 mg AC BREAKFAST PO Last administered on 02/16/19 06:03; Admin Dose 40 MG; Start 02/16/19 at 07:00 Sucralfate (Carafate) 2 gm AC MEALS AND BEDTIME PO Last administered on 02/16/19 11:43; Admin Dose 2 GM; Start 02/15/19 at 21:00 Trazodone HCl (Desyrel) 50 mg QHS PO Last administered on 02/15/19at 21:43; Admin Dose 50 MG; Start 02/15/19 at 21:00 Fluticasone/ Vilanterol (Breo Ellipta 200-25 Mcg Inh) 1 inh DAILY INH Last administered on 02/16/19 09:26; Admin Dose 1 INH; Start 02/16/19 at 09:00 Diagnostic Test (Pha) (Accu-Chek) 1 ea AC MEALS AND BEDTIME XX Last administered on 02/16/19at 11:42; Admin Dose 1 EA; Start 02/15/19 at 21:00 Miscellaneous Information 1 ea NOTE XX ; Start 02/15/19 at 18:30 Glucose (Glutose) 15 gm Q15M PRN PO DECREASED GLUCOSE; Start 02/15/19 at 18:30 Glucose (Glutose) 22.5 gm Q15M PRN PO DECREASED GLUCOSE; Start 02/15/19 at 18:30 Dextrose (D50w Syringe) 25 ml Q15M PRN IV DECREASED GLUCOSE; Start 02/15/19 at 18:30 Dextrose (D50w Syringe) 50 ml Q15M PRN IV DECREASED GLUCOSE; Start 02/15/19 at 18:30 Glucagon (Glucagen) 1 mg Q15M PRN IM DECREASED GLUCOSE; Start 02/15/19 at 18:30 Glucose (Glutose) 15 gm Q15M PRN BUCCAL DECREASED GLUCOSE; Start 02/15/19 at 18:30 Allergies: Coded Allergies: warfarin (Verified Allergy, Unknown, 02/15/19) Past Surgical History Past Surgical Hx: no surgical history Social History Smoking Status: Never smoker Exam/Review of Systems Exam Vitals Vital Signs Date Temp Pulse Resp B/P (MAP) Pulse Ox O2 O2 Flow FiO2 Time Delivery Rate 02/16/19 97.8 75 22 150/75 96 Nasal 11:38 (100) Cannula 02/16/19 4.0 08:44 Intake and Output 02/15/19 02/15/19 02/16/19 1515:00 23:00 07:00 OutputOutput Total 200 ml BalanceBalance -200 ml Exam H ENT exam; supple neck, positive JVD. No lymphadenopathy. Midline trachea. No thyromegaly. Patient has multiple carious teeth. Pupils are small bilaterally. No neck masses. Chest exam; diminished but clear breath sounds. S1-S2 audible, no murmurs. Irregular rhythm. Abdomen exam; soft, nontender. No organomegaly. Mildly protuberant. Bowel sounds audible. Multiple well-healed scars are present. Extremity exam; no peripheral edema clubbing. CVT RN exam; no focal deficit. Results Result Diagram: 02/16/19 0537 02/16/19 0537 Results 24hrs Laboratory Tests Test 02/15/19 15:58 02/15/19 21:48 02/16/19 01:27 02/16/19 05:33 White Blood Count 6.2 Red Blood Count 3.38 L Hemoglobin 10.0 L Hematocrit 32.1 L Mean Corpuscular 95.0 Volume Mean Corpuscular 29.6 Hemoglobin Mean Corpuscular 31.2 L Hemoglobin Concent Red Cell 17.4 H Distribution Width Platelet Count 271 # Mean Platelet Volume 10.5 H Immature 0.500 H Granulocytes % Neutrophils % 74.1 Lymphocytes % 14.5 L Monocytes % 8.7 Eosinophils % 1.6 Basophils % 0.6 Nucleated Red Blood 0.0 Cells % Immature 0.030 Granulocytes # Neutrophils # 4.6 Lymphocytes # 0.9 Monocytes # 0.5 Eosinophils # 0.1 Basophils # 0.0 Nucleated Red Blood 0.0 Cells # Sodium Level 138 Potassium Level 4.3 Chloride Level 95 L Carbon Dioxide Level 33 H Anion Gap 10 Blood Urea Nitrogen 37 H Creatinine 4.87 H Est Glomerular Filtrat Rate mL/min Glucose Level 116 Calcium Level 9.3 Troponin I < 0.012 B-Type Natriuretic 18836 H Peptide Free Thyroxine 1.27 Bedside Glucose 122 100 Hepatitis B Surface NEGATIVE Antigen Test 02/16/19 05:37 02/16/19 05:38 02/16/19 06:06 02/16/19 09:18 White Blood Count 5.3 Red Blood Count 2.95 L Hemoglobin 8.9 L Hematocrit 28.0 L Mean Corpuscular 94.9 Volume Mean Corpuscular 30.2 Hemoglobin Mean Corpuscular 31.8 L Hemoglobin Concent Red Cell 17.2 H Distribution Width Platelet Count 251 Mean Platelet Volume 10.7 H Immature 0.600 H Granulocytes % Neutrophils % 69.0 Lymphocytes % 14.4 L Monocytes % 12.1 H Eosinophils % 3.0 Basophils % 0.9 Nucleated Red Blood 0.0 Cells % Immature 0.030 Granulocytes # Neutrophils # 3.6 Lymphocytes # 0.8 Monocytes # 0.6 Eosinophils # 0.2 Basophils # 0.1 Nucleated Red Blood 0.0 Cells # Sodium Level 138 Potassium Level 4.2 Chloride Level 97 Carbon Dioxide Level 34 H Anion Gap 7 Blood Urea Nitrogen 39 H Creatinine 5.57 H Est Glomerular Filtrat Rate mL/min Glucose Level 67 #L Hemoglobin A1c 5.8 Calcium Level 8.9 Triglycerides Level 66 Cholesterol Level 79 L LDL Cholesterol, 30 Calculated HDL Cholesterol 36 Cholesterol/HDL 2.1 Ratio Thyroid Stimulating 4.410 Hormone (TSH) Bedside Glucose 75 67 L Test 02/16/19 09:40 02/16/19 11:42 Bedside Glucose 105 149 Medications Medication Current Medications IV Flush (NS 3 ml) 3 ml PER PROTOCOL IV ; Start 02/15/19 at 18:30 Ondansetron HCl (Zofran Inj) 4 mg Q6H PRN IV NAUSEA/VOMITING; Start 02/15/19 at 18:30 Acetaminophen (Tylenol Tab) 650 mg Q6H PRN PO .PAIN 1-3 OR TEMP; Start 02/15/19 at 18:30 Acetaminophen/ Hydrocodone Bitart ([place] (5/325)) 1 tab Q6H PRN PO .MOD PAIN 4- 6; Start 02/15/19 at 18:30 Morphine Sulfate (morphine) 2 mg Q4H PRN IV .SEVERE PAIN 7-10; Start 02/15/19 at 18:30 Docusate Sodium (Colace) 100 mg Q12H PRN PO .CONSTIPATION; Start 02/15/19 at 18:30 Magnesium Hydroxide (Milk Of Mag) 30 ml DAILY PRN PO .CONSTIPATION; Start 02/15/19 at 18:30 Lorazepam (Ativan) 0.5 mg Q6H PRN IV ANXIETY; Start 02/15/19 at 18:30 Albuterol/ Ipratropium (Duoneb) 3 ml Q4H RESP THERAPY PRN HHN SHORTNESS OF BREATH; Start 02/15/19 at 18:30 Nitroglycerin (Nitroglycerin (Sl Tab) 0.4 Mg) 1 tab Q5M PRN SL ANGINA; Start 02/15/19 at 18:30 Diagnostic Test (Pha) (Accu-Chek) 1 ea 02 XX Last administered on 02/16/19at 01:30; Admin Dose 1 EA; Start 02/16/19 at 02:00 Insulin Aspart (Novolog Insulin Pen) NOVOLOG *MILD* ALGORI... Q4 SC ; Start 02/15/19 at 21:00 Amiodarone HCl (Cordarone) 200 mg DAILY PO Last administered on 02/16/19 09:24; Admin Dose 200 MG; Start 02/16/19 at 09:00 Apixaban (Eliquis) 2.5 mg BID PO Last administered on 02/16/19 09:24; Admin Dose 2.5 MG; Start 02/15/19 at 21:00 Atorvastatin Calcium (Lipitor) 20 mg QHS PO Last administered on 02/15/19at 21:43; Admin Dose 20 MG; Start 02/15/19 at 21:00 Bumetanide (Bumex) 1 mg BID DIURETICS PO ; Start 02/15/19 at 18:55 Diltiazem HCl (Cardizem Cd) 240 mg DAILY PO Last administered on 02/16/19 09:24; Admin Dose 240 MG; Start 02/16/19 at 09:00 Gabapentin (Neurontin) 100 mg TID PO Last administered on 02/16/19 09:24; Admin Dose 100 MG; Start 02/15/19 at 21:00 Hydralazine HCl (Apresoline) 25 mg BID PO Last administered on 02/16/19 09:23; Admin Dose 25 MG; Start 02/15/19 at 21:00 Pantoprazole (Protonix Tab) 40 mg AC BREAKFAST PO Last administered on 02/16/19 06:03; Admin Dose 40 MG; Start 02/16/19 at 07:00 Sucralfate (Carafate) 2 gm AC MEALS AND BEDTIME PO Last administered on 02/16/19 11:43; Admin Dose 2 GM; Start 02/15/19 at 21:00 Trazodone HCl (Desyrel) 50 mg QHS PO Last administered on 02/15/19 21:43; Admin Dose 50 MG; Start 02/15/19 at 21:00 Fluticasone/ Vilanterol (Breo Ellipta 200-25 Mcg Inh) 1 inh DAILY INH Last administered on 02/16/19 09:26; Admin Dose 1 INH; Start 02/16/19 at 09:00 Diagnostic Test (Pha) (Accu-Chek) 1 ea AC MEALS AND BEDTIME XX Last ad ministered on 02/16/19at 11:42; Admin Dose 1 EA; Start 02/15/19 at 21:00 Miscellaneous Information 1 ea NOTE XX ; Start 02/15/19 at 18:30 Glucose (Glutose) 15 gm Q15M PRN PO DECREASED GLUCOSE; Start 02/15/19 at 18:30 Glucose (Glutose) 22.5 gm Q15M PRN PO DECREASED GLUCOSE; Start 02/15/19 at 18:30 Dextrose (D50w Syringe) 25 ml Q15M PRN IV DECREASED GLUCOSE; Start 02/15/19 at 18:30 Dextrose (D50w Syringe) 50 ml Q15M PRN IV DECREASED GLUCOSE; Start 02/15/19 at 18:30 Glucagon (Glucagen) 1 mg Q15M PRN IM DECREASED GLUCOSE; Start 02/15/19 at 18:30 Glucose (Glutose) 15 gm Q15M PRN BUCCAL DECREASED GLUCOSE; Start 02/15/19 at 18:30 ALMA ESCALONA Feb 16, 2019 12:21
--- NOTE | 2019-02-16 12:56 | DS ---
Date/Time of Note Date/Time of Note DATE: 02/16/19 TIME: 12:46 Discharge Summary Admission/Discharge Info Admit Date/Time Feb 15, 2019 at 18:01 Discharge Date/Time February 16, 2019 Discharge Diagnosis 1. Acute respiratory distress secondary to fluid overload from end-stage renal disease Patient has improved rapidly and sooner than anticipated with one round of dialysis Patient stable for DC back to home with home health and supplemental oxygen Recent echo showed a preserved EF 2. End-stage renal disease Nephrology consultation appreciated, continue outpatient HD 3. History of A. fib Continue home meds 4. Diabetes Continue regimen 5. COPD Stable 6. Dyslipidemia Continue meds 7. Hypertension Continue meds 8. History of recent partial small-bowel obstruction No acute issues Patient Condition: Good Hospital Course Patient is a 79-year-old female with a history of obesity, diabetes, hypertension, dyslipidemia, recent partial small bowel obstruction and end-stage renal disease who presents with acute respiratory failure secondary to fluid overload. Patient did have a recent echo that showed a preserved EF, patient was dialyzed and had a rapid improvement and was stable for DC to home with home health and home O2. On the day of discharge patient's vitals, labs and physical exam are stable. Home Meds Active Scripts Gabapentin* (Gabapentin*) 100 Mg Capsule, 100 MG PO TID for 30 Days, CAP Prov:FOSTER OWEN MD 02/09/19 Docusate Sodium* (Colace*) 100 Mg Capsule, 100 MG PO Q24H PRN for CONSTIPATION, #30 CAP Prov:FOSTER OWEN MD 02/09/19 Metoprolol Succinate* (Toprol XL*) 25 Mg Tab.sr.24h, 25 MG PO BID for 30 Days Prov:FOSTER OWEN MD 02/09/19 Amiodarone Hcl* (Amiodarone Hcl*) 200 Mg Tablet, 200 MG PO DAILY for 30 Days, TAB Prov:FOSTER OWEN MD 02/09/19 Reported Medications Trazodone Hcl* (Desyrel*) 50 Mg Tab, 50 MG PO QHS, #30 TAB 02/04/19 Pantoprazole* (Pantoprazole*) 40 Mg Tablet.dr, 40 MG PO AC BREAKFAST, TAB 02/04/19 Glimepiride* (Glimepiride*) 2 Mg Tablet, 1 MG PO WITH BREAKFAST, TAB 02/04/19 Diltiazem Hcl* (Diltiazem XT) 240 Mg Capsule.er, 240 MG PO DAILY, #30 CAP 02/04/19 Bumetanide* (Bumetanide*) 1 Mg Tablet, 1 MG PO BID, TAB 02/04/19 Apixaban* (Eliquis*) 2.5 Mg Tablet, 2.5 MG PO BID, TAB 02/04/19 Sucralfate* (Carafate*) 1 Gm Tab, 2 GM PO AC MEALS AND BEDTIME, TAB 02/04/19 Atorvastatin Calcium* (Atorvastatin Calcium*) 20 Mg Tablet, 20 MG PO QHS, #30 TAB 02/04/19 Budesonide-Formoterol Fumarate* (Symbicort*) 160-4.5 Hfa.aer.ad, 2 PUFF INHALATION BID, #1 EACH 02/04/19 Hydralazine Hcl* (Hydralazine Hcl*) 25 Mg Tab, 25 MG PO BID, #60 TAB 02/04/19 Discontinued Reported Medications Amlodipine Besylate* (Amlodipine Besylate*) 10 Mg Tablet, 10 MG PO DAILY, #30 TAB 02/04/19 Metoprolol Succinate* (Toprol XL*) 50 Mg Tab.er.24h, 50 MG PO BID, #30 TAB 02/04/19 Follow-up Plan FOLLOW UP WITH YOUR PRIMARY CARE PHYSICIAN IN 1-2 WEEKS, follow-up with dialysis center as scheduled, follow-up with home health Primary Care Provider Care Physician No Primary Time spent on discharge: > 30 minutes MEGA ANNE Feb 16, 2019 12:56
--- NOTE | 2019-02-16 16:51 | CONS ---
Consult Date/Type/Reason Admit Date/Time Feb 15, 2019 at 18:01 Initial Consult Date 02/16/19 Date/Time of Note DATE: 02/16/19 TIME: 16:40 Subjective full note dictated. seen on hd early this am.. feeling better. Objective Vitals Vital Signs Date Temp Pulse Resp B/P (MAP) Pulse Ox O2 O2 Flow FiO2 Time Delivery Rate 02/16/19 98.0 74 22 132/66 96 Nasal 15:37 (88) Cannula 02/16/19 3.0 12:12 Intake and Output 02/15/19 02/15/19 02/16/19 1515:00 23:00 07:00 OutputOutput Total 200 ml BalanceBalance -200 ml Results/Medications Result Diagram: 02/16/19 0537 02/16/19 0537 Results 24 hrs Laboratory Tests Test 02/15/19 21:48 02/16/19 01:27 02/16/19 05:33 02/16/19 05:37 Bedside Glucose 122 100 Hepatitis B Surface NEGATIVE Antigen White Blood Count 5.3 Red Blood Count 2.95 L Hemoglobin 8.9 L Hematocrit 28.0 L Mean Corpuscular 94.9 Volume Mean Corpuscular 30.2 Hemoglobin Mean Corpuscular 31.8 L Hemoglobin Concent Red Cell 17.2 H Distribution Width Platelet Count 251 Mean Platelet Volume 10.7 H Immature 0.600 H Granulocytes % Neutrophils % 69.0 Lymphocytes % 14.4 L Monocytes % 12.1 H Eosinophils % 3.0 Basophils % 0.9 Nucleated Red Blood 0.0 Cells % Immature 0.030 Granulocytes # Neutrophils # 3.6 Lymphocytes # 0.8 Monocytes # 0.6 Eosinophils # 0.2 Basophils # 0.1 Nucleated Red Blood 0.0 Cells # Sodium Level 138 Potassium Level 4.2 Chloride Level 97 Carbon Dioxide Level 34 H Anion Gap 7 Blood Urea Nitrogen 39 H Creatinine 5.57 H Est Glomerular Filtrat Rate mL/min Glucose Level 67 #L Hemoglobin A1c 5.8 Calcium Level 8.9 Test 02/16/19 05:38 02/16/19 06:06 02/16/19 09:18 02/16/19 09:40 Triglycerides Level 66 Cholesterol Level 79 L LDL Cholesterol, 30 Calculated HDL Cholesterol 36 Cholesterol/HDL 2.1 Ratio Thyroid Stimulating 4.410 Hormone (TSH) Bedside Glucose 75 67 L 105 Test 02/16/19 11:42 7/17/19 12:25 Bedside Glucose 149 125 Home Meds Active Scripts Gabapentin* (Gabapentin*) 100 Mg Capsule, 100 MG PO TID for 30 Days, CAP Prov:FOSTER OWEN MD 02/09/19 Docusate Sodium* (Colace*) 100 Mg Capsule, 100 MG PO Q24H PRN for CONSTIPATION, #30 CAP Prov:FOSTER OWEN MD 02/09/19 Metoprolol Succinate* (Toprol XL*) 25 Mg Tab.sr.24h, 25 MG PO BID for 30 Days Prov:FOSTER OWEN MD 02/09/19 Amiodarone Hcl* (Amiodarone Hcl*) 200 Mg Tablet, 200 MG PO DAILY for 30 Days, TAB Prov:FOSTER OWEN MD 02/09/19 Reported Medications Trazodone Hcl* (Desyrel*) 50 Mg Tab, 50 MG PO QHS, #30 TAB 02/04/19 Pantoprazole* (Pantoprazole*) 40 Mg Tablet.dr, 40 MG PO AC BREAKFAST, TAB 02/04/19 Glimepiride* (Glimepiride*) 2 Mg Tablet, 1 MG PO WITH BREAKFAST, TAB 02/04/19 Diltiazem Hcl* (Diltiazem XT) 240 Mg Capsule.er, 240 MG PO DAILY, #30 CAP 02/04/19 Bumetanide* (Bumetanide*) 1 Mg Tablet, 1 MG PO BID, TAB 02/04/19 Apixaban* (Eliquis*) 2.5 Mg Tablet, 2.5 MG PO BID, TAB 02/04/19 Sucralfate* (Carafate*) 1 Gm Tab, 2 GM PO AC MEALS AND BEDTIME, TAB 02/04/19 Atorvastatin Calcium* (Atorvastatin Calcium*) 20 Mg Tablet, 20 MG PO QHS, #30 TAB 02/04/19 Budesonide-Formoterol Fumarate* (Symbicort*) 160-4.5 Hfa.aer.ad, 2 PUFF INHALATION BID, #1 EACH 02/04/19 Hydralazine Hcl* (Hydralazine Hcl*) 25 Mg Tab, 25 MG PO BID, #60 TAB 02/04/19 Discontinued Reported Medications Amlodipine Besylate* (Amlodipine Besylate*) 10 Mg Tablet, 10 MG PO DAILY, #30 TAB 02/04/19 Metoprolol Succinate* (Toprol XL*) 50 Mg Tab.er.24h, 50 MG PO BID, #30 TAB 02/04/19 Medications Current Medications IV Flush (NS 3 ml) 3 ml PER PROTOCOL IV ; Start 02/15/19 at 18:30 Ondansetron HCl (Zofran Inj) 4 mg Q6H PRN IV NAUSEA/VOMITING; Start 02/15/19 at 18:30 Acetaminophen (Tylenol Tab) 650 mg Q6H PRN PO .PAIN 1-3 OR TEMP; Start 02/15/19 at 18:30 Acetaminophen/ Hydrocodone Bitart ([place] (5/325)) 1 tab Q6H PRN PO .MOD PAIN 4- 6; Start 02/15/19 at 18:30 Morphine Sulfate (morphine) 2 mg Q4H PRN IV .SEVERE PAIN 7-10; Start 02/15/19 at 18:30 Docusate Sodium (Colace) 100 mg Q12H PRN PO .CONSTIPATION; Start 02/15/19 at 18:30 Magnesium Hydroxide (Milk Of Mag) 30 ml DAILY PRN PO .CONSTIPATION; Start 02/15/19 at 18:30 Lorazepam (Ativan) 0.5 mg Q6H PRN IV ANXIETY; Start 02/15/19 at 18:30 Albuterol/ Ipratropium (Duoneb) 3 ml Q4H RESP THERAPY PRN HHN SHORTNESS OF BREATH; Start 02/15/19 at 18:30 Nitroglycerin (Nitroglycerin (Sl Tab) 0.4 Mg) 1 tab Q5M PRN SL ANGINA; Start 02/15/19 at 18:30 Diagnostic Test (Pha) (Accu-Chek) 1 ea 02 XX Last administered on 02/16/19at 01:30; Admin Dose 1 EA; Start 02/16/19 at 02:00 Insulin Aspart (Novolog Insulin Pen) NOVOLOG *MILD* ALGORI... Q4 SC ; Start 02/15/19 at 21:00 Amiodarone HCl (Cordarone) 200 mg DAILY PO Last administered on 02/16/19at 09 :24; Admin Dose 200 MG; Start 02/16/19 at 09:00 Apixaban (Eliquis) 2.5 mg BID PO Last administered on 02/16/19 09:24; Admin Dose 2.5 MG; Start 02/15/19 at 21:00 Atorvastatin Calcium (Lipitor) 20 mg QHS PO Last administered on 02/15/19 21:43; Admin Dose 20 MG; Start 02/15/19 at 21:00 Bumetanide (Bumex) 1 mg BID DIURETICS PO ; Start 02/15/19 at 18:55 Diltiazem HCl (Cardizem Cd) 240 mg DAILY PO Last administered on 02/16/19 09:24; Admin Dose 240 MG; Start 02/16/19 at 09:00 Gabapentin (Neurontin) 100 mg TID PO Last administered on 02/16/19 12:26; Admin Dose 100 MG; Start 02/15/19 at 21:00 Hydralazine HCl (Apresoline) 25 mg BID PO Last administered on 02/16/19 09:23; Admin Dose 25 MG; Start 02/15/19 at 21:00 Pantoprazole (Protonix Tab) 40 mg AC BREAKFAST PO Last administered on 01/31 06:03; Admin Dose 40 MG; Start 02/16/19 at 07:00 Sucralfate (Carafate) 2 gm AC MEALS AND BEDTIME PO Last administered on 02/16/19 11:43; Admin Dose 2 GM; Start 02/15/19 at 21:00 Trazodone HCl (Desyrel) 50 mg QHS PO Last administered on 02/15/19 21:43; Admin Dose 50 MG; Start 02/15/19 at 21:00 Fluticasone/ Vilanterol (Breo Ellipta 200-25 Mcg Inh) 1 inh DAILY INH Last administered on 02/16/19 09:26; Admin Dose 1 INH; Start 02/16/19 at 09:00 Diagnostic Test (Pha) (Accu-Chek) 1 ea AC MEALS AND BEDTIME XX Last administered on 02/16/19 11:42; Admin Dose 1 EA; Start 02/15/19 at 21:00 Miscellaneous Information 1 ea NOTE XX ; Start 02/15/19 at 18:30 Glucose (Glutose) 15 gm Q15M PRN PO DECREASED GLUCOSE; Start 02/15/19 at 18:30 Glucose (Glutose) 22.5 gm Q15M PRN PO DECREASED GLUCOSE; Start 02/15/19 at 18:30 Dextrose (D50w Syringe) 25 ml Q15M PRN IV DECREASED GLUCOSE; Start 02/15/19 at 18:30 Dextrose (D50w Syringe) 50 ml Q15M PRN IV DECREASED GLUCOSE; Start 02/15/19 at 18:30 Glucagon (Glucagen) 1 mg Q15M PRN IM DECREASED GLUCOSE; Start 02/15/19 at 18:30 Glucose (Glutose) 15 gm Q15M PRN BUCCAL DECREASED GLUCOSE; Start 02/15/19 at 18:30 Assessment/Plan Hospital Course (Demo Recall) 1. Acute respiratory distress secondary to fluid overload from end-stage renal disease. now improved. Recent echo showed a preserved EF 2. End-stage renal disease -sp urgent hd early this am. - continue outpatient HD 3. History of A. fib Continue home meds 4. Diabetes Continue regimen 5. COPD Stable 6. Dyslipidemia Continue meds 7. Hypertension Continue meds 8. History of recent partial small-bowel obstruction JEY LORENZANA MD Feb 16, 2019 16:50
[2019-02-16] MEDS: ATORVASTATIN 20 MG TAB PO SCH (20:40)
[2019-02-16] MEDS: traZODone 50 MG TAB PO SCH (20:41)
--- NOTE | 2019-02-16 23:01 | CONS ---
DATE OF ADMISSION: 02/15/2019 DATE OF CONSULTATION: 02/16/2019 TYPE OF CONSULTATION: Renal HISTORY OF PRESENT ILLNESS: The patient is 79-year-old female with a past medical history of hyperte nsion, endstage renal disease on dialysis for 4 years, recent partial small-bowel obstruction, AFib o n Eliquis, diabetes, COPD, hyperlipidemia, presents to the emergency room after having shortness of b reath. Symptoms have been going on for the last 5 to 6 days. The patient also complains of orthopne a. The patient had dialysis on a routine schedule Thursday, Thursday, Thursday, became short of breath. The patient has had no complications on dialysis, dialyzing via AV fistula without complication. D enies getting any cramps on it. 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 Chest x-ray done on admission s howed pulmonary vascular congestion. Denies any chest pain. PAST MEDICAL HISTORY: Significant for the above. MEDICATIONS: Include: 1. Eliquis. 2. Amiodarone. 3. Lipitor. 4. Diltiazem. 5. Hydralazine. 6. Toprol. 7. Gabapentin. 8. Trazodone. 9. Bumex. 10. Symbicort. 11. Colace. 12. Protonix. 13. Carafate. 14. Amaryl. ALLERGIES: PATIENT HAS ALLERGY TO WARFARIN. SOCIAL HISTORY: Does not smoke, drink or do drugs. FAMILY HISTORY: No history of kidney disease. REVIEW OF SYSTEMS: A 14-point review of systems attempted and negative unless stated. PHYSICAL EXAMINATION: VITAL SIGNS: We see temperature 98, blood pressure is 164/80. HEENT: Normocephalic, atraumatic. Pupils equal, round and reactive to light. Pharynx is moist. NECK: Supple. HEART: Regular. LUNGS: Crackles bilaterally. ABDOMEN: Soft, nontender, nondistended. Normal bowel sounds. LABORATORY EVALUATION: Shows white count 6.2, hemoglobin 10, hematocrit 32. Sodium is 138, potassiu m 4.3, BUN 37, creatinine 4.87. BNP is 49,700. A chest x-ray is reviewed with radiologist. UA is r eviewed on microscopy. IMPRESSION: 1. Endstage renal disease. Urgent dialysis has been called. The patient is seen on dialysis. Asse ss daily for dialysis needs. May need successive dialysis in light excessive amount of fluid overloa d. 2. Acute respiratory failure secondary to fluid overload. Unclear what is the initial ____, as orion ent had fluid overload 1 day after. This patient denies noncompliance. Cardiology workup as an inpa tient or outpatient, depending on symptoms. 3. History of atrial fibrillation. Continue home medicines. 4. Diabetes. Continue regular regimen. Watch for hypoglycemia in light of sulfonylurea use. 5. Chronic obstructive pulmonary disease, stable. 6. Hypertension. Continue regular medications. Should come down with dialysis. Dictated By: JEY LORENZANA MD DF/NTS Conf#: [id number] DID#: [id number]
[2019-02-17] VITALS (18 sets, daily range): BP systolic 114–153; BP diastolic 59–71; PULSE 67–95; RESP 20–22
[2019-02-17] MEDS: INSULIN ASPART [NOVOLOG] 3 ML PEN SC SCH ×4 (01:00→12:17)
[2019-02-17] MEDS: ACCU-CHEK XX SCH ×3 (01:27→12:17)
[2019-02-17] MEDS: PANTOPRAZOLE (EC) 40 MG TAB PO SCH (06:08)
[2019-02-17] MEDS: BUMETANIDE 1 MG TAB PO SCH (06:08)
[2019-02-17] MEDS: SUCRALFATE 1 GM TAB PO SCH ×2 (06:08→12:18)
[2019-02-17] MEDS: APIXABAN 5 MG TABLET PO SCH ×2 (09:00→12:18)
[2019-02-17] MEDS: FLUTICASONE/VILANTEROL 200-25 INH DEVICE INH SCH ×2 (09:00→12:19)
[2019-02-17] MEDS: AMIODARONE 200 MG TAB PO SCH (09:00)
[2019-02-17] MEDS: DILTIAZEM (CD) 240 MG CAP PO SCH (09:00)
[2019-02-17] MEDS: GABAPENTIN 100 MG CAP PO SCH ×2 (09:00→12:18)
--- NOTE | 2019-02-17 09:14 | CONS ---
Consult Date/Type/Reason Admit Date/Time Feb 15, 2019 at 18:01 Initial Consult Date 02/16/19 Date/Time of Note DATE: 02/17/19 TIME: 09:09 Subjective 79-year-old female with a past medical history of hypertension, endstage renal disease on dialysis for 4 years, recent partial small-bowel obstruction, AFib on Eliquis, diabetes, COPD, hyperlipidemia, presents to the emergency room after having shortness of breath. Symptoms have been going on for the last 5 to 6 days. The patient also complains of orthopnea. The patient had dialysis on a routine schedule Thursday, Thursday, Thursday, became short of breath. The patient has had no complications on dialysis, dialyzing via AV fistula without complica tion. Denies getting any cramps on it. 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 Chest x-ray done on admission showed pulmonary vascular congestion. Denies any chest pain. on hd today. PHYSICAL EXAMINATION: HEENT: Normocephalic, atraumatic. Pupils equal, round and reactive to light. Pharynx is moist. NECK: Supple. HEART: Regular. LUNGS: Crackles bilaterally. ABDOMEN: Soft, nontender, nondistended. Normal bowel sounds. Objective Vitals Vital Signs Date Temp Pulse Resp B/P (MAP) Pulse Ox O2 O2 Flow FiO2 Time Delivery Rate 02/17/19 98.0 71 153/67 96 Nasal 07:48 (95) Cannula 02/17/19 22 01:51 02/17/19 3.0 01:28 Intake and Output 02/16/19 02/16/19 02/17/19 1414:59 22:59 06:59 IntakeIntake Total 420 ml OutputOutput Total 3400 ml 1 ml BalanceBalance -3400 ml 419 ml Results/Medications Result Diagram: 02/17/1918 02/17/19 0518 Results 24 hrs Laboratory Tests Test 02/16/19 09:18 02/16/19 09:40 02/16/19 11:42 02/16/19 12:25 Bedside Glucose 67 L 105 149 125 Test 02/16/19 17:20 02/16/19 20:40 02/17/19 01:17 02/17/19 05:18 Bedside Glucose 97 116 89 White Blood Count 4.6 L Red Blood Count 3.12 L Hemoglobin 9.3 L Hematocrit 30.0 L Mean Corpuscular 96.2 Volume Mean Corpuscular 29.8 Hemoglobin Mean Corpuscular 31.0 L Hemoglobin Concent Red Cell 17.2 H Distribution Width Platelet Count 233 Mean Platelet Volume 11.2 H Immature 0.400 Granulocytes % Neutrophils % 65.3 Lymphocytes % 18.0 Monocytes % 11.0 Eosinophils % 4.2 Basophils % 1.1 Nucleated Red Blood 0.0 Cells % Immature 0.020 Granulocytes # Neutrophils # 3.0 Lymphocytes # 0.8 Monocytes # 0.5 Eosinophils # 0.2 Basophils # 0.1 Nucleated Red Blood 0.0 Cells # Sodium Level 139 Potassium Level 4.3 Chloride Level 97 Carbon Dioxide Level 34 H Anion Gap 8 Blood Urea Nitrogen 28 #H Creatinine 4.50 #H Est Glomerular Filtrat Rate mL/min Glucose Level 92 Calcium Level 8.7 Test 02/17/19 06:07 02/17/19 08:00 Bedside Glucose 90 98 Home Meds Active Scripts Gabapentin* (Gabapentin*) 100 Mg Capsule, 100 MG PO TID for 30 Days, CAP Prov:FOSTER OWEN MD 02/09/19 Docusate Sodium* (Colace*) 100 Mg Capsule, 100 MG PO Q24H PRN for CONSTIPATION, #30 CAP Prov:FOSTER OWEN MD 02/09/19 Metoprolol Succinate* (Toprol XL*) 25 Mg Tab.sr.24h, 25 MG PO BID for 30 Days Prov:FOSTER OWEN MD 02/09/19 Amiodarone Hcl* (Amiodarone Hcl*) 200 Mg Tablet, 200 MG PO DAILY for 30 Days, TAB Prov:FOSTER OWEN MD 02/09/19 Reported Medications Trazodone Hcl* (Desyrel*) 50 Mg Tab, 50 MG PO QHS, #30 TAB 02/04/19 Pantoprazole* (Pantoprazole*) 40 Mg Tablet.dr, 40 MG PO AC BREAKFAST, TAB 02/04/19 Glimepiride* (Glimepiride*) 2 Mg Tablet, 1 MG PO WITH BREAKFAST, TAB 02/04/19 Diltiazem Hcl* (Diltiazem XT) 240 Mg Capsule.er, 240 MG PO DAILY, #30 CAP 02/04/19 Bumetanide* (Bumetanide*) 1 Mg Tablet, 1 MG PO BID, TAB 02/04/19 Apixaban* (Eliquis*) 2.5 Mg Tablet, 2.5 MG PO BID, TAB 02/04/19 Sucralfate* (Carafate*) 1 Gm Tab, 2 GM PO AC MEALS AND BEDTIME, TAB 02/04/19 Atorvastatin Calcium* (Atorvastatin Calcium*) 20 Mg Tablet, 20 MG PO QHS, #30 TAB 02/04/19 Budesonide-Formoterol Fumarate* (Symbicort*) 160-4.5 Hfa.aer.ad, 2 PUFF INHALATION BID, #1 EACH 02/04/19 Hydralazine Hcl* (Hydralazine Hcl*) 25 Mg Tab, 25 MG PO BID, #60 TAB 02/04/19 Medications Current Medications IV Flush (NS 3 ml) 3 ml PER PROTOCOL IV ; Start 02/15/19 at 18:30 Ondansetron HCl (Zofran Inj) 4 mg Q6H PRN IV NAUSEA/VOMITING; Start 02/15/19 at 18:30 Acetaminophen (Tylenol Tab) 650 mg Q6H PRN PO .PAIN 1-3 OR TEMP; Start 02/15/19 at 18:30 Acetaminophen/ Hydrocodone Bitart ([place] (5/325)) 1 tab Q6H PRN PO .MOD PAIN 4- 6; Start 02/15/19 at 18:30 Morphine Sulfate (morphine) 2 mg Q4H PRN IV .SEVERE PAIN 7-10; Start 02/15/19 at 18:30 Docusate Sodium (Colace) 100 mg Q12H PRN PO .CONSTIPATION; Start 02/15/19 at 18:30 Magnesium Hydroxide (Milk Of Mag) 30 ml DAILY PRN PO .CONSTIPATION; Start 02/15/19 at 18:30 Lorazepam (Ativan) 0.5 mg Q6H PRN IV ANXIETY; Start 02/15/19 at 18:30 Albuterol/ Ipratropium (Duoneb) 3 ml Q4H RESP THERAPY PRN HHN SHORTNESS OF BREATH; Start 02/15/19 at 18:30 Nitroglycerin (Nitroglycerin (Sl Tab) 0.4 Mg) 1 tab Q5M PRN SL ANGINA; Start 02/15/19 at 18:30 Diagnostic Test (Pha) (Accu-Chek) 1 ea 02 XX Last administered on 02/17/19 01:27; Admin Dose 1 EA; Start 02/16/19 at 02:00 Insulin Aspart (Novolog Insulin Pen) NOVOLOG *MILD* ALGORI... Q4 SC ; Start 02/15/19 at 21:00 Amiodarone HCl (Cordarone) 200 mg DAILY PO Last administered on 02/16/19 09:24; Admin Dose 200 MG; Start 02/16/19 at 09:00 Apixaban (Eliquis) 2.5 mg BID PO Last administered on 02/16/19 20:41; Admin Dose 2.5 MG; Start 02/15/19 at 21:00 Atorvastatin Calcium (Lipitor) 20 mg QHS PO Last administered on 02/16/19 20:40; Admin Dose 20 MG; Start 02/15/19 at 21:00 Bumetanide (Bumex) 1 mg BID DIURETICS PO Last administered on 02/17/19 06:08; Admin Dose 1 MG; Start 02/15/19 at 18:55 Diltiazem HCl (Cardizem Cd) 240 mg DAILY PO Last administered on 02/16/19 09:24; Admin Dose 240 MG; Start 02/16/19 at 09:00 Gabapentin (Neurontin) 100 mg TID PO Last administered on 02/16/19 20:40; Admin Dose 100 MG; Start 02/15/19 at 21:00 Hydralazine HCl (Apresoline) 25 mg BID PO Last administered on 02/16/19 20:41; Admin Dose 25 MG; Start 02/15/19 at 21:00 Pantoprazole (Protonix Tab) 40 mg AC BREAKFAST PO Last administered on 02/17/19 06:08; Admin Dose 40 MG; Start 02/16/19 at 07:00 Sucralfate (Carafate) 2 gm AC MEALS AND BEDTIME PO Last administered on 02/17/19 06:08; Admin Dose 2 GM; Start 02/15/19 at 21:00 Trazodone HCl (Desyrel) 50 mg QHS PO Last administered on 02/16/19 20:41; Admin Dose 50 MG; Start 02/15/19 at 21:00 Fluticasone/ Vilanterol (Breo Ellipta 200-25 Mcg Inh) 1 inh DAILY INH Last a dministered on 02/16/19at 09:26; Admin Dose 1 INH; Start 02/16/19 at 09:00 Diagnostic Test (Pha) (Accu-Chek) 1 ea AC MEALS AND BEDTIME XX Last administered on 02/17/19at 07:00; Admin Dose 1 EA; Start 02/15/19 at 21:00 Miscellaneous Information 1 ea NOTE XX ; Start 02/15/19 at 18:30 Glucose (Glutose) 15 gm Q15M PRN PO DECREASED GLUCOSE; Start 02/15/19 at 18:30 Glucose (Glutose) 22.5 gm Q15M PRN PO DECREASED GLUCOSE; Start 02/15/19 at 18:30 Dextrose (D50w Syringe) 25 ml Q15M PRN IV DECREASED GLUCOSE; Start 02/15/19 at 18:30 Dextrose (D50w Syringe) 50 ml Q15M PRN IV DECREASED GLUCOSE; Start 02/15/19 at 18:30 Glucagon (Glucagen) 1 mg Q15M PRN IM DECREASED GLUCOSE; Start 02/15/19 at 18:30 Glucose (Glutose) 15 gm Q15M PRN BUCCAL DECREASED GLUCOSE; Start 02/15/19 at 18:30 Assessment/Plan Hospital Course (Demo Recall) 1. Acute respiratory distress secondary to fluid overload from end-stage renal disease. now improving. -Recent echo showed a preserved EF 2. End-stage renal disease -monitor on hd - continue outpatient HD after treatment today. - recommended decreasing outpatient dry weight. 3. History of A. fib Continue home meds 4. Diabetes Continue regimen 5. COPD Stable 6. Dyslipidemia Continue meds 7. Hypertension Continue meds 8. History of recent partial small-bowel obstruction JEY LORENZANA MD Feb 17, 2019 09:14
--- NOTE | 2019-02-17 11:05 | CONS ---
Consultation Date/Type/Reason Admit Date/Time Feb 15, 2019 at 18:01 Initial Consult Date 02/16/19 Type of Consult Pulmonary Patient is a 79-year-old lady who was admitted with few days history of increasing shortness of breath. Upon evaluation a chest x-ray was done with a BMP, chest x-ray showing pulmonary edema and BNP level is extremely high., Patient has been started on Bumex with significant improvement in symptoms. Denies any chest pain, coughing, wheezing. Any sputum production or hemoptysis. Any fever or chills. By the time I saw the patient, patient completely awake and alert and was laying comfortably in bed. Past medical history; 1. End-stage renal disease. 2. CHF. 3. Neuropathy. 4. Hypertension. 5. History of cholecystectomy. 6. Hysterectomy. 7. History of bowel obstruction x2 with surgery. 8. Diabetes. 9. History of cardiac arrhythmia. 10. Anemia of chronic disease. Medications; reviewed. Allergies; as outlined above. Family history; patient is . 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 Social history; most of any smoking. Review of systems; denies any headache, seizures, visual changes. Denies any chest pain, shortness of breath has improved. Denies any coughing, sputum production wheezing or any hemoptysis. Denies any fever or chills. Denies any abdominal pain, nausea vomiting. Any melena hematochezia. Orthopnea has improved. Denies any edema. General exam; elderly female, awake alert, currently in no distress. Date/Time of Note DATE: 02/17/19 TIME: 11:01 24 HR Interval Summary Free Text/Dictation Patient's condition is stable. Remains awake and alert. Getting hemodialysis at bedside. General exam; elderly female, currently in no distress. On 2 L nasal cannula. H ENT exam; supple neck, positive JVD. No lymphadenopathy. Midline trachea. No thyromegaly. Patient does have carious teeth. Chest exam; diminished but clear breath sounds. S1-S2 audible, no murmurs. Irregular rhythm. Abdomen exam; soft, nontender. No organomegaly. Bowel sounds are audible. Multiple well-healed scars are present. Extremity exam; peripheral edema. AWNING SPREADER exam; no focal deficit. Assessment and recommendations; 1. Patient with history of end-stage renal disease, dialysis dependent admitted for CHF exacerbation with interval improvement. 2. Other comorbidities include history of hypertension, chronic atrial fibrillation, diabetes, chronic anemia, neuropathy. 3. History of bowel obstruction x2. 4. History of cholecystectomy and hysterectomy. Continue current supportive care. Dialysis per sink maker. Exam/Review of Systems Exam Vitals Vital Signs Date Temp Pulse Resp B/P (MAP) Pulse Ox O2 O2 Flow FiO2 Time Delivery Rate 02/17/19 Nasal 4.0 08:30 Cannula 02/17/19 82 20 138/68 96 08:20 (91) 02/17/19 98.0 07:48 Intake and Output 02/16/19 02/16/19 02/17/19 1515:00 23:00 07:00 IntakeIntake Total 420 ml OutputOutput Total 3400 ml 1 ml BalanceBalance -3400 ml 419 ml Results Result Diagram: 02/17/1918 02/17/1918 Results 24hrs Laboratory Tests Test 02/16/19 11:42 02/16/19 12:25 02/16/19 17:20 02/16/19 20:40 Bedside Glucose 149 125 97 116 Test 02/17/19 01:17 02/17/19 05:18 02/17/19 06:07 02/17/19 08:00 Bedside Glucose 89 90 98 White Blood Count 4.6 L Red Blood Count 3.12 L Hemoglobin 9.3 L Hematocrit 30.0 L Mean Corpuscular 96.2 Volume Mean Corpuscular 29.8 Hemoglobin Mean Corpuscular 31.0 L Hemoglobin Concent Red Cell 17.2 H Distribution Width Platelet Count 233 Mean Platelet Volume 11.2 H Immature 0.400 Granulocytes % Neutrophils % 65.3 Lymphocytes % 18.0 Monocytes % 11.0 Eosinophils % 4.2 Basophils % 1.1 Nucleated Red Blood 0.0 Cells % Immature 0.020 Granulocytes # Neutrophils # 3.0 Lymphocytes # 0.8 Monocytes # 0.5 Eosinophils # 0.2 Basophils # 0.1 Nucleated Red Blood 0.0 Cells # Sodium Level 139 Potassium Level 4.3 Chloride Level 97 Carbon Dioxide Level 34 H Anion Gap 8 Blood Urea Nitrogen 28 #H Creatinine 4.50 #H Est Glomerular Filtrat Rate mL/min Glucose Level 92 Calcium Level 8.7 Medications Medication Current Medications IV Flush (NS 3 ml) 3 ml PER PROTOCOL IV ; Start 02/15/19 at 18:30 Ondansetron HCl (Zofran Inj) 4 mg Q6H PRN IV NAUSEA/VOMITING; Start 02/15/19 at 18:30 Acetaminophen (Tylenol Tab) 650 mg Q6H PRN PO .PAIN 1-3 OR TEMP; Start 02/15/19 at 18:30 Acetaminophen/ Hydrocodone Bitart ([place] (5/325)) 1 tab Q6H PRN PO .MOD PAIN 4- 6; Start 02/15/19 at 18:30 Morphine Sulfate (morphine) 2 mg Q4H PRN IV .SEVERE PAIN 7-10; Start 02/15/19 at 18:30 Docusate Sodium (Colace) 100 mg Q12H PRN PO .CONSTIPATION; Start 02/15/19 at 18:30 Magnesium Hydroxide (Milk Of Mag) 30 ml DAILY PRN PO .CONSTIPATION; Start 02/15/19 at 18:30 Lorazepam (Ativan) 0.5 mg Q6H PRN IV ANXIETY; Start 02/15/19 at 18:30 Albuterol/ Ipratropium (Duoneb) 3 ml Q4H RESP THERAPY PRN HHN SHORTNESS OF BREATH; Start 02/15/19 at 18:30 Nitroglycerin (Nitroglycerin (Sl Tab) 0.4 Mg) 1 tab Q5M PRN SL ANGINA; Start 02/15/19 at 18:30 Diagnostic Test (Pha) (Accu-Chek) 1 ea 02 XX Last administered on 02/17/19at 01:27; Admin Dose 1 EA; Start 02/16/19 at 02:00 Insulin Aspart (Novolog Insulin Pen) NOVOLOG *MILD* ALGORI... Q4 SC ; Start 02/15/19 at 21:00 Amiodarone HCl (Cordarone) 200 mg DAILY PO Last administered on 02/16/19at 09:24; Admin Dose 200 MG; Start 02/16/19 at 09:00 Apixaban (Eliquis) 2.5 mg BID PO Last administered on 02/16/19at 20:41; Admin Dose 2.5 MG; Start 02/15/19 at 21:00 Atorvastatin Calcium (Lipitor) 20 mg QHS PO Last administered on 02/16/19at 20:40; Admin Dose 20 MG; Start 02/15/19 at 21:00 Bumetanide (Bumex) 1 mg BID DIURETICS PO Last administered on 02/17/19 06:08; Admin Dose 1 MG; Start 02/15/19 at 18:55 Diltiazem HCl (Cardizem Cd) 240 mg DAILY PO Last administered on 02/16/19 09:24; Admin Dose 240 MG; Start 02/16/19 at 09:00 Gabapentin (Neurontin) 100 mg TID PO Last administered on 02/16/19 20:40; Admin Dose 100 MG; Start 02/15/19 at 21:00 Hydralazine HCl (Apresoline) 25 mg BID PO Last administered on 02/16/19 20:41; Admin Dose 25 MG; Start 02/15/19 at 21:00 Pantoprazole (Protonix Tab) 40 mg AC BREAKFAST PO Last administered on 02/17/19 06:08; Admin Dose 40 MG; Start 02/16/19 at 07:00 Sucralfate (Carafate) 2 gm AC MEALS AND BEDTIME PO Last administered on 02/17/19 06:08; Admin Dose 2 GM; Start 02/15/19 at 21:00 Trazodone HCl (Desyrel) 50 mg QHS PO Last administered on 02/16/19 20:41; Admin Dose 50 MG; Start 02/15/19 at 21:00 Fluticasone/ Vilanterol (Breo Ellipta 200-25 Mcg Inh) 1 inh DAILY INH Last administered on 02/16/19 09:26; Admin Dose 1 INH; Start 02/16/19 at 09:00 Diagnostic Test (Pha) (Accu-Chek) 1 ea AC MEALS AND BEDTIME XX Last administered on 02/17/19at 07:00; Admin Dose 1 EA; Start 02/15/19 at 21:00 Miscellaneous Information 1 ea NOTE XX ; Start 02/15/19 at 18:30 Glucose (Glutose) 15 gm Q15M PRN PO DECREASED GLUCOSE; Start 02/15/19 at 18:30 Glucose (Glutose) 22.5 gm Q15M PRN PO DECREASED GLUCOSE; Start 02/15/19 at 18:30 Dextrose (D50w Syringe) 25 ml Q15M PRN IV DECREASED GLUCOSE; Start 02/15/19 at 18:30 Dextrose (D50w Syringe) 50 ml Q15M PRN IV DECREASED GLUCOSE; Start 02/15/19 at 18:30 Glucagon (Glucagen) 1 mg Q15M PRN IM DECREASED GLUCOSE; Start 02/15/19 at 18:30 Glucose (Glutose) 15 gm Q15M PRN BUCCAL DECREASED GLUCOSE; Start 02/15/19 at 18:30 ALMA ESCALONA Feb 17, 2019 11:05
--- NOTE | 2019-02-17 15:33 | DS ---
Date/Time of Note Date/Time of Note DATE: 02/17/19 TIME: 15:32 Discharge Summary Admission/Discharge Info Admit Date/Time Feb 15, 2019 at 18:01 Discharge Date/Time Feb 17, 2019 at 14:14 Discharge Diagnosis 1. Acute respiratory distress secondary to fluid overload from end-stage renal disease Patient has improved with 2 dialysis sessions and removal of fluid Patient stable for DC back to home with home health and supplemental oxygen Recent echo showed a preserved EF 2. End-stage renal disease Nephrology consultation appreciated, continue outpatient HD 3. History of A. fib Continue home meds 4. Diabetes Continue regimen 5. COPD Stable 6. Dyslipidemia Continue meds 7. Hypertension Continue meds 8. History of recent partial small-bowel obstruction No acute issues Patient Condition: Good Hospital Course Patient is a 79-year-old female with a history of obesity, diabetes, hypertension, dyslipidemia, recent partial small bowel obstruction and end-stage renal disease who presents with acute respiratory failure secondary to fluid overload. Patient did have a recent echo that showed a preserved EF, patient had 2 dialysis sessions with improvement in respiratory status, patient was stable for DC to home with home health and home O2. On the day of discharge patient's vitals, labs and physical exam are stable. Home Meds Active Scripts Gabapentin* (Gabapentin*) 100 Mg Capsule, 100 MG PO TID for 30 Days, CAP Prov:FOSTER OWEN MD 02/09/19 Docusate Sodium* (Colace*) 100 Mg Capsule, 100 MG PO Q24H PRN for CONSTIPATION, #30 CAP Prov:FOSTER OWEN MD 02/09/19 Metoprolol Succinate* (Toprol XL*) 25 Mg Tab.sr.24h, 25 MG PO BID for 30 Days Prov:FOSTER OWEN MD 02/09/19 Amiodarone Hcl* (Amiodarone Hcl*) 200 Mg Tablet, 200 MG PO DAILY for 30 Days, TAB Prov:FOSTER OWEN MD 02/09/19 Reported Medications Trazodone Hcl* (Desyrel*) 50 Mg Tab, 50 MG PO QHS, #30 TAB 02/04/19 Pantoprazole* (Pantoprazole*) 40 Mg Tablet.dr, 40 MG PO AC BREAKFAST, TAB 02/04/19 Glimepiride* (Glimepiride*) 2 Mg Tablet, 1 MG PO WITH BREAKFAST, TAB 02/04/19 Diltiazem Hcl* (Diltiazem XT) 240 Mg Capsule.er, 240 MG PO DAILY, #30 CAP 02/04/19 Bumetanide* (Bumetanide*) 1 Mg Tablet, 1 MG PO BID, TAB 02/04/19 Apixaban* (Eliquis*) 2.5 Mg Tablet, 2.5 MG PO BID, TAB 02/04/19 Sucralfate* (Carafate*) 1 Gm Tab, 2 GM PO AC MEALS AND BEDTIME, TAB 02/04/19 Atorvastatin Calcium* (Atorvastatin Calcium*) 20 Mg Tablet, 20 MG PO QHS, #30 TAB 02/04/19 Budesonide-Formoterol Fumarate* (Symbicort*) 160-4.5 Hfa.aer.ad, 2 PUFF IN [place] BID, #1 EACH 02/04/19 Hydralazine Hcl* (Hydralazine Hcl*) 25 Mg Tab, 25 MG PO BID, #60 TAB 02/04/19 Follow-up Plan FOLLOW UP WITH YOUR PRIMARY CARE PHYSICIAN IN 1-2 WEEKS, follow-up with dialysis center as scheduled, follow-up with home health Primary Care Provider Care Physician No Primary Time spent on discharge: > 30 minutes MEGA ANNE Feb 17, 2019 15:33
== END 2019-02-17 14:14 | disposition home health service (06) | DRG 189 ==
LOC: E/R 13:10 → 6WM 18:01
PROVIDERS: ADMIT Hospitalist; ATTEND Internal Medicine
PROC: 5A1D70Z Performance of Urinary Filtration, Intermittent, Less than 6 Hours Per Day (ICD-10-PCS; principal; 2019-02-16)
DX: J96.00 Acute respiratory failure, unspecified whether with hypoxia or hypercapnia (principal); N18.6 End stage renal disease; I13.2 Hypertensive heart and chronic kidney disease with heart failure and with stage 5 chronic kidney disease, or end stage renal disease; E87.70 Fluid overload, unspecified; E11.22 Type 2 diabetes mellitus with diabetic chronic kidney disease; I50.9 Heart failure, unspecified; Z99.2 Dependence on renal dialysis
CPT/HCPCS: 36415; 71045; 80048; 80061; 82962; 83036; 83880; 84439; 84443; 84484; 85025; 87340; 90935; 92610; 93005; 97161; J1815

== ENCOUNTER 2019-03-16 11:58 | Emergency (ER) | payer OTHER ==
[~2019-03-16] VITALS: Ht 152.4 cm; Wt 70.0 kg
[~2019-03-16 11:58] MED LIST changes: +AMLO-147 PO; +CALC667C PO; +METO-319 PO; +METO-429 PO; +PIOG15TA67 PO
[2019-03-16 12:09] VITALS: Ht 152.4 cm; Wt 70.0 kg
[2019-03-16] MEDS ORDERED: morphine 4 MG/ML VIAL IV STA (12:25)
--- NOTE | 2019-03-16 13:25 | ERD ---
ER Documentation Chief Complaint Chief Complaint BIB [facility] FOR EVAL OF LEFT ARM PAIN DURING HD. DID NOT COMPLETE. HPI 79-year-old female presenting with left upper extremity pain that started during dialysis. Patient states that she always has left upper extremity pain that is worse with dialysis, however today her pain was more severe than usual. She describes it as a sharp aching pain in her entire upper extremity that radiates up into her left neck. Pain is currently a 10 out of 10. Denies any associated chest pain or shortness of breath. No recent fevers or chills. No recent injuries to the upper extremity. ROS All systems reviewed and are negative except as per history of present illness. Medications Home Meds Active Scripts Gabapentin* (Gabapentin*) 100 Mg Capsule, 100 MG PO TID for 30 Days, CAP Prov:FOSTER OWEN MD 02/09/19 Docusate Sodium* (Colace*) 100 Mg Capsule, 100 MG PO Q24H PRN for CONSTIPATION, #30 CAP Prov:FOSTER OWEN MD 02/09/19 Reported Medications Pioglitazone Hcl* (Pioglitazone Hcl*) 15 Mg Tablet, 15 MG PO DAILY, TAB 03/16/19 Calcium Acetate* (Calcium Acetate*) 667 Mg Capsule, 1334 MG PO WITH MEALS, #60 CAP 03/16/19 Metoprolol Succinate* (Toprol XL*) 50 Mg Tab.er.24h, 50 MG PO BID, #30 TAB 03/16/19 Amlodipine Besylate* (Amlodipine Besylate*) 10 Mg Tablet, 5 MG PO DAILY, #30 TAB 03/16/19 Trazodone Hcl* (Desyrel*) 50 Mg Tab, 50 MG PO QHS, #30 TAB 02/04/19 Pantoprazole* (Pantoprazole*) 40 Mg Tablet.dr, 40 MG PO AC BREAKFAST, TAB 02/04/19 Glimepiride* (Glimepiride*) 2 Mg Tablet, 1 MG PO BID, TAB 02/04/19 Diltiazem Hcl* (Diltiazem XT) 240 Mg Capsule.er, 240 MG PO DAILY, #30 CAP 02/04/19 Bumetanide* (Bumetanide*) 1 Mg Tablet, 1 MG PO BID, TAB 02/04/19 Apixaban* (Eliquis*) 2.5 Mg Tablet, 2.5 MG PO BID, TAB 02/04/19 Sucralfate* (Carafate*) 1 Gm Tab, 1 GM PO QID, TAB 02/04/19 Atorvastatin Calcium* (Atorvastatin Calcium*) 20 Mg Tablet, 20 MG PO QHS, #30 TAB 02/04/19 Budesonide-Formoterol Fumarate* (Symbicort*) 160-4.5 Hfa.aer.ad, 2 PUFF INH ALATION BID, #1 EACH 02/04/19 Hydralazine Hcl* (Hydralazine Hcl*) 25 Mg Tab, 25 MG PO BID, #60 TAB 02/04/19 Discontinued Reported Medications Metoprolol Tartrate* (Lopressor*) 50 Mg Tab, 50 MG PO BID, #60 TAB 03/16/19 Discontinued Scripts Metoprolol Succinate* (Toprol XL*) 25 Mg Tab.sr.24h, 25 MG PO BID for 30 Days Prov:FOSTER OWEN MD 02/09/19 Amiodarone Hcl* (Amiodarone Hcl*) 200 Mg Tablet, 200 MG PO DAILY for 30 Days, TAB Prov:FOSTER OWEN MD 02/09/19 Allergies Allergies: Coded Allergies: warfarin (Verified Allergy, Unknown, 03/16/19) PMhx/Soc History of Surgery: Yes (Left upper extremity AV fistula) Anesthesia Reaction: No Hx Neurological Disorder: No Hx Respiratory Disorders: No Hx Cardiac Disorders: Yes (CHF) Hx Psychiatric Problems: No Hx Miscellaneous Medical Probl: Yes (HTN , OBESITY, ESRD , SOB , GENRALIZED WEAKNESS .) Hx Alcohol Use: No Hx Substance Use: No Hx Tobacco Use: No Smoking Status: Never smoker FmHx Family History: diabetes Physical Exam Vitals Vital Signs Date Temp Pulse Resp B/P (MAP) Pulse Ox O2 O2 Flow FiO2 Time Delivery Rate 03/16/19 97.4 80 16 130/60 99 12:09 (83) Physical Exam Const: tearful secondary to pain. Nontoxic Head: Atraumatic Eyes: Normal Conjunctiva ENT: Normal External Ears, Nose and Mouth. Neck: Full range of motion. No meningismus. Left paraspinal muscle tenderness to palpation. No midline tenderness. Resp: Clear to auscultation bilaterally Cardio: Regular rate and rhythm, no murmurs Abd: Soft, non tender, non distended. Normal bowel sounds Skin: No petechiae or rashes Back: No midline or flank tenderness Ext: No cyanosis, or edema. Left upper extremity AV fistula with palpable thrill. Cap refill less than 2 seconds. 2+ radial pulse. No swelling or tenderness to palpation of the upper extremity. Neur: Awake and alert Psych: Normal Mood and Affect Result Diagram: 03/16/19 1231 03/16/19 1231 Results 24 hrs Laboratory Tests Test 03/16/19 12:31 White Blood Count 4.7 10^3/ul Red Blood Count 3.91 10^6/ul Hemoglobin 12.0 g/dl Hematocrit 37.2 % Mean Corpuscular Volume 95.1 fl Mean Corpuscular Hemoglobin 30.7 pg Mean Corpuscular Hemoglobin Concent 32.3 g/dl Red Cell Distribution Width 19.8 % Platelet Count 249 10^3/UL Mean Platelet Volume 10.1 fl Immature Granulocytes % 0.400 % Neutrophils % 72.0 % Lymphocytes % 16.3 % Monocytes % 8.8 % Eosinophils % 1.9 % Basophils % 0.6 % Nucleated Red Blood Cells % 0.0 /100WBC Immature Granulocytes # 0.020 10^3/ul Neutrophils # 3.4 10^3/ul Lymphocytes # 0.8 10^3/ul Monocytes # 0.4 10^3/ul Eosinophils # 0.1 10^3/ul Basophils # 0.0 10^3/ul Nucleated Red Blood Cells # 0.0 10^3/ul Sodium Level 135 mmol/L Potassium Level 4.1 mmol/L Chloride Level 90 mmol/L Carbon Dioxide Level 33 mmol/L Anion Gap 12 Blood Urea Nitrogen 36 mg/dl Creatinine 3.93 mg/dl Est Glomerular Filtrat Rate mL/min mL/min Glucose Level 160 mg/dl Calcium Level 9.2 mg/dl Troponin I < 0.012 ng/ml Current Medications Medications Dose Sig/Rachana Start Time Status Last (Trade) Ordered Route PRN Stop Time Admin Dose Reason Admin Morphine 4 mg ONCE STAT 03/16/19 DC 03/16/19 Sulfate IV 12:25 12:34 (morphine) 03/16/19 12:27 Procedures/MDM EMERGENT LABS AND DIAGNOSTIC STUDIES: Lab Results above were reviewed and interpreted by me. CBC: no anemia or evidence of infection CMP: No evidence of clinically significant electrolyte abnormality, acidosis, renal failure, hypoglycemia, liver disease, or biliary obstruction Lipase: no evidence of pancreatitis Troponin within normal limits, not indicative of cardiac ischemia Lactate within normal limits without evidence of sepsis or tissue hypoperfusion UA: no evidence of infection 12-lead EKG was interpreted by Madonna Spivey MD: Atrial fibrillation at 92 bpm Right axis deviation QTC prolonged at [address] or T wave changes suggestive of acute ischemia or STEMI. Radiology Results as interpreted by Radiology below were reviewed by Fran Spivey MD: Chest x-ray shows no acute abnormalities Venous ultrasound left upper extremity shows no evidence of DVT Initial Nursing notes reviewed. Previous Medical Records requested via the Electronic Health Record. 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 She is currently neurovascularly intacat on exam. Do not suspect acute limb ischemia. Patient will need to followup with a vascular surgeon outpatient for further management. Pain may also be due to cervical radiculopathy, which is sylvie likely in her case. Return precautions given. Pain well controlled upon discharge. Patient's blood pressure was elevated (>120/80) but appears stable without evidence of hypertensive emergency or urgency. The patient was counseled about the risks of hypertension and urged to pursue outpatient monitoring and therapy within a week with their primary care physician. Departure Diagnosis: Primary Impression: Pain of left arm Condition: Stable MABEL SPIVEY MD Mar 16, 2019 13:25
[2019-03-16 15:03] VITALS: BP 131/60; PULSE 85; RESP 16
== END 2019-03-16 15:04 | disposition home or self-care (01) ==
LOC: E/R 11:58
DX: M79.602 Pain in left arm (principal); I50.9 Heart failure, unspecified; I12.0 Hypertensive chronic kidney disease with stage 5 chronic kidney disease or end stage renal disease; N18.5 Chronic kidney disease, stage 5
CPT/HCPCS: 71045; 80048; 84484; 85025; 93005; 93971; 99285; J2270